=== PATIENT | male | born 1930 | race African-American/Black ===

== ENCOUNTER 2016-09-11 12:12 | Observation (INO) ==
[2016-09-11] MEDS ORDERED: 0.9 % Sodium Chloride 1,000 ML IV ONE (12:56)
[2016-09-11 13:03] LABS: Basophils % 0.7 %; Eosinophils # 0.4 K/mcL (0.0-0.6); Eosinophils % 7.3 %; Hematocrit 38.1 % (37.5-50.1); Hemoglobin 12.9 g/dL (12.9-16.9); Immature Granulocytes % 0.2 % (0-4); Immature Platelets 1.4 % (1.1-6.1); Lymphocytes # 1.5 K/mcL (0.6-4.6); Lymphocytes % 24.9 %; Mean Corpuscular HGB Conc 33.9 g/dL (31.6-35.5); Mean Corpuscular Hemoglobin 31.9 pg (28.0-33.3); Mean Corpuscular Volume 94.3 fL (83.0-100.0); Mean Platelet Volume 9.1 fL (9.4-12.4); Monocytes # 0.5 K/mcL (0.0-1.3); Monocytes % 7.8 %; Neutrophils # 3.6 K/mcL (1.6-8.9); Platelet Count 194 K/mcL (140-400); Red Blood Count 4.04 M/mcL (4.19-5.50); Red Cell Distribution Width 13.1 % (11.5-14.5); Segmented Neutrophils % 59.1 %
--- NOTE | 2016-09-11 13:12 | Emergency Department Note ---
Disposition Clinical Impression: Syncope and collapse, Prostate cancer, Dehydration Disposition: Admitted As Inpatient Condition: Fair Time of Disposition: 15:32 Syncope HPI - General Chief Complaint: ED Syncope Stated Complaint: passed out Time Seen by Provider: 09/11/16 12:14 Source: patient, family, EMS Limitations: no limitations Nursing Notes Reviewed: Yes Vital Signs Reviewed: Yes - History of Present Illness HPI Narrative: 86-year-old male with history of hypertension, hyperlipidemia, peripheral edema , he stated he has had multiple episodes of syncope in the last several years, episode 1 month ago, he presents today with an episode of syncope that lasted about a minute. 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 He was then driven to the emergency department. Patient denies any chest pain headache abdominal pain at this time. 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 Sousa in consultation with Dr. Beba Montenegro, with treatment for Prost CA with Denosumab. Patient denies any weight loss chills, headache, urinary complaints, recent fevers, any chest pain abdominal pain nausea vomiting Pt Subjective Complaint: loss of consciousness Onset (ago): hour(s) Number of episodes: 1 Duration: minutes(s) Prodromal Symptoms: none Witnessed: yes - by bystander Injuries Sustained Associated with Event: none Current Symptoms: none History: other (Prostate CA with mets to bone) - Related Data Home Medications Medication Instructions Recorded Confirmed Amlodipine Besylate 10 mg PO DAILY 09/01/16 09/11/16 Aspirin [Lo-Dose Aspirin EC] 162 mg PO DAILY 09/01/16 09/11/16 Finasteride [Proscar] 5 mg PO DAILY 09/01/16 09/11/16 Furosemide [Lasix] 20 mg PO Q48H 09/01/16 09/11/16 Losartan Potassium [Cozaar] 100 mg PO DAILY 09/01/16 09/11/16 Multivit-Min/FA/Lycopen/Lutein 1 tab PO DAILY 09/01/16 09/11/16 [Centrum Silver Men Tablet] [place]-3/Dha/Epa/Fish Oil [Fish Oil 1,000 mg PO BID 09/01/16 09/11/16 1,000 mg Softgel] Potassium Chloride [Klor-Con 10] 1 meq PO BID 09/01/16 09/11/16 Pravastatin Sodium [Pravachol] 20 mg PO DAILY 09/01/16 09/11/16 Terazosin [Hytrin] 5 mg PO HS 09/01/16 09/11/16 Previous Rx's Medication Instructions Recorded Vitamin E Acid Succinate [Vitamin 400 units PO BID #60 tab 09/01/16 E] Allergies Allergy/AdvReac Type Severity Reaction Status Date / Time No Known Allergies Allergy Verified 07/07/16 09:47 Review of Systems: A 12 point ROS was obtained from the historian. All other systems were reviewed and negative, except as per below, or as documented in the HPI. Constitutional: Denies: fever, chills, weight changes Eyes: Denies: vision changes, eye pain ENT: Denies: nasal congestion, sore throat CV: Denies: chest pain, palpitations, leg swelling Resp: Denies: cough, dyspnea, wheezes, hemoptysis GI: Denies: abdominal pain, N/V/D/C, hematochezia, melena Denies: dysuria, hematuria MSK: Denies: back pain, neck pain, extremity pain Skin: Denies: new rashes, new lesions Neuro: Positive for syncope Denies: V[place], weakness, sensory changes, gait difficulty Psych: Denies: anxiety, depression All systems ED: reviewed and negative except as stated. Past Medical History - Past Medical History Attestation: Yes The following information was validated with the patient. Source: patient Medical history: Reports: cancer, osteoporosis Psychiatric history: Reports: no psych history - Social History Smoking Status: Current every day smoker Smokeless Tobacco Status: No Alcohol use: Reports: occasionally Drug use: Reports: none Physical Exam Constitutional: alert and oriented, in NAD, vital signs reviewed and were normal limits HEENT: NCAT, sclera anicteric, PERRLA bilaterally, normal external ears bilaterally, nasal septum nondeviated, average dentition, MMM Neck: normal inspection, neck is supple, trachea midline, no JVD Resp: normal chest inspection, CTA bilaterally, no resp distress, symmetric chest rise CV: RRR, no m/g/r, Pulses +2 Rad, +2 DP/PT bilaterally, no pedal edema GI: normal inspection, Soft, NTND, BS present and normoactive Back: normal inspection, no tenderness to palpation Neuro: A&O3, CN II-XII grossly intact bilaterally, no gross motor or sensory deficits bilaterally MSK: normal inspection, bilateral UE and LE with normal ROM and no deformities Psych: normal mood, normal affect Skin: No rashes, skin warm, dry, intact - General Limitations: no limitations General appearance: alert, in no apparent distress Course Course Narrative: 86-year-old male with a normal physical exam, normal vital signs, who presents with syncope in the setting of a history of hypertension on amlodipine, losartan , and furosemide 20 mg daily for blood pressure medications although he states he did not take his blood pressure medicine today. Patient also has known stage IV prostate cancer, I suspect orthostatic versus vasovagal syncope given his history he was standing waiting to make sure he does not have any metastatic lesion to the brain, we will initially start with a CT of the head troponin EKG reviewed, shows PVCs but no other arrhythmias, at this time we will monitor given a liter of fluid, reassess - Reevaluation(s) Reevaluation #1: Given patient's multiple episodes of syncope, 4 episodes today per his possibly lost pulses during the arrest, however no compressions were performed and he resolved spontaneously, his CTA was unremarkable for any new changes, and his CT head showed only micro-vessel disease, an MRI is likely indicated and observation for syncope given his multiple comorbidities. We will call the hospitalist. Time: 15:28 Reevaluation #2: Stacey QUINTANA accepted patient for further syncope workup. Vital Signs Temperature 98.1 F 09/11/16 12:14 Pulse Rate 94 09/11/16 12:14 Respiratory Rate 18 09/11/16 12:14 Blood Pressure 127/87 09/11/16 12:14 O2 Sat by Pulse Oximetry 96 09/11/16 12:14 Temperature 98.1 F 09/11/16 12:14 Pulse Rate 92 09/11/16 14:54 Respiratory Rate 16 09/11/16 15:53 Blood Pressure 136/93 09/11/16 15:53 O2 Sat by Pulse Oximetry 97 09/11/16 14:40 Oxygen Delivery Oxygen Delivery Nasal Cannula Syncope - MDM Narrative Medical decision making narrative: 86-year-old male with syncope, concern given multiple previous episodes syncope without workup, stage IV metastatic prostate cancer, possible cardiac arrest however he was revived at the scene and came in by private vehicle, given his comorbidities including acute on chronic renal insufficiency, admitted to hospitalist for further workup of syncope, likely needs MRI brain, was stable at the time of ED disposition - Differential Diagnosis Likely: syncope due to orthostatic hypotension, vasovagal syncope, complete atrioventricular block, dehydration/metabolic disorder - Medical Records Medical records reviewed: Yes I reviewed the patient's medical records. - Lab Data Lab results reviewed: Yes I reviewed the patient's lab results. Result diagrams: 09/11/16 12:53 09/11/16 12:53 Lab Results 09/11/16 09/11/16 09/11/16 Range/Units 12:21 12:53 12:53 WBC 6.0 (4.3-11.1) K/mcL RBC 4.04 L (4.19-5.50) M/mcL Hgb 12.9 (12.9-16.9) g/dL Hct 38.1 (37.5-50.1) % MCV 94.3 (83.0-100.0) fL MCH 31.9 (28.0-33.3) pg MCHC 33.9 (31.6-35.5) g/dL RDW 13.1 (11.5-14.5) % Plt Count 194 (140-400) K/mcL MPV 9.1 L (9.4-12.4) fL Immature Gran % 0.2 (0-4) % Seg Neutrophils % 59.1 % Lymphocytes % 24.9 % Monocytes % 7.8 % Eosinophils % 7.3 % Basophils % 0.7 % Neutrophils # 3.6 (1.6-8.9) K/mcL Lymphocytes # 1.5 (0.6-4.6) K/mcL Monocytes # 0.5 (0.0-1.3) K/mcL Eosinophils # 0.4 (0.0-0.6) K/mcL Basophils # 0.0 (0.0-0.2) K/mcL Immature Plt Fraction 1.4 (1.1-6.1) % PT 12.0 (9.4-12.1) Seconds INR 1.1 APTT 24.9 L (26.0-36.0) Seconds Sodium (136-145) mEq/L Potassium (3.5-4.5) mEq/L Chloride (98-109) mEq/L Carbon Dioxide (19-29) mEq/L BUN (8-26) mg/dL Creatinine (0.72-1.25) mg/dL Est GFR ( Amer) (> 60) Est GFR (Non-Af Amer) (> 60) BUN/Creatinine Ratio (6-26) Glucose (70-99) mg/dL POC Glucose 126 H (58-89) Calculated Osmolality (280-300) Calcium (8.6-10.8) mg/dL Troponin I (0-0.03) ng/mL Urine Color (Yellow) Urine Clarity (Clear) Urine pH (5.0-8.0) pH Units Ur Specific [place] (1.010-1.025) Urine Protein (Neg-Trace) mg/dL Urine Glucose (UA) (Normal) mg/dL Urine Ketones (Negative) mg/dL Urine Blood (Negative) Urine Nitrite (Negative) Urine Bilirubin (Negative) Urine Urobilinogen (Normal) mg/dL Ur Leukocyte Esterase (Negative) Ur Culture Indicated? (NO) 09/11/16 09/11/16 09/11/16 Range/Units 12:53 12:53 14:41 WBC (4.3-11.1) K/mcL RBC (4.19-5.50) M/mcL Hgb (12.9-16.9) g/dL Hct (37.5-50.1) % MCV (83.0-100.0) fL MCH (28.0-33.3) pg MCHC (31.6-35.5) g/dL RDW (11.5-14.5) % Plt Count (140-400) K/mcL MPV (9.4-12.4) fL Immature Gran % (0-4) % Seg Neutrophils % % Lymphocytes % % Monocytes % % Eosinophils % % Basophils % % Neutrophils # (1.6-8.9) K/mcL Lymphocytes # (0.6-4.6) K/mcL Monocytes # (0.0-1.3) K/mcL Eosinophils # (0.0-0.6) K/mcL Basophils # (0.0-0.2) K/mcL Immature Plt Fraction (1.1-6.1) % PT (9.4-12.1) Seconds INR APTT (26.0-36.0) Seconds Sodium 142 (136-145) mEq/L Potassium 3.4 L (3.5-4.5) mEq/L Chloride 107 (98-109) mEq/L Carbon Dioxide 24 (19-29) mEq/L BUN 24 (8-26) mg/dL Creatinine 1.59 H (0.72-1.25) mg/dL Est GFR ( Amer) 51 L (> 60) Est GFR (Non-Af Amer) 42 L (> 60) BUN/Creatinine Ratio 15 (6-26) Glucose 133 H (70-99) mg/dL POC Glucose (58-89) Calculated Osmolality 300 (280-300) Calcium 9.3 (8.6-10.8) mg/dL Troponin I 0.00 (0-0.03) ng/mL Urine Color Yellow (Yellow) Urine Clarity Clear (Clear) Urine pH 6.5 (5.0-8.0) pH Units Ur Specific [place] 1.014 (1.010-1.025) Urine Protein Negative (Neg-Trace) mg/dL Urine Glucose (UA) Normal (Normal) mg/dL Urine Ketones Negative (Negative) mg/dL Urine Blood Negative (Negative) Urine Nitrite Negative (Negative) Urine Bilirubin Negative (Negative) Urine Urobilinogen Normal (Normal) mg/dL Ur Leukocyte Esterase Negative (Negative) Ur Culture Indicated? NO (NO) - Radiology Data Radiology results reviewed: Yes I reviewed the patient's radiology results. - EKG Data EKG attestation: Yes I reviewed and interpreted this EKG. EKG results narrative: Sinus rhythm with frequency supraventricular premature complexes, ventricular rate 95 MT 185 QRS 84 QTc 431 EKG shows normal: sinus rhythm Rate: normal Rhythm: PVC's [place]/QRS: normal Interpretation: no acute changes (Compared with EKG in 2009) - Core Measures AMI Core Measures Followed: No Measure Exclusions: not indicated Attestation Statement - Attestation Attestation: For this encounter, I have reviewed the resident, CARBIDE OPERATOR, or PA documentation, treatment plan, and medical decision making; and I have had face to face time with this patient. 86-year-old male brought in by EMS after a syncopal episode at [employer]. Patient states that he was singing at the [address] [place] [address] when he suddenly became lightheaded and lost consciousness. 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 reports the patient was unconscious for greater than 1 minute less than 5 minutes. Patient did not lose control of his bowel or bladder while this happened. He did not have any history of seizures in the past. No recent trauma other than the fall today. Patient denies fever, chills, nausea, vomiting, diarrhea. Patient had one episode similar to this in the past but he was not evaluated at that time. CT of the head and CTA of the chest are negative for acute intracranial hemorrhage or evidence of PE. Patient does have a history of metastatic cancer. It is likely that the patient suffered a vasovagal syncope while standing for an extended period of time however because the EMS provider was not able to determine a pulse and the patient has not been worked up for this in the past he will be admitted for further care and evaluation.
[2016-09-11 13:15] LABS: Calcium 9.3 mg/dL (8.6-10.8); Potassium 3.4 mEq/L (3.5-4.5)
[2016-09-11 13:19] LABS: INR 1.1
[2016-09-11 13:21] LABS: Activated Partial Thrombo Time 24.9 Seconds (26.0-36.0)
[2016-09-11 14:51] LABS: Bilirubin,Urine Negative (Negative); Blood,Urine Negative (Negative); Clarity,Urine Clear (Clear); Color,Urine Yellow (Yellow); Glucose,Urine (UA) Normal (Normal); Ketones,Urine Negative (Negative); Leukocyte Esterase,Urine Negative (Negative); Nitrite,Urine Negative (Negative); PH,Urine 6.5 pH Units (5.0-8.0); Protein,Urine Negative (Neg-Trace); Specific Gravity,Urine 1.014 (1.010-1.025); Urobilinogen,Urine Normal (Normal)
--- NOTE | 2016-09-11 20:04 | Internal Med History&Physical ---
Date of Encounter: 09/11/16 Time of Encounter: 20:01 Assessment and Plan (1) Syncope Current visit: Yes Status: Acute Likely vasovagal etiology given presentation of symptoms, but cannot rule out cardiac vs. vascular Will obtain stress echo as patient has frequent PVCs on EKG, will place on telemetry Obtain carotid dopplers, TSH and lipid panel for AM Cannot rule out seizure at this time, may consider neurology consult Continue home ASA, statin Negative orthostatic vital signs Qualifiers: Qualified Code(s): R55 - Syncope and collapse (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 Current visit: Yes Status: Chronic Patient follows with Dr. Hurst as outpatient and gets injections every 1st of the month May decide to consult if suspect chemotherapy may be causing side effects of syncope (3) CKD (chronic kidney disease) stage 3, GFR 30-59 ml/min Current visit: Yes Status: Chronic Apparently he is unsure of his kidney disease, but his Cr was at baseline upon presentation He did receive contrast during CTA, will monitor Cr closely and avoid nephrotoxic agents (4) Hypertension Current visit: Yes Status: Chronic Blood pressure stable WNL upon presentation Will hold home Norvasc and Cozaar in setting of syncope Qualifiers: Qualified Code(s): I10 - Essential (primary) hypertension (5) DVT prophylaxis Current visit: Yes Status: Acute Heparin 5000 units BID Internal Medicine - H&P: HPI Chief complaint: syncope Admitted From: Home Plans for Post Hospital Care: Home History of present illness: Mr. Monroe is a 86 year old male who presents to the emergency department after an episode of syncope earlier this morning. He states that he was at [employer] singing in the choir when he became lightheaded and lost consciousness. He states this was witnessed and he was out for at least a minute. When he regained consciousness he denied any confusion, visual changes, nausea, headache , and did not have any incontinence or tongue biting. He does have a history of hypertension but says he forgot to take them this morning and did not eat breakfast as well. He states that he had an 2 other episodes similar to this, last one 6 weeks prior and his first episode 4 or 5 years ago. He does have a history of stage IV prostate cancer with metastases to the ribs and vertebral body, and has been undergoing chemotherapy which is managed by Dr. Hurst. He admits to having difficulties hearing and is worried about the side effects of his chemotherapy worsening his hearing. He currently denies any chest pain, reports of breath, fever, diarrhea, vomiting. Past Med Surg Social Fam HX - Past Medical History Medical history: cancer, hypertension Psychiatric history: no psych history - Social History Smoking Status: Former smoker Smokeless Tobacco Status: No Alcohol use: occasionally Drug use: none Internal Medicine - H&P: Meds Amlodipine Besylate 10 mg PO DAILY 09/01/16 [History] Aspirin [Lo-Dose Aspirin EC] 162 mg PO DAILY 09/01/16 [History] Finasteride [Proscar] 5 mg PO DAILY 09/01/16 [History] Furosemide [Lasix] 20 mg PO Q48H 09/01/16 [History] Losartan Potassium [Cozaar] 100 mg PO DAILY 09/01/16 [History] Multivit-Min/FA/Lycopen/Lutein [Centrum Silver Men Tablet] 1 tab PO DAILY [History] [place]-3/Dha/Epa/Fish Oil [Fish Oil 1,000 mg Softgel] 1,000 mg PO BID 09/01/16 [ History] Potassium Chloride [Klor-Con 10] 1 meq PO BID 09/01/16 [History] Pravastatin Sodium [Pravachol] 20 mg PO DAILY 09/01/16 [History] Terazosin [Hytrin] 5 mg PO HS 09/01/16 [History] Vitamin E Acid Succinate [Vitamin E] 400 units PO BID #60 tab 09/01/16 [Rx] Allergies No Known Allergies Allergy (Verified 07/07/16 09:47) All Systems PM: A 10-system review of systems was performed and is negative for pertinent findings except as documented above in the HPI. - Constitutional Constitutional: falls, no chills, no fever(s), no night sweats - EENT Eyes: no change in vision, no discharge, no pain, no photophobia Ears: decreased hearing, no ear discharge, no ear pain, no tinnitus Nose, mouth and throat: no dysphagia, no nasal discharge, no neck pain, no sore throat - Cardiovascular Cardiovascular ROS IM: irregular heart rhythm (PVCs), lightheadedness, no chest pain, no diaphoresis, no dyspnea, no palpitations, no syncope - Respiratory Respiratory: no cough, no dyspnea, no wheezing, no excessive phlegm production - Gastrointestinal Gastrointestinal: no abdominal pain, no diarrhea, no hematemesis, no hematochezia, no melena, no nausea, no vomiting - Musculoskeletal Musculoskeletal ROS IM: no numbness, no tingling - Integumentary Integumentary IM: no rash, no unusual bruising - Neurological Neurological ROS: no confusion, no convulsions, no focal weakness, no numbness, no tingling, no tremor(s) - Hematologic/Lymphatic Hematologic/Lymphatic: no easy bruising - Constitutional Vitals: Temp Pulse Resp BP Pulse Ox 98.6 F 85 12 122/92 96 09/11/16 16:46 09/11/16 16:46 09/11/16 16:46 09/11/16 16:46 09/11/16 16:53 General appearance: Present: cooperative, pleasant, no acute distress, answers questions appropriately - Head Head exam: Present: atraumatic, normocephalic - Eye Eye exam: Present: PERRL, conjuntiva pink, sclera anicteric - Neck Neck exam general surgery: Present: supple, trachea midline. Absent: lymphadenopathy - Respiratory Respiratory exam: Present: CTAB. Absent: accessory muscle use, rales, rhonchi, wheezes - Cardiovascular Cardiovascular exam: Present: RRR, +S1, +S2. Absent: diastolic murmur, gallop, rubs, systolic murmur - GI/Abdominal GI/Abdominal exam: Present: normal bowel sounds, soft, no peritoneal signs. Absent: distended, tenderness - Extremities Exam Extremities exam: Present: pedal edema (trace pitting edema), warm, radial pulses palpable and symetrical. Absent: calf tenderness, cyanotic - Neurological Exam Neurological exam: Present: alert, no focal deficits. Absent: facial droop, speech deficit - Skin Skin exam: Present: dry, intact Internal Med - H&P Results - Labs CBC & Chem 7: 09/11/16 12:53 09/11/16 12:53
[2016-09-11] MEDS ORDERED: Ondansetron ODT 4 MG TAB.RAPDIS SL PRN (20:08)
[2016-09-11] MEDS ORDERED: Acetaminophen 325 MG TABLET PO PRN (20:08)
[2016-09-11] MEDS ORDERED: Naloxone 0.4 MG/ML INJ IVP PRN (20:08)
[2016-09-11] MEDS ORDERED: 0.9 % Sodium Chloride 1,000 ML IVC SCH (23:45)
[2016-09-12 04:48] LABS: Basophils % 0.7 %; Eosinophils # 0.5 K/mcL (0.0-0.6); Eosinophils % 7.4 %; Hematocrit 34.8 % (37.5-50.1); Hemoglobin 11.7 g/dL (12.9-16.9); Immature Granulocytes % 0.2 % (0-4); Lymphocytes # 2.4 K/mcL (0.6-4.6); Lymphocytes % 39.3 %; Mean Corpuscular HGB Conc 33.6 g/dL (31.6-35.5); Mean Corpuscular Hemoglobin 32.1 pg (28.0-33.3); Mean Corpuscular Volume 95.6 fL (83.0-100.0); Mean Platelet Volume 9.3 fL (9.4-12.4); Monocytes # 0.5 K/mcL (0.0-1.3); Monocytes % 8.4 %; Neutrophils # 2.7 K/mcL (1.6-8.9); Platelet Count 165 K/mcL (140-400); Red Blood Count 3.64 M/mcL (4.19-5.50); Red Cell Distribution Width 13.2 % (11.5-14.5)
[2016-09-12 05:05] LABS: Alanine Aminotransferase 15 Units/L (0-55); Albumin 3.4 g/dL (3.5-5.0); Albumin/Globulin Ratio 1.1 (1.1-2.2); Alkaline Phosphatase 52 Units/L (38-126); Aspartate Amino Transferase 22 Units/L (5-34); BUN/Creatinine Ratio 16 (6-26); Bilirubin,Total 0.5 mg/dL (0.2-1.2); Blood Urea Nitrogen 19 mg/dL (8-26); Calcium 8.8 mg/dL (8.6-10.8); Carbon Dioxide 24 mEq/L (19-29); Chloride 109 mEq/L (98-109); Globulin 3.1 g/dL (2.4-3.5); Glucose 99 mg/dL (70-99); Magnesium 1.7 mg/dL (1.6-2.6); Osmolality,Calculated 296 (280-300); Phosphorous 3.1 mg/dL (2.3-4.7); Potassium 3.6 mEq/L (3.5-4.5); Sodium 142 mEq/L (136-145); Total Protein 6.5 g/dL (6.0-8.3); Triglycerides 103 mg/dL (< 150); eGFR For African Americans > 60 (> 60); eGFR For Non-African Americans 57 (> 60)
[2016-09-12 05:06] LABS: Chol/HDL Ratio 3.3 (0-4.9); Cholesterol 135 mg/dL (< 200); HDL Cholesterol 41 mg/dL (40-59); LDL Cholesterol,Calculated 73 mg/dL (0-99)
[2016-09-12] MEDS ORDERED: *HR* Heparin 5,000 UNIT/ML VIAL SQ SCH (06:00)
[2016-09-12] MEDS ORDERED: Finasteride 5 MG TABLET PO SCH (09:00)
[2016-09-12] MEDS ORDERED: Aspirin Enteric Coated 81 MG Tablet PO SCH (09:00)
[2016-09-12 11:06] VITALS: BP 111/70
--- NOTE | 2016-09-12 12:24 | Exercise Stress Test ---
Stress Echocardiogram No Doppler Name: Bola Monroe Date of Study: 09/12/2016 Date: 1930 Ht: 71.0in Medical Record#: [id number] Age: 86 Wt: 182.0lb Gender: Male BSA: 2.03 Order #: [id number] Location: [facility] OP Room #: [id number] Reading Physician: Milton Ibrahim DO, FACC, FASE, FASNC Animal Trainer: Stacey Arboleda RDCS, RVT Supervising Provider: Florencio Logan CNP Primary Physician: Jimmy Crawford MD Ordering Physician: Harshad Tanner DO Indications: Syncope, PVCs Impressions: Stress ECG/echocardiogram negative for ischemia. Findings: Study Quality * Technically adequate exam. Rest Echocardiogram * LVEF 60-65%. * Normal left ventricular structure and function. Stress Echocardiogram * Normal sinus rhythm at rest. * Occasional PACs noted prior to exam beginning. * Stress ECG is negative for ischemia. * The patient demonstrated a normal blood pressure response. * Occasional PACs noted during and post exercise. Two PVCs seen during recovery. * The exercise capacity was fair. * No chest pain during stress procedure. * Appropriate increase EF with stress. No segmental wall motion abnormalities that would suggest ischemia. Left Ventricular Wall Motion: Rest Echo Findings All wall segments showed normal motion. Stress Echo Findings The apex, apical inferior, mid inferior, basal inferior, apical anterior, mid anterior, basal anterior, apical septal, mid inferior septal, basal inferior septal, apical lateral, mid anterior lateral, basal anterior lateral, mid anterior septal, mid inferior lateral, basal anterior septal and basal inferior lateral goncalves were hyperkinetic. Stress Test Summary: Treadmill Protocol: Chip Baseline Information: Resting Heart Rate: 100 Predicted Max HR: 136 Resting BP: 104/70 Stress Information: Stress Time: 3 Test Terminated Due to: Fatigue Maximum Blood Pressure: 150/80 Maximum Heart Rate: 146 Percent Maximum Heart Rate Achieved: 108 Double Product: 21,900 METS Reached: 4.6 History: Hypertension Hypercholesteremia Medication Given: Time Medication Dose Units Route Updated by Milton Ibrahim DO, FACC, FASE, FASNC on 09/12/2016 12:19:15 PM electronically signed on 09/12/2016 12:20:33 PM with status of Final Wall Motion [place]: 1=Normal, 2=Hypokinesis, 3=Akinesis, 4=Dyskinesis, 5=Aneurysmal, 6=Hyperkinetic, X=Not Visualized (Blank)=Missing Rest Stress
--- NOTE | 2016-09-12 13:55 | Discharge Summary ---
Date of Encounter: 09/12/16 Time of Encounter: 12:45 - Discharge Diagnosis (1) Syncope and collapse Priority: Primary Status: Acute Comments: Family dehydrated upon presentation. Also, patient remained normotensive despite not receiving his amlodipine 10 mg and his losartan 100 mg while admitted. Recommend daily blood pressure checks at home, keeping a log, and following up outpatient for possible decreasing of these dosages. (2) Dehydration Priority: Primary Status: Resolved Comments: Tolerated regular diet prior to discharge, acute kidney injury resolved. (3) DVT prophylaxis Priority: Primary Status: Acute Comments: Subcutaneous heparin while admitted (4) Prostate cancer Priority: Secondary Status: Chronic (5) CKD (chronic kidney disease) stage 3, GFR 30-59 ml/min Priority: Secondary Status: Chronic Comments: Mild acute kidney injury upon presentation, resolved. Creatinine normal on day of discharge. Follow-up outpatient. (6) Hypertension Priority: Secondary Status: Chronic Comments: Controlled, follow-up outpatient. 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 - Discharge Medications Home Medications: Amlodipine Besylate 10 mg PO DAILY 09/01/16 [History] Aspirin [Lo-Dose Aspirin EC] 162 mg PO DAILY 09/01/16 [History] Finasteride [Proscar] 5 mg PO DAILY 09/01/16 [History] Furosemide [Lasix] 20 mg PO Q48H 09/01/16 [History] Losartan Potassium [Cozaar] 100 mg PO DAILY 09/01/16 [History] Multivit-Min/FA/Lycopen/Lutein [Centrum Silver Men Tablet] 1 tab PO DAILY [History] Mcgee-3/Dha/Epa/Fish Oil [Fish Oil 1,000 mg Softgel] 1,000 mg PO BID 09/01/16 [ History] Potassium Chloride [Klor-Con 10] 1 meq PO BID 09/01/16 [History] Pravastatin Sodium [Pravachol] 20 mg PO HS 09/01/16 [History] Terazosin [Hytrin] 5 mg PO HS 09/01/16 [History] Vitamin E Acid Succinate [Vitamin E] 400 units PO BID #60 tab 09/01/16 [Rx] Allergies/Adverse Reactions: Allergies No Known Allergies Allergy (Verified 07/07/16 09:47) Procedures/tests Complete & Pending: Procedures Performed prior 72 hours Category Date Time Status EV carotid duplex imaging BI Routine Y 09/12/16 08:30 Completed EV stress echo Routine Y 09/12/16 08:00 Completed Date of admission: 09/11/16 15:37 Primary care physician: Jimmy Crawford MD Discharging clinician: Dori Vela Anticipated date of discharge: 09/12/16 - Patient Status Disposition: Home, Self-Care Condition: Fair Functional capacity at discharge: independent ambulation Overall status at discharge: patient is back to baseline - Discharge Instructions Instructions: Syncope (DC) Follow Up With: Jimmy Crawford MD [Primary Care Provider] - 09/19/16 9:45 am Additional Instructions: Follow-up with primary care provider as scheduled, check blood pressure daily at home and keep a log. - Diet and Activity Activity: increase activity as tolerated Diet: low salt diet Hospital course: Mr. 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 Patient presented to the emergency department with chief complaint syncopal episode. Patient stating he was at [employer] singing in choir when he became lightheaded and lost consciousness. He states this was a witnessed episode and he was out for at least 1 minute. He regained consciousness and denied confusion, visual changes, nausea, headache, or incontinence. Patient stating he did not eat breakfast prior to this episode. Patient stating he has had 2 other episodes similar to this in the past one 6 weeks ago and one for 5 years ago. Workup in the emergency department notable for mild acute kidney injury superimposed on chronic kidney disease. Chest x-ray negative. Head CT negative. Elevated d-dimer noted and a chest CTA ruled out a PE. Patient was admitted to the hospitalist service for further evaluation and management. He was hydrated and observed overnight. He was asymptomatic throughout this admission and denied pain, lightheadedness , dizziness. Orthostatic vital signs unremarkable. Acute kidney injury resolved. Carotid ultrasound unremarkable. Urinalysis negative. He remained alert and oriented 3 throughout this admission. Of note, his home antihypertensive medications of amlodipine 10 mg and losartan 100 mg were not continued during this admission however he remained normotensive on day of discharge. Recommend daily blood pressure checks at home, and following up with his primary care provider for possible titration of these medications. He was discharged home in stable condition with close outpatient follow-up recommended. ITS Impressions Chest X-Ray 09/11/16 12:14 IMPRESSION: 1. No acute radiographic finding in the chest. D/ / Diego Hernandez MD / Diego Hernandez MD Interpreting Provider: Diego Hernandez MD Head CT 09/11/16 12:48 IMPRESSION: 1. No acute intracranial abnormality. 2. Mild chronic microvascular white matter ischemic disease D/ / 09/11/2016 14:55:22 Waylon Joe MD / anna Interpreting Provider: Waylon Joe MD Chest CTA 09/11/16 13:20 IMPRESSION: No evidence of pulmonary embolism or acute pulmonary abnormality. Osseous metastatic disease throughout the thorax compatible with findings as identified on prior nuclear medicine bone scan dated May 20, 2016. D/ / Tip Mcelroy MD / Tip Mcelroy MD Interpreting Provider: Tip Mcelroy MD Stress echocardiogram impressions: Stress ECG/echocardiogram negative for ischemia. - Time Spent with Patient Total time spent providing and/or coordinating discharge services: - Constitutional Vitals: Temp Pulse Resp BP Pulse Ox 98.4 F 89 16 111/70 95 09/12/16 11:05 09/12/16 11:05 09/12/16 11:05 09/12/16 11:05 09/12/16 11:05 General appearance: Present: cooperative, A&O X 3, pleasant, no acute distress, answers questions appropriately - Head Head exam: Present: atraumatic, normocephalic - Eye Eye exam: Present: PERRL, conjuntiva pink, sclera anicteric Pupils: Present: PERRL - Neck Neck exam general surgery: Present: supple, trachea midline. Absent: lymphadenopathy - Respiratory Respiratory exam: Present: CTAB. Absent: accessory muscle use, rales, respiratory distress, rhonchi, wheezes - Cardiovascular Cardiovascular exam: Present: RRR, +S1, +S2. Absent: diastolic murmur, gallop, rubs, systolic murmur - GI/Abdominal GI/Abdominal exam: Present: normal bowel sounds, soft, no peritoneal signs. Absent: distended, tenderness - Extremities Exam Extremities exam: Present: warm, radial pulses palpable and symetrical. Absent : calf tenderness, cyanotic, pedal edema - Neurological Exam Neurological exam: Present: alert, CN II-XII intact, normal gait, oriented X3, no focal deficits, strengths equal and symetr throughout. Absent: pronater drift, facial droop, speech deficit - Skin Skin exam: Present: dry, intact, normal color, warm - VTE Reasons for not Prescribing Prophylaxis: Treatment not Indicated - Low risk for VTE
--- NOTE | 2016-09-13 14:11 | Carotid Imaging Report ---
Carotid Duplex Patient Name:Bola Monroe Order Number:[id number] Procedure Date:09/12/2016 Date:1930ge:86 yrs Gender:Male Lt BP:124 / 70 mmHg Rt.BP:126 / 78 mmHgHeart Rate: Location:[facility] Room #: 3B34 Radiology Services Manager:Stacey Arboleda, RDCS, RVT Referring MD:Harshad Tanner DO printed circuit layout taper:Jimmy Crawford MD Reading MD:Zach Elias MD , FACS Primary Indications:Syncope Risk Factors Yes/No Hypertension Yes Hypercholesterolemia Yes Diabetes No Hx of TIA No Hx of CVA No Smoker Previous Yes Impressions: Findings: Bilateral carotid systems are essentially normal. Recommendations: After imaging the patient returned to their room. Findings Carotid Duplex: Gallardo scale imaging combined with Doppler flow analysis suggests normal findings bilaterally. Right: There is an antegrade spectral Doppler flow pattern in the right vertebral artery. Left: There is an antegrade spectral Doppler flow pattern in the left vertebral artery. Prior Study: No prior study available for comparison. Carotid Results Right PSV EDV Assessment Proximal CCA 94 20 Normal Mid CCA 62 15 Normal Distal CCA 58 14 Normal Bifurcation 41 14 Normal Proximal ICA 30 11 Normal Mid ICA 34 16 Normal Distal ICA 33 13 Normal ECA 78 16 Normal Vertebral Artery 41 13 Antegrade Flow Left PSV EDV Assessment Proximal ICA 45 22 Normal Mid ICA 26 8 Normal Distal ICA 24 12 Non Stenotic Plaque ECA 36 9 Normal Vertebral Artery 33 11 Antegrade Flow Proximal CCA 65 19 Normal Mid CCA 56 17 Normal Distal CCA 51 13 Normal Bifurcation 24 6 Normal Ratio's Right ICA/CCA Ratio: 0.55 ICA/CCA Values: 34/62 Left ICA/CCA Ratio: 0.80 ICA/CCA Values: 45/56 Updated by Zach Elias MD, FACS on 09/13/2016 2:04:17 PM Zach Elias MD electronically signed on 09/13/2016 2:05:17 PM with status of Final
--- NOTE | 2016-09-13 17:41 | Electrocardiograph Report ---
[address] [address] Test Date: 2016-09-11 Pat Name: Bola Monroe Department: 104 Room: 3B Gender: M Director Of Income Tax: : 1930 Requested By: Nickolas Zamora Order Number: [id number] Reading MD: Josefina Phillips Measurements Intervals [place] Rate: 95 P: 75 ME: 185 QRS: 10 QRSD: 84 T: 44 QT: 378 QTc: 431 Interpretive Statements SINUS RHYTHM WITH SUPRAVENTRICULAR PREMATURE COMPLEXES NONSPECIFIC T-WAVE ABNORMALITY ABNORMAL RHYTHM ECG Electronically Signed On 09-13-2016 17:39:57 EST by Josefina Phillips
== END 2016-09-12 14:30 | disposition home or self-care (01) ==
LOC: EMEROO 12:12 → 3BNU 12:12 → SUATTDRO 15:37 → 3BNU 15:59
PROVIDERS: ADMIT Registered Nurse; ATTEND Internal Medicine

== ENCOUNTER 2017-08-07 18:37 | Inpatient (IN) ==
[2017-08-07] MEDS ORDERED: 0.9 % Sodium Chloride 1,000 ML IVC ONE ×2 (18:40→19:54)
--- NOTE | 2017-08-07 18:44 | Emergency Department Note ---
Disposition Clinical Impression: Episode of syncope, Anemia, Elevated troponin Disposition: Admitted As Inpatient Condition: Good Referrals: Jimmy Crawford MD [Primary Care Provider] - Forms: ED Satisfaction Letter, Work/School Release General Adult HPI - General Chief complaint: ED General Medical Stated complaint: near syncope Time Seen by Provider: 08/07/17 18:39 Nursing Notes Reviewed: Yes Vital Signs Reviewed: Yes - Related Data Home Medications Medication Instructions Recorded Confirmed Amlodipine Besylate 10 mg PO DAILY 09/01/16 08/07/17 Aspirin [Lo-Dose Aspirin EC] 162 mg PO DAILY 09/01/16 08/07/17 Finasteride [Proscar] 5 mg PO DAILY 09/01/16 08/07/17 Furosemide [Lasix] 20 mg PO Q48H PRN 09/01/16 08/07/17 Losartan Potassium [Cozaar] 100 mg PO DAILY 09/01/16 08/07/17 Multivit-Min/FA/Lycopen/Lutein 1 tab PO DAILY 09/01/16 08/07/17 [Centrum Silver Men Tablet] Potassium Chloride [Klor-Con 10] 40 meq PO DAILY 09/01/16 08/07/17 Pravastatin Sodium [Pravachol] 20 mg PO HS 09/01/16 08/07/17 Terazosin [Hytrin] 5 mg PO HS 09/01/16 08/07/17 Timolol Maleate 0.5% 1 drop RIGHT EYE BID 07/27/17 08/07/17 Dexamethasone [Decadron] 8 mg PO BID 08/07/17 Polyethylene Glycol 3350 17 gm PO DAILY PRN 08/07/17 08/07/17 [Polyethylene Glycol 3350] Previous Rx's Medication Instructions Recorded Gabapentin [Neurontin] 300 mg PO TID #90 capsule 04/18/17 Vitamin E Acid Succinate [Vitamin 400 units PO BID #60 tab 04/18/17 E] predniSONE [PredniSONE] 5 mg PO BIDWM #60 tablet 06/26/17 Omeprazole [PriLOSEC] 20 mg PO BIDAC #30 cap 07/10/17 Ondansetron HCl [Zofran] 4 mg PO Q4H PRN #30 tablet 07/10/17 Prochlorperazine Maleate 10 mg PO Q6H PRN #30 tablet 07/10/17 [Compazine] Dronabinol [Marinol] 5 mg PO BIDLS #60 capsule 07/29/17 Allergies Allergy/AdvReac Type Severity Reaction Status Date / Time terbinafine [From Lamisil] Allergy Rash Verified 08/01/17 10:02 Past Medical History - Past Medical History Medical history: Reports: hypertension, cancer Psychiatric history: Reports: no psych history - Social History Smoking Status: Former smoker Smokeless Tobacco Status: No Alcohol use: Reports: occasionally Drug use: Reports: none Course Vital Signs Temperature 98.4 F 08/07/17 18:40 Pulse Rate 130 08/07/17 18:40 Respiratory Rate 18 08/07/17 18:40 Blood Pressure 75/56 08/07/17 18:40 O2 Sat by Pulse Oximetry 98 08/07/17 18:40 Temperature 98.4 F 08/07/17 18:40 Pulse Rate 130 08/07/17 18:40 Respiratory Rate 18 08/07/17 18:40 Blood Pressure 75/56 08/07/17 18:40 O2 Sat by Pulse Oximetry 100 08/07/17 19:10 Oxygen Delivery Oxygen Delivery Nasal Cannula Medical Decision Making - MDM Narrative Medical decision making narrative: This documentation is done with the assistance of Dragon dictation. There may be inaccuracies in record center specialist or spelling and typographical errors. I examined this patient and my medical decision-making was reviewed with the Resident Physician. I agree with the documented findings, disposition and treatment plan as described except to the extent set forth below. Patient was seen on arrival with EMS Dr. Britton, agree with his evaluation treatment plan, I supervised the care of the patient's stay. Patient presents from home with weakness. He had a recent admission due to symptomatically anemia and had a blood transfusion. He said he did not pass out today he said he sat down in his chair felt like using a pass out but did not denies any chest pain or shortness of breath. He has a history of deconditioning prostate cancer kidney disease and anemia. We will check lab work on him EKG and reassess. Waiting on his family to come in for more history. - Lab Data Result diagrams: 08/07/17 19:00 08/07/17 19:00 Lab Results 08/07/17 08/07/17 08/07/17 Range/Units 19:00 19:00 19:00 WBC 2.5 L (4.3-11.1) K/mcL RBC 3.23 L (4.19-5.50) M/mcL Hgb 9.2 L (12.9-16.9) g/dL Hct 29.5 L (37.5-50.1) % MCV 91.3 (83.0-100.0) fL MCH 28.5 (28.0-33.3) pg MCHC 31.2 L (31.6-35.5) g/dL RDW 17.7 H (11.5-14.5) % Plt Count 255 (140-400) K/mcL MPV 9.2 L (9.4-12.4) fL Immature Gran % 0.8 (0-4) % Seg Neutrophils % 60.4 % Lymphocytes % 31.6 % Monocytes % 6.8 % Eosinophils % 0.0 % Basophils % 0.4 % Neutrophils # 1.5 L (1.6-8.9) K/mcL Lymphocytes # 0.8 (0.6-4.6) K/mcL Monocytes # 0.2 (0.0-1.3) K/mcL Eosinophils # 0.0 (0.0-0.6) K/mcL Basophils # 0.0 (0.0-0.2) K/mcL Nucleated RBCs/100 WBC 1.6 H (0) /100 WBC PT 16.1 H (9.4-12.1) Seconds INR 1.5 APTT 25.1 L (26.0-36.0) Seconds Sodium 141 (136-145) mEq/L Potassium 3.9 (3.5-5.1) mEq/L Chloride 110 H (98-107) mEq/L Carbon Dioxide 20 L (23-29) mEq/L BUN 45 H (8-23) mg/dL Creatinine 1.43 H (0.70-1.30) mg/dL Est GFR ( Amer) 57 L (> 60) Est GFR (Non-Af Amer) 47 L (> 60) BUN/Creatinine Ratio 31 H (6-26) Glucose 192 H (70-105) mg/dL Calculated Osmolality 309 H (280-300) Calcium 6.6 L (8.6-10.3) mg/dL Troponin I (< 0.04) ng/mL Blood Type Antibody Screen 08/07/17 08/07/17 Range/Units 19:00 19:00 WBC (4.3-11.1) K/mcL RBC (4.19-5.50) M/mcL Hgb (12.9-16.9) g/dL Hct (37.5-50.1) % MCV (83.0-100.0) fL MCH (28.0-33.3) pg MCHC (31.6-35.5) g/dL RDW (11.5-14.5) % Plt Count (140-400) K/mcL MPV (9.4-12.4) fL Immature Gran % (0-4) % Seg Neutrophils % % Lymphocytes % % Monocytes % % Eosinophils % % Basophils % % Neutrophils # (1.6-8.9) K/mcL Lymphocytes # (0.6-4.6) K/mcL Monocytes # (0.0-1.3) K/mcL Eosinophils # (0.0-0.6) K/mcL Basophils # (0.0-0.2) K/mcL Nucleated RBCs/100 WBC (0) /100 WBC PT (9.4-12.1) Seconds INR APTT (26.0-36.0) Seconds Sodium (136-145) mEq/L Potassium (3.5-5.1) mEq/L Chloride (98-107) mEq/L Carbon Dioxide (23-29) mEq/L BUN (8-23) mg/dL Creatinine (0.70-1.30) mg/dL Est GFR ( Amer) (> 60) Est GFR (Non-Af Amer) (> 60) BUN/Creatinine Ratio (6-26) Glucose (70-105) mg/dL Calculated Osmolality (280-300) Calcium (8.6-10.3) mg/dL Troponin I 0.04 H* (< 0.04) ng/mL Blood Type O POSITIVE Antibody Screen NEGATIVE
--- NOTE | 2017-08-07 18:53 | Emergency Department Note ---
Disposition Clinical Impression: Elevated troponin Episode of syncope Qualifiers: Syncope type: unspecified Qualified Code(s): R55 - Syncope and collapse Anemia Qualifiers: Anemia type: unspecified type Qualified Code(s): D64.9 - Anemia, unspecified Disposition: Admitted As Inpatient Condition: Good Referrals: Jimmy Crawford MD [Primary Care Provider] - Forms: ED Satisfaction Letter, Work/School Release General Adult HPI - General Chief complaint: ED General Medical Stated complaint: near syncope Time Seen by Provider: 08/07/17 18:39 Source: patient, EMS Mode of arrival: EMS Limitations: no limitations Nursing Notes Reviewed: Yes Vital Signs Reviewed: Yes - History of Present Illness HPI Narrative: 87-year-old male history of prostatic cancer with metastasis currently on chemotherapy with last treatment last week who presents to the ER via EMS due to syncopal episode. Patient states he has felt generalized weakness today. States he is also been more short of breath. Reports he was sitting in his recliner with his feet up whenever he just lost consciousness. Thinks she was out for a few minutes. His was there. He did not fall out of the chair hit his head. Reports he has had a syncopal episode before and was admitted here. States last week he was admitted and required several units of blood. Denies any bleeding from any source today. Starting to feel better while sitting in the room. No chest pain. No other complaints. 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 Denies: chest pain, nausea/ vomiting Treatments Prior to Arrival: none - Related Data Home Medications Medication Instructions Recorded Confirmed Amlodipine Besylate 10 mg PO DAILY 09/01/16 08/07/17 Aspirin [Lo-Dose Aspirin EC] 162 mg PO DAILY 09/01/16 08/07/17 Finasteride [Proscar] 5 mg PO DAILY 09/01/16 08/07/17 Furosemide [Lasix] 20 mg PO Q48H PRN 09/01/16 08/07/17 Losartan Potassium [Cozaar] 100 mg PO DAILY 09/01/16 08/07/17 Multivit-Min/FA/Lycopen/Lutein 1 tab PO DAILY 09/01/16 08/07/17 [Centrum Silver Men Tablet] Potassium Chloride [Klor-Con 10] 40 meq PO DAILY 09/01/16 08/07/17 Pravastatin Sodium [Pravachol] 20 mg PO HS 09/01/16 08/07/17 Terazosin [Hytrin] 5 mg PO HS 09/01/16 08/07/17 Timolol Maleate 0.5% 1 drop RIGHT EYE BID 07/27/17 08/07/17 Dexamethasone [Decadron] 8 mg PO BID 08/07/17 Polyethylene Glycol 3350 17 gm PO DAILY PRN 08/07/17 08/07/17 [Polyethylene Glycol 3350] Previous Rx's Medication Instructions Recorded Gabapentin [Neurontin] 300 mg PO TID #90 capsule 04/18/17 Vitamin E Acid Succinate [Vitamin 400 units PO BID #60 tab 04/18/17 E] predniSONE [PredniSONE] 5 mg PO BIDWM #60 tablet 06/26/17 Omeprazole [PriLOSEC] 20 mg PO BIDAC #30 cap 07/10/17 Ondansetron HCl [Zofran] 4 mg PO Q4H PRN #30 tablet 07/10/17 Prochlorperazine Maleate 10 mg PO Q6H PRN #30 tablet 07/10/17 [Compazine] Dronabinol [Marinol] 5 mg PO BIDLS #60 capsule 07/29/17 Allergies Allergy/AdvReac Type Severity Reaction Status Date / Time terbinafine [From Lamisil] Allergy Rash Verified 08/01/17 10:02 All systems ED: reviewed and negative except as stated. Constitutional: Denies: fever Cardiovascular: Denies: chest pain Respiratory: Reports: dyspnea. Denies: cough Gastrointestinal: Denies: abdominal pain, nausea, vomiting, diarrhea Neurological: Denies: numbness, paresthesias Past Medical History - Past Medical History Attestation: Yes The following information was validated with the patient. Source: patient Medical history: Reports: hypertension, cancer Psychiatric history: Reports: no psych history - Social History Smoking Status: Former smoker Smokeless Tobacco Status: No Alcohol use: Reports: occasionally Drug use: Reports: none Physical Exam - General Limitations: no limitations General appearance: alert, in no apparent distress - Head Head exam: atraumatic, normocephalic - Eye Eye exam: Present: normal appearance - ENT ENT exam: normal exam - Neck Neck exam: Present: normal inspection, full ROM - Chest Chest inspection: Present: normal inspection - Respiratory Respiratory exam: Present: normal lung sounds bilaterally - Cardiovascular Cardiovascular exam: Present: tachycardia, irregular rhythm, normal heart sounds - Abdominal Exam Abdominal exam: Present: soft, Non-Tender. Absent: tenderness - Extremities Exam Extremities exam: Present: normal inspection, full ROM - Expanded Upper Extremity Exam Shoulder exam: Present: normal inspection, full ROM Arm exam: Present: normal inspection, full ROM Elbow exam: Present: normal inspection, full ROM Forearm/Wrist exam: Present: normal inspection, full ROM Hand exam: Present: normal inspection, full ROM - Expanded Lower Extremity Exam Hip/Pelvis exam: Present: normal inspection, full ROM Upper leg exam: Present: normal inspection, full ROM Knee exam: Present: normal inspection, full ROM Lower leg exam: Present: normal inspection, full ROM Ankle exam: Present: normal inspection, full ROM Foot/toe exam: Present: normal inspection, full ROM - Neurological Exam Neurological exam: Present: alert, other (GCS 15. Nonfocal neurologic exam. Moves all extremities equally.) - Skin Skin exam: Present: warm, dry, intact Course Course Narrative: Patient seen and examined. Vital signs reviewed. Noted be tachycardic here with stable blood pressure. We will obtain EKG, chest x-ray as well as labs including troponin. Patient given a liter of IV fluids. - Reevaluation(s) Reevaluation #1: Patient remains tachycardic. We will give an additional liter of fluids. Reevaluation #2: Discussed results of imaging and labs with the patient. - Consultations Consultation #1: I spoke with the on-call surgeon for endoscopy Dr. Donohue. Discussed the patient' s history labs and interventions to date. He is in agreement to see the patient in consultation. Patient will be admitted to the hospitalist service. Vital Signs Temperature 98.4 F 08/07/17 18:40 Pulse Rate 130 08/07/17 18:40 Respiratory Rate 18 08/07/17 18:40 Blood Pressure 75/56 08/07/17 18:40 O2 Sat by Pulse Oximetry 98 08/07/17 18:40 Temperature 98.4 F 08/07/17 18:40 Pulse Rate 130 08/07/17 18:40 Respiratory Rate 18 08/07/17 18:40 Blood Pressure 75/56 08/07/17 18:40 O2 Sat by Pulse Oximetry 100 08/07/17 19:10 Oxygen Delivery Oxygen Delivery Nasal Cannula Medical Decision Making - MDM Narrative Medical decision making narrative: 87-year-old male history of prostate cancer presents to the ER due to a syncopal episode. Family reports that he has just finished using the bathroom. States that he did have a dark bowel movement. He reports this is been going on for a few weeks. He was here last week and received a transfusion. He is noted to be hypotensive and tachycardic upon arrival. Patient given IV fluids with improvement of his tachycardia and hypotension. Hemoglobin today is better than previously. Troponin is elevated at 0.04 in the setting of renal disease. He is chest pain-free. Patient given a liter of fluids. Admitted to the hospitalist service for syncopal episode, GI bleed, anemia. - Lab Data Lab results reviewed: Yes I reviewed the patient's lab results. Result diagrams: 08/07/17 19:00 08/07/17 19:00 Lab Results 08/07/17 08/07/17 08/07/17 Range/Units 19:00 19:00 19:00 WBC 2.5 L (4.3-11.1) K/mcL RBC 3.23 L (4.19-5.50) M/mcL Hgb 9.2 L (12.9-16.9) g/dL Hct 29.5 L (37.5-50.1) % MCV 91.3 (83.0-100.0) fL MCH 28.5 (28.0-33.3) pg MCHC 31.2 L (31.6-35.5) g/dL RDW 17.7 H (11.5-14.5) % Plt Count 255 (140-400) K/mcL MPV 9.2 L (9.4-12.4) fL Immature Gran % 0.8 (0-4) % Seg Neutrophils % 60.4 % Lymphocytes % 31.6 % Monocytes % 6.8 % Eosinophils % 0.0 % Basophils % 0.4 % Neutrophils # 1.5 L (1.6-8.9) K/mcL Lymphocytes # 0.8 (0.6-4.6) K/mcL Monocytes # 0.2 (0.0-1.3) K/mcL Eosinophils # 0.0 (0.0-0.6) K/mcL Basophils # 0.0 (0.0-0.2) K/mcL Nucleated RBCs/100 WBC 1.6 H (0) /100 WBC PT 16.1 H (9.4-12.1) Seconds INR 1.5 APTT 25.1 L (26.0-36.0) Seconds Sodium 141 (136-145) mEq/L Potassium 3.9 (3.5-5.1) mEq/L Chloride 110 H (98-107) mEq/L Carbon Dioxide 20 L (23-29) mEq/L BUN 45 H (8-23) mg/dL Creatinine 1.43 H (0.70-1.30) mg/dL Est GFR ( Amer) 57 L (> 60) Est GFR (Non-Af Amer) 47 L (> 60) BUN/Creatinine Ratio 31 H (6-26) Glucose 192 H (70-105) mg/dL Calculated Osmolality 309 H (280-300) Calcium 6.6 L (8.6-10.3) mg/dL Troponin I (< 0.04) ng/mL Blood Type Antibody Screen 08/07/17 08/07/17 Range/Units 19:00 19:00 WBC (4.3-11.1) K/mcL RBC (4.19-5.50) M/mcL Hgb (12.9-16.9) g/dL Hct (37.5-50.1) % MCV (83.0-100.0) fL MCH (28.0-33.3) pg MCHC (31.6-35.5) g/dL RDW (11.5-14.5) % Plt Count (140-400) K/mcL MPV (9.4-12.4) fL Immature Gran % (0-4) % Seg Neutrophils % % Lymphocytes % % Monocytes % % Eosinophils % % Basophils % % Neutrophils # (1.6-8.9) K/mcL Lymphocytes # (0.6-4.6) K/mcL Monocytes # (0.0-1.3) K/mcL Eosinophils # (0.0-0.6) K/mcL Basophils # (0.0-0.2) K/mcL Nucleated RBCs/100 WBC (0) /100 WBC PT (9.4-12.1) Seconds INR APTT (26.0-36.0) Seconds Sodium (136-145) mEq/L Potassium (3.5-5.1) mEq/L Chloride (98-107) mEq/L Carbon Dioxide (23-29) mEq/L BUN (8-23) mg/dL Creatinine (0.70-1.30) mg/dL Est GFR ( Amer) (> 60) Est GFR (Non-Af Amer) (> 60) BUN/Creatinine Ratio (6-26) Glucose (70-105) mg/dL Calculated Osmolality (280-300) Calcium (8.6-10.3) mg/dL Troponin I 0.04 H* (< 0.04) ng/mL Blood Type O POSITIVE Antibody Screen NEGATIVE - Radiology Data Radiology results reviewed: Yes I reviewed the patient's radiology results. Chest X-Ray 08/07/17 18:40 IMPRESSION: No acute cardiopulmonary findings. D/ / Sharee Navarro MD / Sharee Navarro MD Interpreting Provider: Sharee Navarro MD - EKG Data EKG #1 EKG attestation: Yes I reviewed and interpreted this EKG. EKG results narrative: EKG demonstrates an ectopic atrial rhythm with PVC with a rate of 127. Normal axis. Normal intervals. Normal R-wave progression. No ST elevations or depressions. No acute ischemic findings. No significant changes from previous EKG dated 07/27/17. S.B.AGino - Rolando.Ky.AGino Situation: Demographics, MOA Background: Presenting Complaint, Relevant PMH, Meds, & Allergies Assessment: Vital Signs, Course and respsone to treatment, Patient/Family Expectation, Pertinant Lab Results Recommendation: Barrier(s) to disposition, Recommendation based on pending studies, treatments, or consults S.B.A.Krys Report Given to: Dr. Jayde Blair Repor Time: 21:02
[2017-08-07 19:11] LABS: Basophils % 0.4 %; Hematocrit 29.5 % (37.5-50.1); Hemoglobin 9.2 g/dL (12.9-16.9); Immature Granulocytes % 0.8 % (0-4); Lymphocytes # 0.8 K/mcL (0.6-4.6); Lymphocytes % 31.6 %; Mean Corpuscular HGB Conc 31.2 g/dL (31.6-35.5); Mean Corpuscular Hemoglobin 28.5 pg (28.0-33.3); Mean Corpuscular Volume 91.3 fL (83.0-100.0); Mean Platelet Volume 9.2 fL (9.4-12.4); Monocytes # 0.2 K/mcL (0.0-1.3); Monocytes % 6.8 %; Neutrophils # 1.5 K/mcL (1.6-8.9); Nucleated Red Blood Cells 1.6 /100 WBC (0); Platelet Count 255 K/mcL (140-400); Red Blood Count 3.23 M/mcL (4.19-5.50); Red Cell Distribution Width 17.7 % (11.5-14.5); Segmented Neutrophils % 60.4 %
[2017-08-07 19:22] LABS: INR 1.5; Prothrombin Time 16.1 Seconds (9.4-12.1)
[2017-08-07 19:23] LABS: Calcium 6.6 mg/dL (8.6-10.3); Potassium 3.9 mEq/L (3.5-5.1)
[2017-08-07 19:24] LABS: Activated Partial Thrombo Time 25.1 Seconds (26.0-36.0)
[2017-08-07] MEDS ORDERED: Pantoprazole 80 MG in Water for inj. (sterile) 10 ML IVP ONE (20:48)
[2017-08-08] MEDS ORDERED: Naloxone 0.4 MG/ML INJ IVP PRN (00:12)
[2017-08-08] MEDS ORDERED: Ondansetron 4 MG/2 ML VIAL IVP PRN (00:12)
[2017-08-08] MEDS ORDERED: Acetaminophen 325 MG TABLET PO PRN (00:12)
[2017-08-08] MEDS ORDERED: Furosemide 20 MG TABLET PO PRN (00:17)
[2017-08-08] MEDS: 0.9 % Sodium Chloride 1,000 ML IVC SCH ×2 (01:27→18:14)
[2017-08-08 01:56] LABS: Basophils % 0.7 %; Hematocrit 24.3 % (37.5-50.1); Immature Granulocytes % 6.3 % (0-4); Immature Platelets 1.4 % (1.1-6.1); Lymphocytes # 0.8 K/mcL (0.6-4.6); Lymphocytes % 30.6 %; Mean Corpuscular HGB Conc 31.3 g/dL (31.6-35.5); Mean Corpuscular Hemoglobin 28.4 pg (28.0-33.3); Mean Corpuscular Volume 90.7 fL (83.0-100.0); Mean Platelet Volume 9.2 fL (9.4-12.4); Monocytes # 0.2 K/mcL (0.0-1.3); Neutrophils # 1.5 K/mcL (1.6-8.9); Nucleated Red Blood Cells 0.7 /100 WBC (0); Platelet Count 225 K/mcL (140-400); Red Blood Count 2.68 M/mcL (4.19-5.50); Red Cell Distribution Width 17.7 % (11.5-14.5); Segmented Neutrophils % 55.4 %
[2017-08-08 02:01] LABS: Hemoglobin 7.6 g/dL (12.9-16.9)
[2017-08-08 02:30] LABS: Anisocytosis 2+ (Not Present); Platelet Estimate Normal (Normal)
[2017-08-08 02:43] LABS: BUN/Creatinine Ratio 38 (6-26); Blood Urea Nitrogen 48 mg/dL (8-23); Calcium 6.3 mg/dL (8.6-10.3); Carbon Dioxide 20 mEq/L (23-29); Chloride 113 mEq/L (98-107); Glucose 140 mg/dL (70-105); Magnesium 1.8 mg/dL (1.6-2.6); Osmolality,Calculated 307 (280-300); Potassium 3.7 mEq/L (3.5-5.1); Sodium 141 mEq/L (136-145); eGFR For African Americans > 60 (> 60); eGFR For Non-African Americans 55 (> 60)
--- NOTE | 2017-08-08 03:45 | Internal Med History&Physical ---
Date of Encounter: 08/07/17 Time of Encounter: 23:30 Assessment and Plan (1) Tachycardia Current visit: Yes Status: Acute EKG reviewed. Not sure A Fib or Sinus with multiple PACs and PVCs. Pt said he has "irregular heart beats" but not sure if it is A Fib. He is not on any anticoagulation except ASA at home. - Contnuous cardiac monitoring. - Metoprolol 25 mg po bid started - Consult cardio for further evaluation. (2) GI bleed Current visit: Yes Status: Acute Pt reported blood in stool. He has anemia but probably due to chemo therapy as well. - Closely monitor Vitals and H/H - Place pt on clear liquid diet. - IV PPI q12hrs - Surgical consult called by ER. - Track FOBT Qualifiers: GI bleed type/associated pathology: unspecified gastrointestinal hemorrhage type Qualified Code(s): K92.2 - Gastrointestinal hemorrhage, unspecified (3) Syncope Current visit: Yes Status: Acute Etiology is undetermined. Pt has recent diarrhea, possibly has hypovolemia. However, need to r/o cardio-neuro etiology. - Place pt on continuous cardiac monitoring. - Echo and duplex carotid. - Orthstatic vitals. Qualifiers: Syncope type: unspecified Qualified Code(s): R55 - Syncope and collapse (4) DVT prophylaxis Current visit: No Status: Acute EPCD, no AC b/o suspected GI bleed (5) CKD (chronic kidney disease) stage 3, GFR 30-59 ml/min Current visit: No Status: Chronic Cr level is at baseline. (6) Prostate cancer Current visit: No Status: Chronic On chemo therapy, f/u with oncology as outpatient. Internal Medicine - H&P: HPI Chief complaint: Syncope Admitted From: Home Plans for Post Hospital Care: Home History of present illness: Mr. Monroe is a 87 year old male with hx of prostate cancer on chemo therapy, and "irregular heart beating" present to ER for syncope. Pt said syncope occurred this evening, witnessed by his . Lasted about 1-2 minutes, no shaking. Pt denies fall or injury. He denies tongue bite or urinary/fecal incontinence. Pt denies feeling of hungery or palpitation prior to syncope. Pt had diarrhea in last 3 days, watery, about 2-3 BMs a day. Pt has no BM today. However, his family (not at bedside) told him they saw dark blood in his stool yesterday. Pt said he didn't directly see the blood. Pt had recent blood transfusion in cancer center. Past Med Surg Social Fam HX - Past Medical History Medical history: hypertension, cancer Psychiatric history: no psych history - Social History Smoking Status: Former smoker Smokeless Tobacco Status: No Alcohol use: none Drug use: none - Family History Mother Living Status: Still Living Hx Family Endocrine Disorder: Yes (DM) Internal Medicine - H&P: Meds Amlodipine Besylate 10 mg PO DAILY 09/01/16 [History] Aspirin [Lo-Dose Aspirin EC] 162 mg PO DAILY 09/01/16 [History] Finasteride [Proscar] 5 mg PO DAILY 09/01/16 [History] Furosemide [Lasix] 20 mg PO Q48H PRN 09/01/16 [History] Losartan Potassium [Cozaar] 100 mg PO DAILY 09/01/16 [History] Multivit-Min/FA/Lycopen/Lutein [Centrum Silver Men Tablet] 1 tab PO DAILY [History] Potassium Chloride [Klor-Con 10] 40 meq PO DAILY 09/01/16 [History] Pravastatin Sodium [Pravachol] 20 mg PO HS 09/01/16 [History] Terazosin [Hytrin] 5 mg PO HS 09/01/16 [History] Gabapentin [Neurontin] 300 mg PO TID #90 capsule 04/18/17 [Rx] Vitamin E Acid Succinate [Vitamin E] 400 units PO BID #60 tab 04/18/17 [Rx] predniSONE [PredniSONE] 5 mg PO BIDWM #60 tablet 06/26/17 [Rx] Omeprazole [PriLOSEC] 20 mg PO BIDAC #30 cap 07/10/17 [Rx] Ondansetron HCl [Zofran] 4 mg PO Q4H PRN #30 tablet 07/10/17 [Rx] Prochlorperazine Maleate [Compazine] 10 mg PO Q6H PRN #30 tablet 07/10/17 [Rx] Timolol Maleate 0.5% 1 drop RIGHT EYE BID 07/27/17 [History] Dronabinol [Marinol] 5 mg PO BIDLS #60 capsule 07/29/17 [Rx] Dexamethasone [Decadron] 8 mg PO BID 08/07/17 [History] Polyethylene Glycol 3350 [Polyethylene Glycol 3350] 17 gm PO DAILY PRN 08/07/17 [History] 3 Allergy/AdvReac Type Severity Reaction Status Date / Time terbinafine [From Lamisil] Allergy Rash Verified 08/01/17 10:02 All Systems PM: A 10-system review of systems was performed and is negative for pertinent findings except as documented above in the HPI. - Constitutional Vitals: Temp Pulse Resp BP Pulse Ox 98.4 F 89 16 109/60 99 08/08/17 00:35 08/08/17 00:35 08/08/17 00:35 08/08/17 00:35 08/08/17 00:35 General appearance: Present: A&O X 3, no acute distress, answers questions appropriately - Head Head exam: Present: atraumatic, normocephalic - Eye Eye exam: Present: PERRL, conjuntiva pink, sclera anicteric Pupils: Present: PERRL - Neck Neck exam general surgery: Present: supple, trachea midline. Absent: lymphadenopathy - Respiratory Respiratory exam: Present: CTAB. Absent: accessory muscle use, rales, rhonchi, wheezes - Cardiovascular Cardiovascular exam: Present: RRR, +S1, +S2. Absent: diastolic murmur, gallop, rubs, systolic murmur - GI/Abdominal GI/Abdominal exam: Present: normal bowel sounds, soft, no peritoneal signs. Absent: distended, tenderness - Extremities Exam Extremities exam: Present: warm, radial pulses palpable and symmetrical. Absent : calf tenderness, cyanotic, pedal edema - Neurological Exam Neurological exam: Present: CN II-XII intact, oriented X3, no focal deficits. Absent: pronater drift, facial droop, speech deficit - Skin Skin exam: Present: dry, intact Internal Med - H&P Results - Labs CBC & Chem 7: 08/08/17 01:38 08/08/17 01:38 Labs: Short CBC 08/08/17 Range/Units 01:38 WBC 2.7 L (4.3-11.1) K/mcL Hgb 7.6 L D (12.9-16.9) g/dL Hct 24.3 L (37.5-50.1) % Plt Count 225 (140-400) K/mcL Neutrophils # 1.5 L (1.6-8.9) K/mcL BMP 08/08/17 01:38 Sodium 141 Potassium 3.7 Chloride 113 H Carbon Dioxide 20 L BUN 48 H Creatinine 1.25 Glucose 140 H Calcium 6.3 L Cardiac Enzymes 08/08/17 Range/Units 01:38 Troponin I 0.03 (< 0.04) ng/mL - EKG Data -: EKG Interpreted by Myself (Undetermined rhythm (A Fib vs Sinus with multiple PACs and PVCs)) Rate: tachycardia
[2017-08-08] MEDS: Pantoprazole 40 MG VIAL IVP SCH ×2 (05:44→16:59)
--- NOTE | 2017-08-08 08:29 | Cardiology Consult Note ---
Date of Encounter: 08/08/17 Time of Encounter: 08:29 Assessment and Plan (1) Syncope Current Visit: Yes Status: Acute Patient stress echocardiogram on 09/11/2016 demonstrated LVEF 60-65%. LVEF 60-65%. Normal left ventricular structure and function. Stress Echocardiogram Normal sinus rhythm at rest. Occasional PACs noted prior to exam beginning. Stress ECG is negative for ischemia. The patient demonstrated a normal blood pressure response. Occasional PACs noted during and post exercise. Two PVCs seen during recovery. The exercise capacity was fair. No chest pain during stress procedure. Appropriate increase EF with stress. No segmental wall motion abnormalities that would suggest ischemia. Carotid duplex on 09/12/2016 bilateral carotid systems essential normal. 08/08/2017- Patient with previous work up for syncope essentially negative. -Patient with 3 day history of diarrhea and multi-drug therapy for hypertension. Fluid status could be contributing factor. -No history of CAD. Will consider holding losartan and amlodipine, while titrating metoprolol to appropriate levels to see how blood pressure tolerates. -Will discuss with Dr. Ibrahim if repeat echo is warranted. Qualifiers: Syncope type: unspecified Qualified Code(s): R55 - Syncope and collapse (2) Premature atrial complex Current Visit: Yes Status: Acute EKG from 07-24-[address] Ibrahim. Less likely atrial fibrillation with RVR, more likely ectopic beats with PACs and PVCs noted. -Patient states his ectopy and tachycardia are asymptomatic. -Continue metoprolol 25mg BID -Tachycardia resolved -FU as an outpatient (3) PVC's (premature ventricular contractions) Current Visit: Yes Status: Acute Continue management as outlined above per ectopy. Discussion w patient/family: The assessment and plan as outlined above was discussed with the patient and/or family members who expressed understanding and agreement. All questions were answered. Thank you for involving us in the care of your patient. Please call with any questions. History of Present Illness Consult date: 08/08/17 Requesting physician: Matthew Tanner Consult reason: Tachycardia, PACs and PVCs on EKG Chief complaint: Synopal episode History of present illness: Mr. Monroe is a 87 year old male with PMHx of prostate cancer on chemo therapy , HTN and CKD stage 3 who presented to [facility] ED on 08/07/2017 with chief complaint of syncope. This was witnessed with duration of 1 to 2 minutes according to medical record. Patient was not seen exhibiting any overt signs of epileptic acitivity including shaking, loss of bladder or bowel continence, or post-ictal state. Patient did not sustain any injury during fall. Patient denies chest pain or pressure, nausea or diaphoresis prior to the event. He does report baseline shortness of breath. He also reports diarrhea for the previous 3 days which is dark in color.Patient does report having a history of "syncope" and "extra heart beats," but these extra heart beats are imperceptible to him. He states he has had these since he was a teenager. He describes them as stable and not troublesome to him. In regards to syncopal episodes, he reports feeling dizzy prior to episodes of syncope in the past. Patient is currently undergoing chemotherapy with recent blood transfusion secondary to symptomatic anemia. This morning, he is resting comfortably, but states he is very tired. Also of note, he quit smoking 8 months ago. Past Med Surg Social Fam HX - Past Medical History Medical history: hypertension, cancer Psychiatric history: no psych history - Social History Smoking Status: Former smoker Smokeless Tobacco Status: No Alcohol use: none Drug use: none - Family History Mother Living Status: Still Living Hx Family Endocrine Disorder: Yes (DM) Medications and Allergies Amlodipine Besylate 10 mg PO DAILY 09/01/16 [History] Aspirin [Lo-Dose Aspirin EC] 162 mg PO DAILY 09/01/16 [History] Finasteride [Proscar] 5 mg PO DAILY 09/01/16 [History] Furosemide [Lasix] 20 mg PO Q48H PRN 09/01/16 [History] Losartan Potassium [Cozaar] 100 mg PO DAILY 09/01/16 [History] Multivit-Min/FA/Lycopen/Lutein [Centrum Silver Men Tablet] 1 tab PO DAILY [History] Potassium Chloride [Klor-Con 10] 40 meq PO DAILY 09/01/16 [History] Pravastatin Sodium [Pravachol] 20 mg PO HS 09/01/16 [History] Terazosin [Hytrin] 5 mg PO HS 09/01/16 [History] Gabapentin [Neurontin] 300 mg PO TID #90 capsule 04/18/17 [Rx] Vitamin E Acid Succinate [Vitamin E] 400 units PO BID #60 tab 04/18/17 [Rx] predniSONE [PredniSONE] 5 mg PO BIDWM #60 tablet 06/26/17 [Rx] Omeprazole [PriLOSEC] 20 mg PO BIDAC #30 cap 07/10/17 [Rx] Ondansetron HCl [Zofran] 4 mg PO Q4H PRN #30 tablet 07/10/17 [Rx] Prochlorperazine Maleate [Compazine] 10 mg PO Q6H PRN #30 tablet 07/10/17 [Rx] Timolol Maleate 0.5% 1 drop RIGHT EYE BID 07/27/17 [History] Dronabinol [Marinol] 5 mg PO BIDLS #60 capsule 07/29/17 [Rx] Dexamethasone [Decadron] 8 mg PO BID 08/07/17 [History] Polyethylene Glycol 3350 [Polyethylene Glycol 3350] 17 gm PO DAILY PRN 08/07/17 [History] 3 Allergy/AdvReac Type Severity Reaction Status Date / Time terbinafine [From Lamisil] Allergy Rash Verified 08/01/17 10:02 All Systems Review: A 10-system review of systems was performed and is negative for pertinent findings except as documented above in the HPI. - Constitutional Constitutional: fatigue, weakness, no fever(s), no frequent falls, no headache(s ), no night sweats - EENT Eyes: no loss of vision - Cardiovascular Cardiovascular: irregular heart rhythm, palpitations, syncope, no chest pain at rest, no chest pain with exertion, no diaphoresis, no dyspnea on exertion, no leg edema - Respiratory Respiratory: dyspnea, no cough - Gastrointestinal Gastrointestinal: diarrhea, no abdominal pain, no constipation, no hematemesis, no nausea - Neurological Neurological: no abnormal speech Physical Examination Vital Signs, Last 4 Hours Temp Pulse Resp BP Pulse Ox 08/08/17 07:30 99.2 F 76 17 93/63 99 08/08/17 05:30 98.2 F 83 16 97/65 100 General: Conversant, No Apparent Distress HEENT: Atraumatic, Mucus Membranes Moist Neck: No JVD, Normal carotid pulses Cardiac: Reg Rate and Rhythm, Normal S1 and S2, No Murmur Lungs: Other (mild crackles noted bilaterally) Neuro: Alert and responsive, No focal deficits noted Abdomen: Soft, Non-Tender Skin: No rashes noted on visualized skin Musculoskeletal: No Chest Wall Tenderness Extremities: No Clubbing, No Cyanosis, No Edema, Normal Pulses Results 08/08/17 01:38 08/08/17 01:38 Lab Results 08/08/17 08/08/17 08/08/17 01:38 01:38 01:38 WBC 2.7 L Hgb 7.6 L D Hct 24.3 L Plt Count 225 Sodium 141 Potassium 3.7 Chloride 113 H Carbon Dioxide 20 L BUN 48 H Creatinine 1.25 Glucose 140 H Calcium 6.3 L Magnesium 1.8 Troponin I 0.03 TSH 08/08/17 08/08/17 01:38 07:15 WBC Hgb Hct Plt Count Sodium Potassium Chloride Carbon Dioxide BUN Creatinine Glucose Calcium Magnesium Troponin I 0.03 TSH 1.627 Consult Discharge Plan - Plan Referrals: Jimmy Crawford MD [Primary Care Provider] -
[2017-08-08] MEDS ORDERED: amLODIPine 5 MG TABLET PO SCH (09:00)
[2017-08-08] MEDS ORDERED: Aspirin Enteric Coated 81 MG Tablet PO SCH (09:00)
[2017-08-08] MEDS: Multivit/Ca/Min/Fe/FA 1 TAB TABLET PO SCH (09:17)
[2017-08-08] MEDS: predniSONE 5 MG TABLET PO SCH ×2 (09:18→16:59)
[2017-08-08] MEDS: Finasteride 5 MG TABLET PO SCH (09:18)
[2017-08-08] MEDS: Gabapentin 300 MG CAPSULE PO SCH ×3 (09:18→21:25)
--- NOTE | 2017-08-08 11:13 | Electrocardiograph Report ---
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
[2017-08-08] MEDS ORDERED: 0.9 % Sodium Chloride 500 ML ONE (12:17)
--- NOTE | 2017-08-08 13:15 | Internal Med Progress Note ---
<Marcelo Arredondo - Last Filed: 08/08/17 14:18> Date of Encounter: 08/08/17 Time of Encounter: 09:30 - Assessment and plan (1) Syncope Current Visit: Yes Status: Acute Assessment and plan: 87M with PMHx prostatic cancer with metastasis on chemo and recent transfusion at [facility] presented with syncopal episode. Patient has had multiple episodes of syncope in the past. Multiple episodes of dark tarry stools. FOBT + . Last colonoscopy 2006. Hemoglobin today is 7.6 and downtrending. Syncope is likely due to anemia secondary to acute GI bleed. Endoscopy scheduled with Dr. Donohue tomorrow. NPO after midnight. Transfuse 1 unit of blood product and recheck H/H at 1600. Qualifiers: Syncope type: unspecified Qualified Code(s): R55 - Syncope and collapse (2) GI bleed Current Visit: Yes Status: Acute Assessment and plan: Patient's presenting symptoms and lab work suggest acute bleed, likely of GI source. Endoscopy with Dr. Donohue tomorrow. NPO after midnight. Continue IVF. 1 unit of blood product transfusion and recheck H/H at 1600. Qualifiers: GI bleed type/associated pathology: unspecified gastrointestinal hemorrhage type Qualified Code(s): K92.2 - Gastrointestinal hemorrhage, unspecified (3) Tachycardia Current Visit: Yes Status: Acute Assessment and plan: Resolved. EKG reviewed. Patient's heart rate currently stable and well controlled. He denies palpitations or episodes of dizziness since admission. Cardiology impression: No evidence of AF. Recommend continue with IVF, low dose BB, start aspirin 81mg when Hb improves. Echocardiogram demonstrates EF 65% with normal wall motion and mild left ventricular diastolic dysfunction. Tachycardia and syncope likely secondary to GI bleed. Continue with Metoprolol 25mg PO BID. No further cardiac intervention needed at this time. (4) CKD (chronic kidney disease) stage 3, GFR 30-59 ml/min Current Visit: No Status: Chronic Assessment and plan: Cr stable and at baseline (5) Prostate cancer Current Visit: No Status: Chronic Assessment and plan: Continue chemotherapy. Follow-up with oncology outpatient. - Time Spent With Patient 25 - 35 minutes - Subjective Interval history: 87M with PMHx prostatic cancer with metastasis on chemo and recent transfusion at cancer center presented with syncopal episode. Patient has had multiple episodes of syncope in the past with prodrome of dizziness. FOBT +. Last colonoscopy was in 2006 (negative). Received blood transfusion recently due to decreasing Hb. Patient also reports multiple episodes of dark tarry stool throughout last year. He admits to poor appetite for the last few days and diarrhea. Denies any other source of bleeding. Denies dizziness, shortness of breath, f/c/n/v, blurry vision, cough, weakness, dysuria, hematuria. No history of peptic ulcer disease. - Constitutional Vitals: Temp Pulse Resp BP Pulse Ox 98.1 F 83 20 100/67 96 08/08/17 13:06 08/08/17 13:06 08/08/17 13:06 08/08/17 13:06 08/08/17 13:06 General appearance: Present: A&O X 3, no acute distress, answers questions appropriately - Head Head exam: Present: atraumatic, normocephalic - Eye Eye exam: Present: normal appearance - Neck Neck exam general surgery: Present: full ROM, supple, trachea midline. Absent: lymphadenopathy, tenderness - Respiratory Respiratory exam: Present: CTAB. Absent: accessory muscle use, rales, respiratory distress, wheezes, tachypnea - Cardiovascular Cardiovascular exam: Present: RRR. Absent: gallop, rubs, systolic murmur Additional comments: palpable thrill noted. - GI/Abdominal GI/Abdominal exam: Present: normal bowel sounds, soft, no peritoneal signs. Absent: bruit, guarding - Extremities Exam Extremities exam: Present: full ROM, normal inspection, warm, radial pulses palpable and symmetrical. Absent: pedal edema - Neurological Exam Neurological exam: Present: alert, CN II-XII intact, oriented X3, no focal deficits. Absent: facial droop, speech deficit - Skin Skin exam: Absent: dry, intact, rash Internal Medicine: Result - Labs CBC & Chem 7: 08/08/17 01:38 08/08/17 01:38 - ABG Interpretation ABG results: PT/INR, D-dimer PT 16.1 Seconds (9.4-12.1) H 08/07/17 19:00 Consult Discharge Plan - Plan Referrals: Jimmy Crawford MD [Primary Care Provider] - <Jono Corley T - Last Filed: 08/08/17 14:26> Date of Encounter: 08/08/17 - Constitutional Vitals: Temp Pulse Resp BP Pulse Ox 98.8 F 85 20 100/63 98 08/08/17 13:20 08/08/17 13:20 08/08/17 13:20 08/08/17 13:20 08/08/17 13:20 Internal Medicine: Result - Labs CBC & Chem 7: 08/08/17 01:38 08/08/17 01:38 - ABG Interpretation ABG results: PT/INR, D-dimer PT 16.1 Seconds (9.4-12.1) H 08/07/17 19:00 - Attending Attestation Seen and evaluated at bedside Agree with plan as documented in the resident physician's document transfuse one unit of blood GI eval if surgery is not planning EGD NPO except meds Rest of care as in the resident physician's documentation
[2017-08-08] MEDS ORDERED: Polyethylene Glycol 3350 255 GM POWDER PO ONE (14:17)
--- NOTE | 2017-08-08 14:59 | General Surgery Consult Note ---
Date of Encounter: 08/08/17 Time of Encounter: 14:56 Assessment and Plan (1) GI bleed Current Visit: Yes Status: Acute 87M with LGIB and syncope; currently receiving a blood transfusion; - bowel prep - NPO at midnight - CLD today - consent for EGD/c-scopy - plan for procedures tomorrow morning Qualifiers: GI bleed type/associated pathology: unspecified gastrointestinal hemorrhage type Qualified Code(s): K92.2 - Gastrointestinal hemorrhage, unspecified History of Present Illness Consult date: 08/08/17 Reason for consult: other (melena) History of present illness: Mr. Monroe is a 87 year old male with hx of stage IV prostate cancer, currently on chemo (had 1/3 sessions) who has had a 4 week history of loose stools that were also described as dark, concerning for bloody bowel movements. The patient states that his last colonoscopy was about 5 years ago and was reportedly negative for any concerning findings. This episode of blood stools was especially concerning because he was also having syncopal episodes lasting 1 -2 minutes. he is currently receiving a blood transfusion; Past Med Surg Social Fam HX - Past Medical History Medical history: hypertension, cancer Psychiatric history: no psych history - Past Surgical History Surgical History: no surgical history - Social History Smoking Status: Former smoker Smokeless Tobacco Status: No Alcohol use: none Drug use: none - Family History Mother Living Status: Still Living Hx Family Endocrine Disorder: Yes (DM) Medications and Allergies Amlodipine Besylate 10 mg PO DAILY 09/01/16 [History] Aspirin [Lo-Dose Aspirin EC] 162 mg PO DAILY 09/01/16 [History] Finasteride [Proscar] 5 mg PO DAILY 09/01/16 [History] Furosemide [Lasix] 20 mg PO Q48H PRN 09/01/16 [History] Losartan Potassium [Cozaar] 100 mg PO DAILY 09/01/16 [History] Multivit-Min/FA/Lycopen/Lutein [Centrum Silver Men Tablet] 1 tab PO DAILY [History] Potassium Chloride [Klor-Con 10] 40 meq PO DAILY 09/01/16 [History] Pravastatin Sodium [Pravachol] 20 mg PO HS 09/01/16 [History] Terazosin [Hytrin] 5 mg PO HS 09/01/16 [History] Gabapentin [Neurontin] 300 mg PO TID #90 capsule 04/18/17 [Rx] Vitamin E Acid Succinate [Vitamin E] 400 units PO BID #60 tab 04/18/17 [Rx] predniSONE [PredniSONE] 5 mg PO BIDWM #60 tablet 06/26/17 [Rx] Omeprazole [PriLOSEC] 20 mg PO BIDAC #30 cap 07/10/17 [Rx] Ondansetron HCl [Zofran] 4 mg PO Q4H PRN #30 tablet 07/10/17 [Rx] Prochlorperazine Maleate [Compazine] 10 mg PO Q6H PRN #30 tablet 07/10/17 [Rx] Timolol Maleate 0.5% 1 drop RIGHT EYE BID 07/27/17 [History] Dronabinol [Marinol] 5 mg PO BIDLS #60 capsule 07/29/17 [Rx] Dexamethasone [Decadron] 8 mg PO BID 08/07/17 [History] Polyethylene Glycol 3350 [Polyethylene Glycol 3350] 17 gm PO DAILY PRN 08/07/17 [History] 3 Allergy/AdvReac Type Severity Reaction Status Date / Time terbinafine [From Lamisil] Allergy Rash Verified 08/01/17 10:02 Review of Systems All systems PM: A 10-system review of systems was performed and is negative for pertinent findings except as documented above in the HPI. General Surgery Exam Initial Vital Signs Temp Pulse Resp BP Pulse Ox 98.4 F 130 18 75/56 98 08/07/17 18:40 08/07/17 18:40 08/07/17 18:40 08/07/17 18:40 08/07/17 18:40 - General physical appearance well developed - Eyes normal ocular movement - ENT normocephalic - Neck no masses - Respiratory normal expansion, normal respiratory effort - Cardiovascular Cardiovascular exam: Present: RRR - Abdomen Abdomen general surgery: Present: soft, non tender - Integumentary Integumentary general surgery: Present: warm and dry - Neurologic Present: CN 2-12 grossly intact - Psychiatric Psychiatric general surgery: Present: A&Ox3 Exam Initial Vital Signs Temp Pulse Resp BP Pulse Ox 98.4 F 130 18 75/56 98 08/07/17 18:40 08/07/17 18:40 08/07/17 18:40 08/07/17 18:40 08/07/17 18:40 Results - Labs 08/08/17 01:38 08/08/17 01:38 Abnormal lab results WBC 2.7 K/mcL (4.3-11.1) L 08/08/17 01:38 RBC 2.68 M/mcL (4.19-5.50) L 08/08/17 01:38 Hgb 7.6 g/dL (12.9-16.9) L D 08/08/17 01:38 Hct 24.3 % (37.5-50.1) L 08/08/17 01:38 MCHC 31.3 g/dL (31.6-35.5) L 08/08/17 01:38 RDW 17.7 % (11.5-14.5) H 08/08/17 01:38 MPV 9.2 fL (9.4-12.4) L 08/08/17 01:38 Immature Gran % 6.3 % (0-4) H 08/08/17 01:38 Neutrophils # 1.5 K/mcL (1.6-8.9) L 08/08/17 01:38 Nucleated RBCs/100 WBC 0.7 /100 WBC (0) H 08/08/17 01:38 Anisocytosis 2+ (Not Present) A 08/08/17 01:38 PT 16.1 Seconds (9.4-12.1) H 08/07/17 19:00 APTT 25.1 Seconds (26.0-36.0) L 08/07/17 19:00 Chloride 113 mEq/L (98-107) H 08/08/17 01:38 Carbon Dioxide 20 mEq/L (23-29) L 08/08/17 01:38 BUN 48 mg/dL (8-23) H 08/08/17 01:38 Est GFR (Non-Af Amer) 55 (> 60) L 08/08/17 01:38 BUN/Creatinine Ratio 38 (6-26) H 08/08/17 01:38 Glucose 140 mg/dL (70-105) H 08/08/17 01:38 Calculated Osmolality 307 (280-300) H 08/08/17 01:38 Calcium 6.3 mg/dL (8.6-10.3) L 08/08/17 01:38 Stool Occult Blood Positive (Negative) A 08/08/17 05:30 All other labs normal. Consult Discharge Plan - Plan Referrals: Jimmy Crawford MD [Primary Care Provider] -
[2017-08-08 17:37] LABS: Hematocrit 27.3 % (37.5-50.1); Hemoglobin 8.7 g/dL (12.9-16.9)
[2017-08-09] MEDS: Pantoprazole 40 MG VIAL IVP SCH ×2 (05:44→17:38)
[2017-08-09] MEDS ORDERED: *HR* Midazolam HCl 5 MG/5 ML VIAL IVP ONE ×2 (07:42→07:54)
[2017-08-09] MEDS ORDERED: *HR* FentaNYL (PF) 100 MCG/2 ML VIAL ONE (07:42)
[2017-08-09] MEDS ORDERED: *HR* FentaNYL (PF) 100 MCG/2 ML VIAL IVP ONE (07:54)
[2017-08-09] MEDS ORDERED: *HR* Promethazine 25 MG/ML VIAL IVP ONE (07:54)
--- NOTE | 2017-08-09 07:56 | Pre-Sedation Evaluation ---
Pre-sedation evaluation - Pre-sedation checklist Date of procedure: 08/09/17 Procedure: egd, c-scopy Recent Vitals: Last Vital Signs Temp 98.0 F 08/09/17 07:48 Pulse 98 08/09/17 07:48 Resp 16 08/09/17 07:48 BP 97/60 08/09/17 07:48 Pulse Ox 96 08/09/17 07:48 H&P (including ROS) documented in medical record: Yes Previous reaction to sedatives/anesthetics: No Dietary Status: NPO after Midnight ASA Classification *see protocol: CLASS III-Severe systemic disease Plan of Care: Pt appropriate candidate for procedure/moderate/conscious sedation , Risks/benefits of procedure/sedation discussed w/ patient/family, If not NPO; Risk of intake outweiged by necessity to perform procedure
[2017-08-09] MEDS ORDERED: 0.9 % Sodium Chloride 500 ML IVC ONE (08:34)
[2017-08-09 08:38] LABS: Hematocrit 24.1 % (37.5-50.1); Hemoglobin 7.7 g/dL (12.9-16.9); Mean Corpuscular Hemoglobin 29.1 pg (28.0-33.3); Mean Corpuscular Volume 90.9 fL (83.0-100.0); Mean Platelet Volume 10.9 fL (9.4-12.4); Platelet Count 172 K/mcL (140-400); Red Blood Count 2.65 M/mcL (4.19-5.50)
--- NOTE | 2017-08-09 08:38 | Internal Med Progress Note ---
<Harshad Tanner - Last Filed: 08/09/17 14:36> Date of Encounter: 08/09/17 Time of Encounter: 08:38 - Assessment and plan (1) GI bleed Current Visit: Yes Status: Acute Assessment and plan: Surgery performed both colonoscopy and upper endoscopy today Nonbleeding duodenal ulcer was noted in EGD and multiple polyps removed during colonoscopy Surgery recommended on keeping patient nothing by mouth until afternoon hemoglobin was stable We will continue on Prilosec 40 mg daily Hb did drop from 8.7 to 7.7 this morning but no signs of blood loss per RN Qualifiers: GI bleed type/associated pathology: unspecified gastrointestinal hemorrhage type Qualified Code(s): K92.2 - Gastrointestinal hemorrhage, unspecified (2) Syncope Current Visit: Yes Status: Acute Assessment and plan: Likely secondary to blood loss anemia Echocardiogram revealed EF of 65% with mild diastolic dysfunction Carotid Doppler preliminarily shows nonstenotic plaque bilaterally Qualifiers: Syncope type: unspecified Qualified Code(s): R55 - Syncope and collapse (3) Hypertension Current Visit: No Status: Chronic Assessment and plan: Blood pressures were borderline low this morning and his doses of antihypertensives were held He was given a fluid bolus and blood pressure did respond appropriately Qualifiers: Hypertension type: essential hypertension Qualified Code(s): I10 - Essential (primary) hypertension (4) CKD (chronic kidney disease) stage 3, GFR 30-59 ml/min Current Visit: No Status: Chronic Assessment and plan: Patient's creatinine is stable and at baseline Continue to monitor electrolytes, creatinine, and avoid nephrotoxic agents (5) Prostate cancer Current Visit: No Status: Chronic Assessment and plan: Patient does follow with [facility] Continue outpatient chemotherapy once stable for discharge (6) DVT prophylaxis Current Visit: No Status: Acute Assessment and plan: EPCDs in setting of GI bleed - Subjective Interval history: Pt seen and examined. He just returned from endoscopy and is somnolent but does respond to his name and answers questions appropriately. He denies being in any pain other than his butt. Denies issues with breathing, nausea, vomiting, abdominal pain. Per RN, no more bloody bowel movements. - Constitutional Vitals: Temp Pulse Resp BP Pulse Ox 98.0 F 113 16 80/48 98 08/09/17 07:48 08/09/17 08:32 08/09/17 08:32 08/09/17 08:32 08/09/17 08:32 General appearance: Present: cooperative, pleasant, no acute distress, answers questions appropriately - Head Head exam: Present: atraumatic, normocephalic - Eye Eye exam: Present: PERRL, conjuntiva pink, sclera anicteric - Neck Neck exam general surgery: Present: supple, trachea midline. Absent: lymphadenopathy - Respiratory Respiratory exam: Present: CTAB. Absent: accessory muscle use, rales, rhonchi, wheezes - Cardiovascular Cardiovascular exam: Present: RRR, +S1, +S2. Absent: diastolic murmur, gallop, rubs, systolic murmur - GI/Abdominal GI/Abdominal exam: Present: normal bowel sounds, soft, no peritoneal signs. Absent: distended, tenderness - Extremities Exam Extremities exam: Present: warm, radial pulses palpable and symmetrical. Absent : calf tenderness, cyanotic, pedal edema - Neurological Exam Neurological exam: Present: no focal deficits. Absent: facial droop, speech deficit Additional comments: somnolent - Skin Skin exam: Present: dry, intact Internal Medicine: Result - Labs CBC & Chem 7: 08/09/17 12:54 08/08/17 01:38 Labs: Short CBC 08/08/17 Range/Units 17:12 Hgb 8.7 L (12.9-16.9) g/dL Hct 27.3 L (37.5-50.1) % - ABG Interpretation ABG results: PT/INR, D-dimer PT 16.1 Seconds (9.4-12.1) H 08/07/17 19:00 Consult Discharge Plan - Plan Referrals: Jimmy Crawford MD [Primary Care Provider] - (web request 08/08/2016) <Eulogio Davidson - Last Filed: 08/09/17 17:51> Date of Encounter: 08/09/17 - Constitutional Vitals: Temp Pulse Resp BP Pulse Ox 98.5 F 90 17 99/68 91 08/09/17 16:06 08/09/17 16:06 08/09/17 16:06 08/09/17 16:06 08/09/17 16:06 Internal Medicine: Result - Labs CBC & Chem 7: 08/09/17 12:54 08/09/17 14:32 Labs: Short CBC 08/09/17 08/09/17 Range/Units 06:58 12:54 WBC 3.4 L (4.3-11.1) K/mcL Hgb 7.7 L 7.4 L (12.9-16.9) g/dL Hct 24.1 L 23.2 L (37.5-50.1) % Plt Count 172 (140-400) K/mcL BMP 08/09/17 14:32 Sodium 139 Potassium 3.8 Chloride 116 H Carbon Dioxide 18 L BUN 42 H Creatinine 1.15 Glucose 93 Calcium 5.8 L* - ABG Interpretation ABG results: PT/INR, D-dimer PT 16.1 Seconds (9.4-12.1) H 08/07/17 19:00 - Attending Attestation I conducted a face to face diagnostic evaluation of this patient and my medical decision-making was reviewed with the Resident Physician, Dr Harshad Tanner. I agree with the documented findings, disposition and treatment plan as described except to the extent set forth below: His abdomen is soft and nontender. Heart is regular. Plan continue with Protonix IV every 12 hours. Check hemoglobin and hematocrit every 12 hours. Transfuse if hemoglobin below 7, hemodynamic instability or active bleed. Eulogio Davidson MD
--- NOTE | 2017-08-09 10:57 | General Surgery Progress Note ---
Date of Encounter: 08/09/17 Time of Encounter: 10:51 - Assessment and Plan (1) GI bleed Current Visit: Yes Status: Acute 87M with LGIB s/p EGD and colonoscopy; (+)adherent clot at 2nd portion of duodenum, no active bleeding; 3 polyps appreciated on c-scopy without stigmata of bleeding; all were biopsied; NPO - resume diet after 2 consecutive h/h draws that are stable and patient remains HDS transfuse per primary team; may need repeat scope if there is no resolution; PPI gtt consider testing for h. pylori via serum; continue to monitor vitals; will cont to follow Qualifiers: GI bleed type/associated pathology: unspecified gastrointestinal hemorrhage type Qualified Code(s): K92.2 - Gastrointestinal hemorrhage, unspecified Subjective Patient reports: no new complaints, bowel movement, blood in stool, afebrile Objective Vital Signs - Last 8 Hours Temp Pulse Resp BP Pulse Ox 08/09/17 10:29 96 08/09/17 10:26 97.8 F 82 16 109/68 94 08/09/17 10:11 98.0 F 87 18 108/69 96 08/09/17 09:57 97.6 F 80 16 87/58 80 08/09/17 09:23 95 16 106/44 96 08/09/17 09:17 89 16 106/60 95 08/09/17 09:12 89 16 101/59 97 08/09/17 09:07 84 16 85/60 94 08/09/17 09:02 86 16 98/53 94 08/09/17 08:56 82 16 100/53 95 08/09/17 08:52 87 16 88/54 95 08/09/17 08:47 87 16 83/48 94 08/09/17 08:42 89 16 82/50 97 08/09/17 08:37 86 16 83/53 97 08/09/17 08:32 113 16 80/48 98 08/09/17 08:27 97 16 81/43 99 08/09/17 08:22 104 16 98/44 98 08/09/17 08:17 99 16 78/39 99 08/09/17 08:12 97 16 74/33 99 08/09/17 08:07 100 16 92/43 99 08/09/17 08:02 104 16 91/51 97 08/09/17 07:57 94 16 107/51 98 08/09/17 07:48 98.0 F 98 16 97/60 96 08/09/17 07:06 98.5 F 72 17 99/62 92 08/09/17 04:48 98.5 F 76 16 112/71 95 Intake and Output 08/08/17 08/09/17 08/09/17 23:59 07:59 15:59 Intake Total 240 / 240 1500 / 1500 Balance 240 / 240 1500 / 1500 Intake: IV Fluids 1500 / 1500 0.9 % Sodium Chloride 1,000 ML 1000 / 1000 @ 80 mls/hr IVC .[id number] CHARLIE Rx #:[id number] 0.9 % Sodium Chloride 500 ML @ 500 / 500 1875 mls/hr IVC .Q16M ONE Rx#: [id number] Oral 240 / 240 Other: Meal Full Liquids Stool Size Large Stool Consistency liquid liquid Stool Characteristics Tarry Stool Color Black Dark Red Blood Dark Red Blood Blood Tinged Blood Tinged # Voids 1 # Bowel Movements 1 1 Weight 68 kg Blood Glucose* 134 Patient Weight 08/09/17 23:59 Weight 68 kg - General physical appearance no distress - Respiratory normal expansion, normal respiratory effort - Cardiovascular Cardiovascular exam: Present: RRR - Abdomen Abdomen: Present: soft, non tender - Rectum normal sphincter tone, other (active bleeding) - Neurologic CN 2-12 grossly intact - Psychiatric oriented to time, oriented to person, oriented to place - Labs 08/09/17 06:58 08/08/17 01:38 Consult Discharge Plan - Plan Referrals: Jimmy Crawford MD [Primary Care Provider] - (web request 08/08/2016)
[2017-08-09 13:03] LABS: Hematocrit 23.2 % (37.5-50.1); Hemoglobin 7.4 g/dL (12.9-16.9)
[2017-08-09] MEDS: Gabapentin 300 MG CAPSULE PO SCH ×3 (13:29→23:54)
[2017-08-09] MEDS: Finasteride 5 MG TABLET PO SCH (13:30)
[2017-08-09] MEDS: predniSONE 5 MG TABLET PO SCH ×2 (13:30→17:38)
[2017-08-09] MEDS: Multivit/Ca/Min/Fe/FA 1 TAB TABLET PO SCH (13:31)
[2017-08-09 15:46] LABS: BUN/Creatinine Ratio 37 (6-26); Blood Urea Nitrogen 42 mg/dL (8-23); Calcium 5.8 mg/dL (8.6-10.3); Carbon Dioxide 18 mEq/L (23-29); Chloride 116 mEq/L (98-107); Glucose 93 mg/dL (70-105); Osmolality,Calculated 298 (280-300); Potassium 3.8 mEq/L (3.5-5.1); Sodium 139 mEq/L (136-145); eGFR For African Americans > 60 (> 60); eGFR For Non-African Americans > 60 (> 60)
[2017-08-09 18:17] LABS: Hematocrit 21.8 % (37.5-50.1); Hemoglobin 7.1 g/dL (12.9-16.9)
[2017-08-09] MEDS ORDERED: 0.9 % Sodium Chloride 250 ML ONE (20:41)
[2017-08-10] MEDS: Pantoprazole 40 MG VIAL IVP SCH ×2 (05:40→18:41)
[2017-08-10 06:21] LABS: VBG Ionized Calcium 0.86 mmol/L (1.15-1.35); VBG PH 7.28 pH Units (7.32-7.42)
[2017-08-10 06:33] LABS: Hematocrit 24.6 % (37.5-50.1); Hemoglobin 7.8 g/dL (12.9-16.9); Mean Corpuscular HGB Conc 31.7 g/dL (31.6-35.5); Mean Corpuscular Hemoglobin 29.2 pg (28.0-33.3); Mean Corpuscular Volume 92.1 fL (83.0-100.0); Mean Platelet Volume 9.2 fL (9.4-12.4); Platelet Count 184 K/mcL (140-400); Red Blood Count 2.67 M/mcL (4.19-5.50); Red Cell Distribution Width 17.2 % (11.5-14.5)
[2017-08-10 08:14] LABS: Albumin 2.4 g/dL (3.5-5.7); BUN/Creatinine Ratio 32 (6-26); Blood Urea Nitrogen 36 mg/dL (8-23); Calcium 5.8 mg/dL (8.6-10.3); Carbon Dioxide 18 mEq/L (23-29); Chloride 118 mEq/L (98-107); Glucose 80 mg/dL (70-105); Osmolality,Calculated 301 (280-300); Sodium 142 mEq/L (136-145); eGFR For African Americans > 60 (> 60); eGFR For Non-African Americans > 60 (> 60)
--- NOTE | 2017-08-10 08:52 | General Surgery Progress Note ---
Date of Encounter: 08/10/17 Time of Encounter: 08:48 - Assessment and Plan (1) GI bleed Current Visit: Yes Status: Acute 87M with LGIB s/p EGD and colonoscopy; (+)adherent clot at 2nd portion of duodenum, no active bleeding; check repeat h/h at 1200; if stable start diet start carafate place on PPI gtt check h. pylori serology will cont to follow Qualifiers: GI bleed type/associated pathology: unspecified gastrointestinal hemorrhage type Qualified Code(s): K92.2 - Gastrointestinal hemorrhage, unspecified Subjective Patient reports: no new complaints, bowel movement, blood in stool Objective Vital Signs - Last 8 Hours Temp Pulse Resp BP Pulse Ox 08/10/17 08:01 97.9 F 106 16 116/70 100 08/10/17 03:27 98.2 F 81 16 108/70 98 Intake and Output 08/09/17 08/10/17 08/10/17 23:59 07:59 15:59 Intake Total 0 / 0 300 / 300 Balance 0 / 0 300 / 300 Intake: Blood Product 0 / 0 300 / 300 Rbcs Leuko Poor As-1 Unit 0 / 0 300 / 300 [id number] Other: Weight 67.4 kg Blood Glucose* 106 Patient Weight 08/10/17 23:59 Weight 67.4 kg - General physical appearance no distress - Respiratory normal expansion, normal respiratory effort - Cardiovascular Cardiovascular exam: Present: RRR - Abdomen Abdomen: Present: soft, non tender - Neurologic CN 2-12 grossly intact - Psychiatric oriented to time, oriented to person, oriented to place - Labs 08/10/17 05:56 08/10/17 05:56 Diabetes panel 08/09/17 08/10/17 Range/Units 14:32 05:56 Sodium 139 142 (136-145) mEq/L Potassium 3.8 4.0 (3.5-5.1) mEq/L Chloride 116 H 118 H (98-107) mEq/L Carbon Dioxide 18 L 18 L (23-29) mEq/L BUN 42 H 36 H (8-23) mg/dL Creatinine 1.15 1.14 (0.70-1.30) mg/dL Glucose 93 80 (70-105) mg/dL Calcium 5.8 L* 5.8 L* (8.6-10.3) mg/dL Albumin 2.4 L (3.5-5.7) g/dL Calcium panel 08/09/17 08/10/17 Range/Units 14:32 05:56 Calcium 5.8 L* 5.8 L* (8.6-10.3) mg/dL Albumin 2.4 L (3.5-5.7) g/dL Pituitary panel 08/09/17 08/10/17 Range/Units 14:32 05:56 Sodium 139 142 (136-145) mEq/L Potassium 3.8 4.0 (3.5-5.1) mEq/L Chloride 116 H 118 H (98-107) mEq/L Carbon Dioxide 18 L 18 L (23-29) mEq/L BUN 42 H 36 H (8-23) mg/dL Creatinine 1.15 1.14 (0.70-1.30) mg/dL Glucose 93 80 (70-105) mg/dL Calcium 5.8 L* 5.8 L* (8.6-10.3) mg/dL Adrenal panel 08/09/17 08/10/17 Range/Units 14:32 05:56 Sodium 139 142 (136-145) mEq/L Potassium 3.8 4.0 (3.5-5.1) mEq/L Chloride 116 H 118 H (98-107) mEq/L Carbon Dioxide 18 L 18 L (23-29) mEq/L BUN 42 H 36 H (8-23) mg/dL Creatinine 1.15 1.14 (0.70-1.30) mg/dL Glucose 93 80 (70-105) mg/dL Calcium 5.8 L* 5.8 L* (8.6-10.3) mg/dL Albumin 2.4 L (3.5-5.7) g/dL Consult Discharge Plan - Plan Referrals: Jimmy Crawford MD [Primary Care Provider] - (web request 08/08/2016)
[2017-08-10] MEDS ORDERED: Calcium Gluconate 2,000 MG in D5% in Water 100 ML IVPB ONE (08:56)
[2017-08-10] MEDS: Multivit/Ca/Min/Fe/FA 1 TAB TABLET PO SCH (09:58)
[2017-08-10] MEDS: Finasteride 5 MG TABLET PO SCH (09:59)
[2017-08-10] MEDS: Gabapentin 300 MG CAPSULE PO SCH ×3 (09:59→20:33)
[2017-08-10] MEDS: predniSONE 5 MG TABLET PO SCH ×2 (09:59→18:36)
[2017-08-10 12:30] LABS: Hematocrit 23.6 % (37.5-50.1); Hemoglobin 7.4 g/dL (12.9-16.9)
--- NOTE | 2017-08-10 13:02 | Internal Med Progress Note ---
<Marcelo Arredondo - Last Filed: 08/10/17 13:35> Date of Encounter: 08/10/17 Time of Encounter: 08:45 - Assessment and plan (1) GI bleed Current Visit: Yes Status: Acute Assessment and plan: EGD demonstrates one non-obstructing non-bleeding duodenal ulcer with adherent clot at 2nd portion of duodenum without active bleed. Hemoglobin (7.4/7.8/7.1) stable, slight decrease likely from IVF. He has residual blood in stool from colonoscopy. Spoke with Dr. Donohue, and will repeat endoscopy if patient becomes hemodynamically stable. Continue IVF, protonix, sucralfate and monitor vital signs for now. Follow-up on biopsy and H Pylori testing. Start patient on clear liquid diet. Patient currently asymptomatic. Monitor with A.M. labs Qualifiers: GI bleed type/associated pathology: unspecified gastrointestinal hemorrhage type Qualified Code(s): K92.2 - Gastrointestinal hemorrhage, unspecified (2) Syncope Current Visit: Yes Status: Acute Assessment and plan: Resolved. Patient denies episodes of dizziness of lightheadedness. Qualifiers: Syncope type: unspecified Qualified Code(s): R55 - Syncope and collapse (3) Tachycardia Current Visit: Yes Status: Acute Assessment and plan: Resolved. Patient's vital signs are stable. (4) CKD (chronic kidney disease) stage 3, GFR 30-59 ml/min Current Visit: No Status: Chronic Assessment and plan: Patient's creatinine is stable and at baseline Continue to monitor electrolytes, creatinine, and avoid nephrotoxic agents (5) Prostate cancer Current Visit: No Status: Chronic Assessment and plan: Patient does follow with [facility] Continue outpatient chemotherapy once stable for discharge (6) Hypocalcemia Current Visit: Yes Status: Acute Assessment and plan: Serum Ca2+ = 5.8 this am. Patient received IV calcium. Recheck in AM labs. (7) DVT prophylaxis Current Visit: No Status: Acute Assessment and plan: EPCD, no AC b/o suspected GI bleed - Subjective Interval history: 87M with PMHx prostatic cancer with metastasis on chemo and recent transfusion at cancer center presented with syncopal episode. Patient has had multiple episodes of syncope in the past 4 months with prodrome of dizziness. FOBT +. Last colonoscopy was in 2006 (negative). Received blood transfusion recently due to decreasing Hb. Patient underwent EGD/colonoscopy yesterday with finding of adherent clot at 2nd portion of duodenum, but no active bleeding was found. He continues to have complaints of dark tarry stools, last BM yesterday night, and noted some red blood. Continues to have diffuse abdominal pain, poor appetite and loose stool. Denies any other source of bleeding. Denies dizziness , chest pain, shortness of breath, f/c/n/v, blurry vision, cough, weakness, dysuria, hematuria. - Constitutional Vitals: Temp Pulse Resp BP Pulse Ox 98.9 F 66 15 117/73 100 08/10/17 11:13 08/10/17 11:13 08/10/17 11:13 08/10/17 11:13 08/10/17 11:13 General appearance: Present: cooperative, pleasant, no acute distress, answers questions appropriately - Head Head exam: Present: atraumatic, normocephalic - Eye Eye exam: Present: normal appearance - ENT ENT exam: Present: mucous membranes dry - Neck Neck exam general surgery: Present: normal inspection, supple, trachea midline - Respiratory Respiratory exam: Present: CTAB. Absent: rales, rhonchi, wheezes, tachypnea - Cardiovascular Cardiovascular exam: Present: distant heart sounds, +S1, +S2. Absent: rubs, systolic murmur - GI/Abdominal GI/Abdominal exam: Present: normal bowel sounds, soft, tenderness (diffusely). Absent: distended, guarding, rebound, no peritoneal signs - Extremities Exam Extremities exam: Present: full ROM, normal capillary refill, warm, radial pulses palpable and symmetrical. Absent: tenderness - Neurological Exam Neurological exam: Present: alert, CN II-XII intact, oriented X3, reflexes normal, no focal deficits - Skin Skin exam: Present: dry Internal Medicine: Result - Labs CBC & Chem 7: 08/10/17 12:21 08/10/17 05:56 Labs: Short CBC 08/09/17 08/09/17 08/10/17 Range/Units 12:54 18:10 05:56 WBC 1.6 L D (4.3-11.1) K/mcL Hgb 7.4 L 7.1 L 7.8 L (12.9-16.9) g/dL Hct 23.2 L 21.8 L 24.6 L (37.5-50.1) % Plt Count 184 (140-400) K/mcL 08/10/17 Range/Units 12:21 WBC (4.3-11.1) K/mcL Hgb 7.4 L (12.9-16.9) g/dL Hct 23.6 L (37.5-50.1) % Plt Count (140-400) K/mcL BMP 08/09/17 08/10/17 14:32 05:56 Sodium 139 142 Potassium 3.8 4.0 Chloride 116 H 118 H Carbon Dioxide 18 L 18 L BUN 42 H 36 H Creatinine 1.15 1.14 Glucose 93 80 Calcium 5.8 L* 5.8 L* Liver Function 08/10/17 Range/Units 05:56 Albumin 2.4 L (3.5-5.7) g/dL - ABG Interpretation ABG results: PT/INR, D-dimer PT 16.1 Seconds (9.4-12.1) H 08/07/17 19:00 Consult Discharge Plan - Plan Referrals: Jimmy Crawford MD [Primary Care Provider] - (web request 08/08/2016) <Eulogio Davidson - Last Filed: 08/11/17 17:51> Date of Encounter: 08/10/17 - Constitutional Vitals: Temp Pulse Resp BP Pulse Ox 99.2 F 109 16 99/68 100 08/10/17 16:00 08/10/17 16:00 08/10/17 16:00 08/10/17 16:00 08/10/17 16:00 Internal Medicine: Result - Labs CBC & Chem 7: 08/11/17 08:33 08/11/17 06:34 Labs: Short CBC 08/10/17 08/10/17 Range/Units 05:56 12:21 WBC 1.6 L D (4.3-11.1) K/mcL Hgb 7.8 L 7.4 L (12.9-16.9) g/dL Hct 24.6 L 23.6 L (37.5-50.1) % Plt Count 184 (140-400) K/mcL BMP 08/10/17 05:56 Sodium 142 Potassium 4.0 Chloride 118 H Carbon Dioxide 18 L BUN 36 H Creatinine 1.14 Glucose 80 Calcium 5.8 L* Liver Function 08/10/17 Range/Units 05:56 Albumin 2.4 L (3.5-5.7) g/dL - ABG Interpretation ABG results: PT/INR, D-dimer PT 16.1 Seconds (9.4-12.1) H 08/07/17 19:00 - Attending Attestation I conducted a face to face diagnostic evaluation of this patient and my medical decision-making was reviewed with the Resident Physician. I agree with the documented findings, disposition and treatment plan as described except to the extent set forth below: Patient is in no acute distress. Heart is regular. Lungs are clear. Abdomen is soft. Plan continue with clear liquid diet. Continue with IV Protonix. H&H every 12 hours. Eulogio Davidson MD
[2017-08-11] MEDS: Pantoprazole 40 MG VIAL IVP SCH ×2 (05:52→20:40)
[2017-08-11 07:11] LABS: BUN/Creatinine Ratio 22 (6-26); Blood Urea Nitrogen 25 mg/dL (8-23); Calcium 6.2 mg/dL (8.6-10.3); Carbon Dioxide 18 mEq/L (23-29); Chloride 120 mEq/L (98-107); Glucose 83 mg/dL (70-105); Osmolality,Calculated 298 (280-300); Potassium 4.2 mEq/L (3.5-5.1); Sodium 142 mEq/L (136-145); eGFR For African Americans > 60 (> 60); eGFR For Non-African Americans 60 (> 60)
[2017-08-11 08:29] LABS: Hematocrit 22.5 % (37.5-50.1); Hemoglobin 6.9 g/dL (12.9-16.9); Mean Corpuscular HGB Conc 30.7 g/dL (31.6-35.5); Mean Corpuscular Hemoglobin 28.6 pg (28.0-33.3); Mean Corpuscular Volume 93.4 fL (83.0-100.0); Mean Platelet Volume 9.6 fL (9.4-12.4); Platelet Count 184 K/mcL (140-400); Red Blood Count 2.41 M/mcL (4.19-5.50); Red Cell Distribution Width 17.7 % (11.5-14.5)
--- NOTE | 2017-08-11 08:33 | General Surgery Progress Note ---
<Farida Whitney Kory - Last Filed: 08/11/17 10:06> Date of Encounter: 08/11/17 Time of Encounter: 08:00 - Assessment and Plan (1) GI bleed Current Visit: Yes Status: Acute s/p EGD/Colonoscopy with Dr. Donohue on 08/09/17- adherent clot at the second portion of the duodenum noted Pathology and H. Pylori pending Hgb- 7.1>7.8>7.4>6.9>7.2 Total of 2 units of PRBC transfused- last transfusion 08/09/17 at 2100 Continue PPI therapy BID Continue carafate QID Advance diet to soft diet as tolerated Medical management per hospitalist group Surgery will follow from a distance to monitor Hgb/Hct. Qualifiers: GI bleed type/associated pathology: unspecified gastrointestinal hemorrhage type Qualified Code(s): K92.2 - Gastrointestinal hemorrhage, unspecified Subjective Patient reports: no new complaints, feels better, tolerating liquids well, voiding w/o difficulty, flatus, bowel movement (last BM yesterday morning was documented as dark red), afebrile Objective Vital Signs - Last 8 Hours Temp Pulse Resp BP Pulse Ox 08/11/17 07:10 98.4 F 82 20 102/66 98 08/11/17 05:30 97.7 F 80 20 98/64 98 08/11/17 00:49 98 F 99 18 98/59 98 Intake and Output 08/10/17 08/11/17 08/11/17 23:59 07:59 15:59 Output Total 360 / 360 Balance -360 / -360 Output: Urine 360 / 360 Other: Weight 72.62 kg Patient Weight 08/11/17 23:59 Weight 72.62 kg - General physical appearance well developed, no distress, no pain, chronically ill - Eyes normal ocular movement - ENT normal mucosa, atraumatic, normocephalic - Neck Neck exam: trachea midline - Respiratory normal respiratory effort, other (diminished bibasilar bases) rales: bilateral - Cardiovascular Cardiovascular exam: Present: RRR - Abdomen Abdomen: Present: bowel sounds present, soft, non tender - Neurologic CN 2-12 grossly intact - Musculoskeletal other (generalized weakness noted) - Psychiatric oriented to time, oriented to person, oriented to place, speech is normal, memory intact - Labs 08/11/17 08:33 08/11/17 06:34 Diabetes panel 08/11/17 Range/Units 06:34 Sodium 142 (136-145) mEq/L Potassium 4.2 (3.5-5.1) mEq/L Chloride 120 H (98-107) mEq/L Carbon Dioxide 18 L (23-29) mEq/L BUN 25 H (8-23) mg/dL Creatinine 1.16 (0.70-1.30) mg/dL Glucose 83 (70-105) mg/dL Calcium 6.2 L (8.6-10.3) mg/dL Calcium panel 08/11/17 Range/Units 06:34 Calcium 6.2 L (8.6-10.3) mg/dL Pituitary panel 08/11/17 Range/Units 06:34 Sodium 142 (136-145) mEq/L Potassium 4.2 (3.5-5.1) mEq/L Chloride 120 H (98-107) mEq/L Carbon Dioxide 18 L (23-29) mEq/L BUN 25 H (8-23) mg/dL Creatinine 1.16 (0.70-1.30) mg/dL Glucose 83 (70-105) mg/dL Calcium 6.2 L (8.6-10.3) mg/dL Adrenal panel 08/11/17 Range/Units 06:34 Sodium 142 (136-145) mEq/L Potassium 4.2 (3.5-5.1) mEq/L Chloride 120 H (98-107) mEq/L Carbon Dioxide 18 L (23-29) mEq/L BUN 25 H (8-23) mg/dL Creatinine 1.16 (0.70-1.30) mg/dL Glucose 83 (70-105) mg/dL Calcium 6.2 L (8.6-10.3) mg/dL Consult Discharge Plan - Plan Referrals: Jimmy Crawford MD [Primary Care Provider] - (web request 08/08/2016) <Julian Donohue - Last Filed: 08/11/17 20:39> Date of Encounter: 08/11/17 - Assessment and Plan (1) GI bleed Current Visit: Yes Status: Acute Qualifiers: GI bleed type/associated pathology: unspecified gastrointestinal hemorrhage type Qualified Code(s): K92.2 - Gastrointestinal hemorrhage, unspecified Objective Vital Signs - Last 8 Hours Temp Pulse Resp BP Pulse Ox 08/11/17 16:11 99.0 F 58 18 106/69 98 Intake and Output 08/11/17 08/11/17 08/11/17 07:59 15:59 23:59 Intake Total 120 / 120 Output Total 360 / 360 250 / 250 Balance -360 / -360 120 / 120 -250 / -250 Intake: Oral 120 / 120 Output: Urine 360 / 360 250 / 250 Other: Meal Lunch Percent of Meal Consumed 40% Weight 72.62 kg Patient Weight 08/11/17 23:59 Weight 72.62 kg - Labs 08/11/17 08:33 08/11/17 06:34 Diabetes panel 08/11/17 Range/Units 06:34 Sodium 142 (136-145) mEq/L Potassium 4.2 (3.5-5.1) mEq/L Chloride 120 H (98-107) mEq/L Carbon Dioxide 18 L (23-29) mEq/L BUN 25 H (8-23) mg/dL Creatinine 1.16 (0.70-1.30) mg/dL Glucose 83 (70-105) mg/dL Calcium 6.2 L (8.6-10.3) mg/dL Calcium panel 08/11/17 Range/Units 06:34 Calcium 6.2 L (8.6-10.3) mg/dL Pituitary panel 08/11/17 Range/Units 06:34 Sodium 142 (136-145) mEq/L Potassium 4.2 (3.5-5.1) mEq/L Chloride 120 H (98-107) mEq/L Carbon Dioxide 18 L (23-29) mEq/L BUN 25 H (8-23) mg/dL Creatinine 1.16 (0.70-1.30) mg/dL Glucose 83 (70-105) mg/dL Calcium 6.2 L (8.6-10.3) mg/dL Adrenal panel 08/11/17 Range/Units 06:34 Sodium 142 (136-145) mEq/L Potassium 4.2 (3.5-5.1) mEq/L Chloride 120 H (98-107) mEq/L Carbon Dioxide 18 L (23-29) mEq/L BUN 25 H (8-23) mg/dL Creatinine 1.16 (0.70-1.30) mg/dL Glucose 83 (70-105) mg/dL Calcium 6.2 L (8.6-10.3) mg/dL - Attending Attestation I have personally seen and examined the patient. I have reviewed pertinent labs , imaging, progress notes, including this one. I agree with the above assessment and plan and wish to include the following... 87M with UGI found to have duodenal ulcer; hgb relatively stable; no acute intervention needed. If concern about continued bleeding and patient stable, would recommend tagged RBC scan Please call with any new questions or concerns.
[2017-08-11 08:40] LABS: Hematocrit 22.8 % (37.5-50.1); Hemoglobin 7.2 g/dL (12.9-16.9)
[2017-08-11] MEDS: Finasteride 5 MG TABLET PO SCH (09:28)
[2017-08-11] MEDS: predniSONE 5 MG TABLET PO SCH ×2 (09:28→17:13)
[2017-08-11] MEDS: Multivit/Ca/Min/Fe/FA 1 TAB TABLET PO SCH (09:28)
[2017-08-11] MEDS: Gabapentin 300 MG CAPSULE PO SCH ×3 (09:28→20:40)
--- NOTE | 2017-08-11 13:34 | Internal Med Progress Note ---
<Marcelo Arredondo - Last Filed: 08/11/17 16:52> Date of Encounter: 08/11/17 Time of Encounter: 13:00 - Assessment and plan (1) GI bleed Current Visit: Yes Status: Acute Assessment and plan: The patient is overall stable. He is asymptomatic but his Hb is downtrending 6.9 < 7.4 < 7.8. 1 unit of RBC ordered. RBC scan if hemoglobin drops > 1.5 to determine source of bleeding. Continue to monitor H/H Q12 hours. Continue fluids. Soft diet started. Surgery following at a distance for possible repeat EGD if suspicion of acute bleed remains high. Qualifiers: GI bleed type/associated pathology: unspecified gastrointestinal hemorrhage type Qualified Code(s): K92.2 - Gastrointestinal hemorrhage, unspecified (2) CKD (chronic kidney disease) stage 3, GFR 30-59 ml/min Current Visit: No Status: Chronic Assessment and plan: Patient's creatinine is stable and at baseline Continue to monitor electrolytes, creatinine, and avoid nephrotoxic agents (3) Prostate cancer Current Visit: No Status: Chronic Assessment and plan: Patient does follow with [facility] Continue outpatient chemotherapy once stable for discharge (4) Hypocalcemia Current Visit: Yes Status: Acute Assessment and plan: improved. continue to monitor with AM labs. (5) DVT prophylaxis Current Visit: No Status: Acute Assessment and plan: EPCD, no AC b/o suspected GI bleed - Time Spent With Patient 25 - 35 minutes - Subjective Interval history: 87M with PMHx prostatic cancer with metastasis on chemo and recent transfusion at cancer center presented with syncopal episode. Patient has had multiple episodes of syncope in the past 4 months with prodrome of dizziness. FOBT +. Last colonoscopy was in 2006 (negative). Continues to have diffuse abdominal pain, poor appetite and loose stool. Would like to have soft diet. Denies any other source of bleeding. Denies dizziness, chest pain, shortness of breath, f/c /n/v, blurry vision, cough, weakness, dysuria, hematuria. No overnight events. - Constitutional Vitals: Temp Pulse Resp BP Pulse Ox 98.6 F 77 18 101/65 97 08/11/17 11:04 08/11/17 11:04 08/11/17 11:04 08/11/17 11:04 08/11/17 11:04 General appearance: Present: cooperative, pleasant, no acute distress, answers questions appropriately - Head Head exam: Present: atraumatic, normocephalic - Eye Eye exam: Present: normal appearance - Neck Neck exam general surgery: Present: full ROM, normal inspection, supple, trachea midline - Respiratory Respiratory exam: Present: CTAB. Absent: rhonchi, wheezes - Cardiovascular Cardiovascular exam: Present: RRR - GI/Abdominal GI/Abdominal exam: Present: hypoactive bowel sounds, soft, tenderness. Absent: rebound - Extremities Exam Extremities exam: Present: full ROM, warm, radial pulses palpable and symmetrical - Neurological Exam Neurological exam: Present: alert, CN II-XII intact, oriented X3, no focal deficits. Absent: facial droop, speech deficit - Skin Skin exam: Present: dry, warm Internal Medicine: Result - Labs CBC & Chem 7: 08/11/17 08:33 08/11/17 06:34 Labs: Short CBC 08/11/17 08/11/17 Range/Units 06:34 08:33 WBC 2.1 L (4.3-11.1) K/mcL Hgb 6.9 L 7.2 L (12.9-16.9) g/dL Hct 22.5 L 22.8 L (37.5-50.1) % Plt Count 184 (140-400) K/mcL BMP 08/11/17 06:34 Sodium 142 Potassium 4.2 Chloride 120 H Carbon Dioxide 18 L BUN 25 H Creatinine 1.16 Glucose 83 Calcium 6.2 L - ABG Interpretation ABG results: PT/INR, D-dimer PT 16.1 Seconds (9.4-12.1) H 08/07/17 19:00 Consult Discharge Plan - Plan Referrals: Jimmy Crawford MD [Primary Care Provider] - (web request 08/08/2016) <Eulogio Davidson - Last Filed: 08/11/17 18:19> Date of Encounter: 08/11/17 - Constitutional Vitals: Temp Pulse Resp BP Pulse Ox 99.0 F 58 18 106/69 98 08/11/17 16:11 08/11/17 16:11 08/11/17 16:11 08/11/17 16:11 08/11/17 16:11 Internal Medicine: Result - Labs CBC & Chem 7: 08/11/17 08:33 08/11/17 06:34 Labs: Short CBC 08/11/17 08/11/17 Range/Units 06:34 08:33 WBC 2.1 L (4.3-11.1) K/mcL Hgb 6.9 L 7.2 L (12.9-16.9) g/dL Hct 22.5 L 22.8 L (37.5-50.1) % Plt Count 184 (140-400) K/mcL BMP 08/11/17 06:34 Sodium 142 Potassium 4.2 Chloride 120 H Carbon Dioxide 18 L BUN 25 H Creatinine 1.16 Glucose 83 Calcium 6.2 L - ABG Interpretation ABG results: PT/INR, D-dimer PT 16.1 Seconds (9.4-12.1) H 08/07/17 19:00 - Attending Attestation I conducted a face to face diagnostic evaluation of this patient and my medical decision-making was reviewed with the Resident Physician. I agree with the documented findings, disposition and treatment plan as described except to the extent set forth below: Patient reports constipation, no abdominal pain and rectal bleeding and nausea vomiting or hematemesis. Patient is in no acute distress. Heart is regular, lungs are clear, abdomen soft. Hemoglobin is7.2 today. We will transfuse 1 unit of PRBC. Continue with Carafate and IV Protonix twice a day. Eulogio Davidson MD
[2017-08-11] MEDS ORDERED: Sennosides/Docusate Sodium TABLET PO SCH (16:22)
[2017-08-11] MEDS ORDERED: Sennosides/Docusate Sodium TABLET PO ONE (16:26)
[2017-08-11] MEDS ORDERED: 0.9 % Sodium Chloride 250 ML ONE (16:36)
[2017-08-12 05:46] LABS: Hematocrit 26.7 % (37.5-50.1); Hemoglobin 8.3 g/dL (12.9-16.9); Mean Corpuscular HGB Conc 31.1 g/dL (31.6-35.5); Mean Corpuscular Hemoglobin 28.2 pg (28.0-33.3); Mean Corpuscular Volume 90.8 fL (83.0-100.0); Mean Platelet Volume 9.1 fL (9.4-12.4); Platelet Count 173 K/mcL (140-400); Red Blood Count 2.94 M/mcL (4.19-5.50); Red Cell Distribution Width 19.1 % (11.5-14.5)
[2017-08-12 05:59] LABS: BUN/Creatinine Ratio 17 (6-26); Blood Urea Nitrogen 20 mg/dL (8-23); Calcium 6.5 mg/dL (8.6-10.3); Carbon Dioxide 17 mEq/L (23-29); Chloride 118 mEq/L (98-107); Glucose 85 mg/dL (70-105); Osmolality,Calculated 294 (280-300); Potassium 4.3 mEq/L (3.5-5.1); Sodium 141 mEq/L (136-145); eGFR For African Americans > 60 (> 60); eGFR For Non-African Americans 59 (> 60)
[2017-08-12] MEDS: Pantoprazole 40 MG VIAL IVP SCH ×2 (06:01→18:18)
[2017-08-12] MEDS: Finasteride 5 MG TABLET PO SCH (07:51)
[2017-08-12] MEDS: Multivit/Ca/Min/Fe/FA 1 TAB TABLET PO SCH (07:51)
[2017-08-12] MEDS: Gabapentin 300 MG CAPSULE PO SCH ×3 (07:51→20:55)
[2017-08-12] MEDS: predniSONE 5 MG TABLET PO SCH ×2 (07:52→16:03)
--- NOTE | 2017-08-12 17:21 | Internal Med Progress Note ---
Date of Encounter: 08/12/17 Time of Encounter: 10:00 - Assessment and plan (1) GI bleed Current Visit: Yes Status: Acute Assessment and plan: Hemoglobin responded appropriately to transfusion as 8.3 today. Monitor hemoglobin and hematocrit every 12 hours. Transfuse if below 7.5. 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 (3) Hypertension Current Visit: No Status: Chronic Assessment and plan: Blood pressures were borderline low over the last 24 hours. We will hold Cozaar. Qualifiers: Hypertension type: essential hypertension Qualified Code(s): I10 - Essential (primary) hypertension (4) DVT prophylaxis Current Visit: No Status: Acute Assessment and plan: EPCD, no AC b/o suspected GI bleed (5) CKD (chronic kidney disease) stage 3, GFR 30-59 ml/min Current Visit: No Status: Chronic Assessment and plan: Patient's creatinine is stable and at baseline Continue to monitor electrolytes, creatinine, and avoid nephrotoxic agents (6) Anemia due to blood loss Current Visit: Yes Status: Acute Assessment and plan: H&H every 12 hours. Transfuse to maintain hemoglobin above 8. (7) Duodenal ulcer Current Visit: Yes Status: Acute Assessment and plan: We will switch to oral Protonix and continue with Carafate. Follow-up H. pylori testing. - Subjective Interval history: Patient had a bowel movement today, denies any blood in the stool, denies melena nausea or vomiting. - Constitutional Vitals: Temp Pulse Resp BP Pulse Ox 98.7 F 70 16 104/72 95 08/12/17 15:26 08/12/17 15:26 08/12/17 15:26 08/12/17 15:26 08/12/17 15:26 General appearance: Present: cooperative, pleasant, no acute distress, answers questions appropriately - Respiratory Respiratory exam: Present: CTAB. Absent: accessory muscle use, rales, rhonchi, wheezes - Cardiovascular Cardiovascular exam: Present: RRR, +S1, +S2. Absent: diastolic murmur, gallop, rubs, systolic murmur - GI/Abdominal GI/Abdominal exam: Present: normal bowel sounds, soft, no peritoneal signs. Absent: distended, tenderness Internal Medicine: Result - Labs CBC & Chem 7: 08/12/17 05:08 08/12/17 05:08 Labs: Short CBC 08/12/17 Range/Units 05:08 WBC 3.0 L (4.3-11.1) K/mcL Hgb 8.3 L (12.9-16.9) g/dL Hct 26.7 L (37.5-50.1) % Plt Count 173 (140-400) K/mcL BMP 08/12/17 05:08 Sodium 141 Potassium 4.3 Chloride 118 H Carbon Dioxide 17 L BUN 20 Creatinine 1.18 Glucose 85 Calcium 6.5 L - ABG Interpretation ABG results: PT/INR, D-dimer PT 16.1 Seconds (9.4-12.1) H 08/07/17 19:00 - VTE Documentation of Mechanical Device: Intermittent pneumatic compression device Consult Discharge Plan - Plan Referrals: Jimmy Crawford MD [Primary Care Provider] - (web request 08/08/2016)
[2017-08-12] MEDS ORDERED: Sennosides/Docusate Sodium TABLET PO ONE (17:31)
[2017-08-13] MEDS: Pantoprazole 40 MG VIAL IVP SCH (06:08)
[2017-08-13 07:34] LABS: BUN/Creatinine Ratio 14 (6-26); Blood Urea Nitrogen 17 mg/dL (8-23); Calcium 6.6 mg/dL (8.6-10.3); Carbon Dioxide 18 mEq/L (23-29); Chloride 120 mEq/L (98-107); Glucose 93 mg/dL (70-105); Osmolality,Calculated 295 (280-300); Potassium 4.5 mEq/L (3.5-5.1); Sodium 142 mEq/L (136-145); eGFR For African Americans > 60 (> 60); eGFR For Non-African Americans 56 (> 60)
[2017-08-13 07:35] LABS: Hematocrit 26.1 % (37.5-50.1); Hemoglobin 8.3 g/dL (12.9-16.9); Mean Corpuscular HGB Conc 31.8 g/dL (31.6-35.5); Mean Corpuscular Hemoglobin 28.7 pg (28.0-33.3); Mean Corpuscular Volume 90.3 fL (83.0-100.0); Platelet Count 169 K/mcL (140-400); Red Blood Count 2.89 M/mcL (4.19-5.50); Red Cell Distribution Width 18.8 % (11.5-14.5)
[2017-08-13] MEDS: predniSONE 5 MG TABLET PO SCH ×2 (09:11→16:06)
[2017-08-13] MEDS: Gabapentin 300 MG CAPSULE PO SCH ×3 (09:11→21:43)
[2017-08-13] MEDS: Finasteride 5 MG TABLET PO SCH (09:12)
[2017-08-13] MEDS: Multivit/Ca/Min/Fe/FA 1 TAB TABLET PO SCH (09:12)
--- NOTE | 2017-08-13 11:02 | Internal Med Progress Note ---
Date of Encounter: 08/13/17 Time of Encounter: 11:00 - Assessment and plan (1) GI bleed Current Visit: Yes Status: Acute Assessment and plan: Switch to Protonix oral twice a day. Awaiting H. pylori test results. Per general surgery duodenal ulcer possibly related to H. pylori infection and therefore will start empiric triple therapy for H. pylori. 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 (3) Hypertension Current Visit: No Status: Chronic Assessment and plan: Blood pressures were borderline low over the last 24 hours. We will hold Cozaar. Qualifiers: Hypertension type: essential hypertension Qualified Code(s): I10 - Essential (primary) hypertension (4) DVT prophylaxis Current Visit: No Status: Acute Assessment and plan: EPCD, no AC b/o suspected GI bleed (5) CKD (chronic kidney disease) stage 3, GFR 30-59 ml/min Current Visit: No Status: Chronic Assessment and plan: Patient's creatinine is stable and at baseline Continue to monitor electrolytes, creatinine, and avoid nephrotoxic agents (6) Anemia due to blood loss Current Visit: Yes Status: Acute Assessment and plan: Hemoglobin is 8.3 today however the patient is still symptomatic with weakness, lightheadedness upon standing and mildly tachycardic. I will transfuse 1 more unit PRBC. Check hemoglobin and hematocrit in the morning. Check iron panel in the morning. (7) Duodenal ulcer Current Visit: Yes Status: Acute Assessment and plan: We will switch to oral Protonix and continue with Carafate. Follow-up H. pylori testing. Start empiric triple therapy. - Subjective Interval history: Patient reports generalized weakness, worse with ambulation, with mild shortness of breath, unchanged from yesterday. He denies hematemesis and melena. He tolerated a regular diet. Denies abdominal pain. - Constitutional Vitals: Temp Pulse Resp BP Pulse Ox 98.2 F 88 15 96/64 95 08/13/17 07:23 08/13/17 07:23 08/13/17 07:23 08/13/17 07:23 08/13/17 07:23 General appearance: Present: cooperative, A&O X 3, pleasant, no acute distress, answers questions appropriately - Respiratory Respiratory exam: Present: CTAB. Absent: accessory muscle use, rales, rhonchi, wheezes - Cardiovascular Cardiovascular exam: Present: RRR, +S1, +S2. Absent: diastolic murmur, gallop, rubs, systolic murmur - GI/Abdominal GI/Abdominal exam: Present: normal bowel sounds, soft, no peritoneal signs. Absent: distended, tenderness Internal Medicine: Result - Labs CBC & Chem 7: 08/13/17 07:03 08/13/17 07:03 Labs: Short CBC 08/13/17 Range/Units 07:03 WBC 3.9 L (4.3-11.1) K/mcL Hgb 8.3 L (12.9-16.9) g/dL Hct 26.1 L (37.5-50.1) % Plt Count 169 (140-400) K/mcL BMP 08/13/17 07:03 Sodium 142 Potassium 4.5 Chloride 120 H Carbon Dioxide 18 L BUN 17 Creatinine 1.23 Glucose 93 Calcium 6.6 L - ABG Interpretation ABG results: PT/INR, D-dimer PT 16.1 Seconds (9.4-12.1) H 08/07/17 19:00 - VTE Documentation of Mechanical Device: Intermittent pneumatic compression device Consult Discharge Plan - Plan Referrals: Jimmy Crawford MD [Primary Care Provider] - (web request 08/08/2016)
[2017-08-13] MEDS ORDERED: Furosemide 20 MG/2 ML VIAL IVP ONE (11:07)
[2017-08-13] MEDS ORDERED: 0.9 % Sodium Chloride 250 ML ONE (11:31)
[2017-08-13] MEDS: Amoxicillin 500 MG CAPSULE PO SCH ×2 (11:57→21:44)
[2017-08-14 06:24] LABS: Hematocrit 29.7 % (37.5-50.1); Hemoglobin 9.6 g/dL (12.9-16.9); Immature Granulocytes % 1.8 % (0-4); Lymphocytes # 1.5 K/mcL (0.6-4.6); Mean Corpuscular HGB Conc 32.3 g/dL (31.6-35.5); Mean Corpuscular Hemoglobin 29.3 pg (28.0-33.3); Mean Corpuscular Volume 90.5 fL (83.0-100.0); Mean Platelet Volume 9.1 fL (9.4-12.4); Monocytes # 0.6 K/mcL (0.0-1.3); Monocytes % 9.8 %; Neutrophils # 3.4 K/mcL (1.6-8.9); Nucleated Red Blood Cells 0.4 /100 WBC (0); Platelet Count 157 K/mcL (140-400); Red Blood Count 3.28 M/mcL (4.19-5.50); Red Cell Distribution Width 18.3 % (11.5-14.5); Segmented Neutrophils % 61.4 %
[2017-08-14 07:41] LABS: % Iron Saturation 28 % (20-55); BUN/Creatinine Ratio 12 (6-26); Blood Urea Nitrogen 16 mg/dL (8-23); Calcium 6.6 mg/dL (8.6-10.3); Carbon Dioxide 20 mEq/L (23-29); Chloride 117 mEq/L (98-107); Ferritin > 1350 ng/ml (20-250); Glucose 82 mg/dL (70-105); Iron 47 mcg/dL (65-175); Osmolality,Calculated 296 (280-300); Potassium 4.1 mEq/L (3.5-5.1); Sodium 143 mEq/L (136-145); Transferrin 120 mg/dL (203-362); eGFR For African Americans > 60 (> 60); eGFR For Non-African Americans 52 (> 60)
[2017-08-14] MEDS: Amoxicillin 500 MG CAPSULE PO SCH ×2 (10:01→21:20)
[2017-08-14] MEDS: Finasteride 5 MG TABLET PO SCH (10:01)
[2017-08-14] MEDS: Gabapentin 300 MG CAPSULE PO SCH ×3 (10:01→21:20)
[2017-08-14] MEDS: predniSONE 5 MG TABLET PO SCH ×2 (10:02→16:59)
[2017-08-14] MEDS: Multivit/Ca/Min/Fe/FA 1 TAB TABLET PO SCH (10:02)
--- NOTE | 2017-08-14 10:07 | Internal Med Progress Note ---
<Marcelo Arredondo - Last Filed: 08/14/17 13:32> Date of Encounter: 08/14/17 Time of Encounter: 09:00 - Assessment and plan (1) GI bleed Current Visit: Yes Status: Acute Assessment and plan: Improved. H/H stable 9.6<8.3<8.3. Last 1 unit blood product infusion yesterday afternoon. Continue empiric triple therapy for H. pylori and follow-up on H. pylori cultures. If H/H continues to be stable, plan for discharge tomorrow. PT/OT consulted to strengthen patient's walking capacity. services host consulted. Qualifiers: GI bleed type/associated pathology: unspecified gastrointestinal hemorrhage type Qualified Code(s): K92.2 - Gastrointestinal hemorrhage, unspecified (2) CKD (chronic kidney disease) stage 3, GFR 30-59 ml/min Current Visit: No Status: Chronic Assessment and plan: Patient's creatinine is stable and at baseline Continue to monitor electrolytes, creatinine, and avoid nephrotoxic agents (3) Prostate cancer Current Visit: No Status: Chronic Assessment and plan: Patient does follow with [facility] Continue outpatient chemotherapy once stable for discharge (4) Hypocalcemia Current Visit: Yes Status: Acute Assessment and plan: improved. continue to monitor with AM labs. (5) DVT prophylaxis Current Visit: No Status: Acute Assessment and plan: EPCD, no AC b/o suspected GI bleed - Time Spent With Patient 25 - 35 minutes - Subjective Interval history: 87M with PMHx prostatic cancer with metastasis on chemo and recent transfusion at cancer center presented with syncopal episode. Patient has had multiple episodes of syncope in the past 4 months with prodrome of dizziness. FOBT +. Last colonoscopy was in 2006 (negative). Patient reports improvement of bowel movement. Stool is still watery but now brown colored. Denies any other source of acute bleeding. Denies dizziness, chest pain, shortness of breath, f/c/n/v, blurry vision, cough, weakness, dysuria, hematuria. No overnight events. - Constitutional Vitals: Temp Pulse Resp BP Pulse Ox 97.7 F 67 17 105/62 94 08/14/17 08:28 08/14/17 08:28 08/14/17 08:28 08/14/17 08:28 08/14/17 08:28 General appearance: Present: cooperative, A&O X 3, pleasant, no acute distress, answers questions appropriately - Head Head exam: Present: atraumatic, normocephalic - Eye Eye exam: Present: normal appearance - ENT ENT exam: Present: mucous membranes moist - Neck Neck exam general surgery: Present: full ROM, supple, trachea midline. Absent: lymphadenopathy - Respiratory Respiratory exam: Present: decreased breath sounds, CTAB - Cardiovascular Cardiovascular exam: Present: distant heart sounds, +S1, +S2 - GI/Abdominal GI/Abdominal exam: Present: normal bowel sounds, soft, no peritoneal signs. Absent: guarding, hepatomegaly, splenomegaly - Extremities Exam Extremities exam: Present: full ROM, warm, radial pulses palpable and symmetrical. Absent: pedal edema, tenderness - Neurological Exam Neurological exam: Present: alert, CN II-XII intact, oriented X3, no focal deficits. Absent: facial droop, speech deficit - Psychiatric Psychiatric exam: Present: normal affect, normal mood - Skin Skin exam: Present: intact, warm. Absent: rash Internal Medicine: Result - Labs CBC & Chem 7: 08/14/17 06:05 08/14/17 06:05 Labs: Short CBC 08/14/17 Range/Units 06:05 WBC 5.6 (4.3-11.1) K/mcL Hgb 9.6 L (12.9-16.9) g/dL Hct 29.7 L (37.5-50.1) % Plt Count 157 (140-400) K/mcL Neutrophils # 3.4 (1.6-8.9) K/mcL BMP 08/14/17 06:05 Sodium 143 Potassium 4.1 Chloride 117 H Carbon Dioxide 20 L BUN 16 Creatinine 1.31 H Glucose 82 Calcium 6.6 L - ABG Interpretation ABG results: PT/INR, D-dimer PT 16.1 Seconds (9.4-12.1) H 08/07/17 19:00 - VTE Documentation of Mechanical Device: Intermittent pneumatic compression device Consult Discharge Plan - Plan Referrals: Jimmy Crawford MD [Primary Care Provider] - (web request 08/08/2016) <Eulogio Davidson - Last Filed: 08/14/17 22:44> Date of Encounter: 08/14/17 - Assessment and plan (1) GI bleed Current Visit: Yes Status: Acute Qualifiers: GI bleed type/associated pathology: unspecified gastrointestinal hemorrhage type Qualified Code(s): K92.2 - Gastrointestinal hemorrhage, unspecified (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 Current Visit: No Status: Chronic (3) Hypertension Current Visit: No Status: Chronic Qualifiers: Hypertension type: essential hypertension Qualified Code(s): I10 - Essential (primary) hypertension (4) DVT prophylaxis Current Visit: No Status: Acute (5) CKD (chronic kidney disease) stage 3, GFR 30-59 ml/min Current Visit: No Status: Chronic (6) Anemia due to blood loss Current Visit: Yes Status: Acute (7) Duodenal ulcer Current Visit: Yes Status: Acute - Constitutional Vitals: Temp Pulse Resp BP Pulse Ox 98 F 101 20 88/55 95 08/14/17 21:11 08/14/17 21:11 08/14/17 21:11 08/14/17 21:11 08/14/17 21:11 Internal Medicine: Result - Labs CBC & Chem 7: 08/14/17 06:05 08/14/17 06:05 Labs: Short CBC 08/14/17 Range/Units 06:05 WBC 5.6 (4.3-11.1) K/mcL Hgb 9.6 L (12.9-16.9) g/dL Hct 29.7 L (37.5-50.1) % Plt Count 157 (140-400) K/mcL Neutrophils # 3.4 (1.6-8.9) K/mcL BMP 08/14/17 06:05 Sodium 143 Potassium 4.1 Chloride 117 H Carbon Dioxide 20 L BUN 16 Creatinine 1.31 H Glucose 82 Calcium 6.6 L - ABG Interpretation ABG results: PT/INR, D-dimer PT 16.1 Seconds (9.4-12.1) H 08/07/17 19:00 - Attending Attestation I conducted a face to face diagnostic evaluation of this patient and my medical decision-making was reviewed with the Resident Physician. I agree with the documented findings, disposition and treatment plan as described except to the extent set forth below: Additional physical exam finding: Stage II sacral decubitus ulcer measuring 2 x 0.5 cm. Plan: Wound care with their cream and Allevin, daily dressing changes. PT OT. Social work for senior care facility placement. Eulogio Davidson MD
[2017-08-15 06:17] LABS: Basophils % 0.3 %; Hematocrit 30.2 % (37.5-50.1); Hemoglobin 9.6 g/dL (12.9-16.9); Immature Granulocytes % 1.5 % (0-4); Lymphocytes # 1.5 K/mcL (0.6-4.6); Lymphocytes % 21.2 %; Mean Corpuscular HGB Conc 31.8 g/dL (31.6-35.5); Mean Corpuscular Hemoglobin 29.1 pg (28.0-33.3); Mean Corpuscular Volume 91.5 fL (83.0-100.0); Monocytes # 0.5 K/mcL (0.0-1.3); Neutrophils # 4.8 K/mcL (1.6-8.9); Platelet Count 169 K/mcL (140-400); Red Cell Distribution Width 18.1 % (11.5-14.5)
[2017-08-15 06:27] LABS: BUN/Creatinine Ratio 15 (6-26); Blood Urea Nitrogen 17 mg/dL (8-23); Calcium 6.8 mg/dL (8.6-10.3); Carbon Dioxide 18 mEq/L (23-29); Chloride 117 mEq/L (98-107); Glucose 88 mg/dL (70-105); Osmolality,Calculated 293 (280-300); Potassium 4.2 mEq/L (3.5-5.1); Sodium 141 mEq/L (136-145); eGFR For African Americans > 60 (> 60); eGFR For Non-African Americans 59 (> 60)
--- NOTE | 2017-08-15 07:51 | Discharge Summary ---
Date of Encounter: 08/15/17 Time of Encounter: 07:40 - Discharge Diagnosis (1) GI bleed Priority: Primary Status: Acute Qualifiers: GI bleed type/associated pathology: unspecified gastrointestinal hemorrhage type Qualified Code(s): K92.2 - Gastrointestinal hemorrhage, unspecified (2) CKD (chronic kidney disease) stage 3, GFR 30-59 ml/min Priority: Secondary Status: Chronic (3) Prostate cancer Priority: Secondary Status: Chronic (4) Hypocalcemia Priority: Secondary Status: Acute (5) DVT prophylaxis Priority: Secondary Status: Acute - Discharge Medications Prescriptions: Amoxicillin [Amoxil] 1,000 mg PO BID #16 capsule Clarithromycin [Biaxin] 500 mg PO BID #16 tablet Omeprazole [PriLOSEC] 40 mg PO BID #16 cap Home Medications: Amlodipine Besylate 10 mg PO DAILY 09/01/16 [History] Aspirin [Lo-Dose Aspirin EC] 162 mg PO DAILY 09/01/16 [History] Finasteride [Proscar] 5 mg PO DAILY 09/01/16 [History] Furosemide [Lasix] 20 mg PO Q48H PRN 09/01/16 [History] Losartan Potassium [Cozaar] 100 mg PO DAILY 09/01/16 [History] Multivit-Min/FA/Lycopen/Lutein [Centrum Silver Men Tablet] 1 tab PO DAILY [History] Potassium Chloride [Klor-Con 10] 40 meq PO DAILY 09/01/16 [History] Pravastatin Sodium [Pravachol] 20 mg PO HS 09/01/16 [History] Terazosin [Hytrin] 5 mg PO HS 09/01/16 [History] Gabapentin [Neurontin] 300 mg PO TID #90 capsule 04/18/17 [Rx] Vitamin E Acid Succinate [Vitamin E] 400 units PO BID #60 tab 04/18/17 [Rx] predniSONE [PredniSONE] 5 mg PO BIDWM #60 tablet 06/26/17 [Rx] Omeprazole [PriLOSEC] 20 mg PO BIDAC #30 cap 07/10/17 [Rx] Ondansetron HCl [Zofran] 4 mg PO Q4H PRN #30 tablet 07/10/17 [Rx] Prochlorperazine Maleate [Compazine] 10 mg PO Q6H PRN #30 tablet 07/10/17 [Rx] Timolol Maleate 0.5% 1 drop RIGHT EYE BID 07/27/17 [History] Dronabinol [Marinol] 5 mg PO BIDLS #60 capsule 07/29/17 [Rx] Dexamethasone [Decadron] 8 mg PO BID 08/07/17 [History] Polyethylene Glycol 3350 17 gm PO DAILY PRN 08/07/17 [History] Amoxicillin [Amoxil] 1,000 mg PO BID #16 capsule 08/15/17 [Rx] Clarithromycin [Biaxin] 500 mg PO BID #16 tablet 08/15/17 [Rx] Omeprazole [PriLOSEC] 40 mg PO BID #16 cap 08/15/17 [Rx] Allergies/Adverse Reactions: 3 Allergy/AdvReac Type Severity Reaction Status Date / Time terbinafine [From Lamisil] Allergy Rash Verified 08/01/17 10:02 Date of admission: 08/08/17 10:42 Primary care physician: Jimmy Crawford MD Consults: 08/14/17 11:47 Consult to Occupational Therapy [CONS] Routine Comment: Evaluate, develop and implement POC Reason for Consult: Weak, debilitated Consult to Physical Therapy [CONS] Routine Comment: Evaluate, develop and implement POC Reason for Consult: Weak, debilitated Consult to Unishear Operator [CONS] Routine Reason for SW Consult: Needs subacute rehabilitation Discharging clinician: Marcelo Arredondo Anticipated date of discharge: 08/15/17 - Patient Status Disposition: Home, Self-Care Condition: Fair Functional capacity at discharge: independent ambulation Overall status at discharge: patient is progressing back to baseline - Discharge Instructions Follow Up With: Jimmy Crawofrd MD [Primary Care Provider] - (web request 08/08/2016) - Diet and Activity Diet: advance to your usual diet Hospital course: Mr. Monroe is a 87 year old male past medical history of prostate cancer on chemotherapy and recent transfusion at cancer center presented with syncopal episode on 08/08/2017. He reported that syncopal episode lasted 1-2 minutes and denied any fall or injury. Patient also reports that he had black tarry stool the day before admission. Cardiology was consultation due to SVT and irregularly irregular heartbeat; they advised to start patient on low-dose beta gray and start aspirin but no cardiology intervention needed for dizziness inpatient visit. Echocardiogram was negative for acute ischemia. Endoscopy and colonoscopy performed by Dr. Donohue to determine the etiology of bleeding. Endoscopy demonstrated clotted blood in the second portion of the duodenum. A 7 mm polyp was found on ascending colon and was removed for pathology. 8 semi- pedunculated polyps also found in the mid sigmoid colon and transverse colon. No acute bleeding was determined. Patient received a total of 4 units blood products throughout his inpatient visit due to dropping hemoglobin. His stool normalized after fourth unit of blood product and H&H has been stable for greater than 48 hours. Patient has returned to baseline. He shows no acute symptoms of blood loss. H pylori culture pending, but triple therapy with amoxicillin, clarithromycin, omeprazole (day #2) was started due to high likeliness of PUD from H. Pylori infection after chemotherapy. Patient is to follow-up with his oncologist and primary care physician in regard to blood loss and continuation of chemotherapy. Time spent discussing smoking cessation with patient: more than 10 minutes - Time Spent with Patient Total time spent providing and/or coordinating discharge services: Greater than 30 minutes - Constitutional Vitals: Temp Pulse Resp BP Pulse Ox 98.2 F 67 18 123/74 95 08/15/17 07:08 08/15/17 07:08 08/15/17 07:08 08/15/17 07:08 08/15/17 07:08 General appearance: Present: cooperative, A&O X 3, pleasant, no acute distress, answers questions appropriately - Head Head exam: Present: atraumatic, normocephalic - Eye Eye exam: Present: normal appearance, scleral icterus - ENT ENT exam: Present: mucous membranes moist - Neck Neck exam general surgery: Present: normal inspection, supple, trachea midline - Respiratory Respiratory exam: Present: CTAB. Absent: rales, rhonchi, wheezes - Cardiovascular Cardiovascular exam: Present: distant heart sounds, +S1, +S2 - GI/Abdominal GI/Abdominal exam: Present: normal bowel sounds, soft. Absent: hepatomegaly, splenomegaly - Extremities Exam Extremities exam: Present: full ROM, tenderness, warm, radial pulses palpable and symmetrical. Absent: pedal edema - Neurological Exam Neurological exam: Present: alert, CN II-XII intact, oriented X3. Absent: facial droop, speech deficit - Skin Skin exam: Present: dry, intact, warm. Absent: rash - VTE Documentation of Mechanical Device: Intermittent pneumatic compression device
[2017-08-15 10:59] VITALS: BP 126/70
[2017-08-15] MEDS: Gabapentin 300 MG CAPSULE PO SCH (13:20)
[2017-08-15] MEDS: Finasteride 5 MG TABLET PO SCH (13:20)
[2017-08-15] MEDS: Amoxicillin 500 MG CAPSULE PO SCH (13:21)
[2017-08-15] MEDS: Multivit/Ca/Min/Fe/FA 1 TAB TABLET PO SCH (13:22)
[2017-08-15] MEDS: predniSONE 5 MG TABLET PO SCH (13:22)
--- NOTE | 2017-08-15 18:11 | Physician Discharge Referral ---
Home Health/Hosp Referral Info Transfer to: Home Health Attending Provider: Jos Potter Provider in Charge Post Discharge: PCP - Diagnosis (1) GI bleed Priority: Primary Status: Acute (2) CKD (chronic kidney disease) stage 3, GFR 30-59 ml/min Priority: Secondary Status: Chronic (3) Prostate cancer Priority: Secondary Status: Chronic (4) Hypocalcemia Priority: Secondary Status: Acute - Respiratory Orders None Smoking Cessation: Smoking cessation has been advised. For more information, call the [place] Tobacco Quit Line at 6-947-UXAL-NOW. - Diet/Nutrition Diet/Nutrition Orders: Regular - Activity Activity Orders: Ambulate - Services Needed Following services are medically necessary services: Home Health Aide - Transfer Medications Prescriptions: Amoxicillin [Amoxil] 1,000 mg PO BID #16 capsule Clarithromycin [Biaxin] 500 mg PO BID #16 tablet Omeprazole [PriLOSEC] 40 mg PO BID #16 cap Home Medications: Amlodipine Besylate 10 mg PO DAILY 09/01/16 [History] Aspirin [Lo-Dose Aspirin EC] 162 mg PO DAILY 09/01/16 [History] Finasteride [Proscar] 5 mg PO DAILY 09/01/16 [History] Furosemide [Lasix] 20 mg PO Q48H PRN 09/01/16 [History] Losartan Potassium [Cozaar] 100 mg PO DAILY 09/01/16 [History] Multivit-Min/FA/Lycopen/Lutein [Centrum Silver Men Tablet] 1 tab PO DAILY [History] Potassium Chloride [Klor-Con 10] 40 meq PO DAILY 09/01/16 [History] Pravastatin Sodium [Pravachol] 20 mg PO HS 09/01/16 [History] Terazosin [Hytrin] 5 mg PO HS 09/01/16 [History] Gabapentin [Neurontin] 300 mg PO TID #90 capsule 04/18/17 [Rx] Vitamin E Acid Succinate [Vitamin E] 400 units PO BID #60 tab 04/18/17 [Rx] predniSONE [PredniSONE] 5 mg PO BIDWM #60 tablet 06/26/17 [Rx] Omeprazole [PriLOSEC] 20 mg PO BIDAC #30 cap 07/10/17 [Rx] Ondansetron HCl [Zofran] 4 mg PO Q4H PRN #30 tablet 07/10/17 [Rx] Prochlorperazine Maleate [Compazine] 10 mg PO Q6H PRN #30 tablet 07/10/17 [Rx] Timolol Maleate 0.5% 1 drop RIGHT EYE BID 07/27/17 [History] Dronabinol [Marinol] 5 mg PO BIDLS #60 capsule 07/29/17 [Rx] Dexamethasone [Decadron] 8 mg PO BID 08/07/17 [History] Polyethylene Glycol 3350 17 gm PO DAILY PRN 08/07/17 [History] Amoxicillin [Amoxil] 1,000 mg PO BID #16 capsule 08/15/17 [Rx] Clarithromycin [Biaxin] 500 mg PO BID #16 tablet 08/15/17 [Rx] Omeprazole [PriLOSEC] 40 mg PO BID #16 cap 08/15/17 [Rx] Allergies/Adverse Reactions: 3 Allergy/AdvReac Type Severity Reaction Status Date / Time terbinafine [From Lamisil] Allergy Rash Verified 08/01/17 10:02 Certification: Further, I certify that my clinical findings support that this patient is homebound (i.e. absences from home require considerable and taxing effort and are for medical reasons or rastafari services or infrequently or short duration when for other reasons) because: Homebound Reason: Leaving home requires considerable and taxing effort due to condition Attestation: My signature below is to certify that this patient is under my care and that I, or nurse practitioner, or a physician's automobile mechanic assistant working with me, has a face-to -face encounter with this patient.
== END 2017-08-15 17:20 | disposition home or self-care (01) | DRG 378 ==
LOC: EMEROO 18:37 → 2ANU 18:37 → SUATTDRO 08-08 10:42
PROVIDERS: ADMIT Internal Medicine; ATTEND Internal Medicine
PROC: ENDOCBX (2017-08-09 08:00)

== ENCOUNTER 2017-08-21 10:46 | Inpatient (IN) ==
--- NOTE | 2017-08-21 11:25 | Emergency Department Note ---
Disposition Clinical Impression: Generalized weakness Syncope Qualifiers: Syncope type: unspecified Qualified Code(s): R55 - Syncope and collapse Failure to thrive Qualifiers: Failure to thrive age range: in adult Qualified Code(s): R62.7 - Adult failure to thrive Decubitus ulcer of buttock, stage 1 Qualifiers: Laterality: unspecified laterality Qualified Code(s): L89.301 - Pressure ulcer of unspecified buttock, stage 1 Disposition: Admitted As Inpatient Condition: Fair Referrals: Jimmy Crawford MD [Primary Care Provider] - Forms: ED Satisfaction Letter Time of Disposition: 18:00 Syncope HPI - General Chief Complaint: ED Syncope Stated Complaint: syncope Time Seen by Provider: 08/21/17 10:51 Source: patient Nursing Notes Reviewed: Yes Vital Signs Reviewed: Yes - History of Present Illness HPI Narrative: 87-year-old male who complains of syncopal episode 1/2 hour ago. Patient states she does not remember anything past his home care nurse shown to give him a sponge bath. Patient states that he was standing the entire time and then lost consciousness. Patient's is at bedside and states that patient was sitting the entire time. He went unresponsive suddenly with his head dropping forward but his eyes were open. She states that patient does not eat. He has 28 ounce bottles of ensure daily but that is it, and won't eat anything else because pt states nothing tastes good. Patient has a history of prostate cancer and has been on chemotherapy for the past month. Patient was hospitalized for similar episode a few weeks ago. Patient is under care of Dr. 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 - Related Data Home Medications Medication Instructions Recorded Confirmed Amlodipine Besylate 10 mg PO DAILY 09/01/16 08/21/17 Aspirin [Lo-Dose Aspirin EC] 162 mg PO DAILY 09/01/16 08/21/17 Finasteride [Proscar] 5 mg PO DAILY 09/01/16 08/21/17 Furosemide [Lasix] 20 mg PO Q48H PRN 09/01/16 08/21/17 Losartan Potassium [Cozaar] 100 mg PO DAILY 09/01/16 08/21/17 Multivit-Min/FA/Lycopen/Lutein 1 tab PO DAILY 09/01/16 08/21/17 [Centrum Silver Men Tablet] Potassium Chloride [Klor-Con 10] 40 meq PO DAILY 09/01/16 08/21/17 Pravastatin Sodium [Pravachol] 20 mg PO HS 09/01/16 08/21/17 Terazosin [Hytrin] 5 mg PO HS 09/01/16 08/21/17 Timolol Maleate 0.5% 1 drop RIGHT EYE BID 07/27/17 08/21/17 Dexamethasone [Decadron] 8 mg PO BID 08/07/17 08/21/17 Previous Rx's Medication Instructions Recorded Vitamin E Acid Succinate [Vitamin 400 units PO BID #60 tab 04/18/17 E] predniSONE [PredniSONE] 5 mg PO BIDWM #60 tablet 06/26/17 Omeprazole [PriLOSEC] 20 mg PO BIDAC #30 cap 07/10/17 Dronabinol [Marinol] 5 mg PO BIDLS #60 capsule 07/29/17 Omeprazole [PriLOSEC] 40 mg PO BID #16 cap 08/15/17 Allergies Allergy/AdvReac Type Severity Reaction Status Date / Time terbinafine [From Lamisil] Allergy Rash Verified 08/01/17 10:02 All systems ED: reviewed and negative except as stated. Review of Systems: As Per HPI Constitutional: Denies: fever, weakness ENT ED: Denies: congestion Cardiovascular: Denies: chest pain Respiratory: Denies: cough, dyspnea Gastrointestinal: Denies: abdominal pain, nausea, vomiting, diarrhea Genitourinary: Denies: urgency Past Medical History - Past Medical History Attestation: Yes The following information was validated with the patient. Source: patient, nursing notes reviewed Medical history: Reports: atrial fibrillation, cancer, hypertension Surgical history: Reports: no surgical history Psychiatric history: Reports: no psych history - Social History Smoking Status: Former smoker Smokeless Tobacco Status: No Alcohol use: Reports: none Drug use: Reports: none Physical Exam Vital Signs Temperature 98.0 F 08/21/17 10:47 Pulse Rate 114 08/21/17 10:47 Respiratory Rate 18 08/21/17 10:47 Blood Pressure 113/97 08/21/17 10:47 O2 Sat by Pulse Oximetry 93 08/21/17 10:47 Temperature 98.0 F 08/21/17 10:47 Pulse Rate 114 08/21/17 10:47 Respiratory Rate 18 08/21/17 10:47 Blood Pressure 113/97 08/21/17 10:47 O2 Sat by Pulse Oximetry 93 08/21/17 10:47 CONSTITUTIONAL: Alert and oriented X3, well-nourished, well appearing, in no apparent distress HEAD: Normocephalic; atraumatic. EYES: PERRL, no scleral icterus. NOSE: The nose is normal in appearance without rhinorrhea RESP: Normal chest excursion with respiration; breath sounds clear and equal bilaterally; no wheezes, rhonchi, or rales CARD: Regular rhythm, without murmurs, rub or gallop ABD: Non-distended; non-tender, soft,without rigidity, rebound or guarding SKIN: Normal for age and race; warm and dry; no apparent lesions other than moles all over. NEUROLOGICAL: Patient is alert and oriented times three. Cranial nerves III- XII are intact. Sensory and motor functions are intact. Strength is 5/5 for flexion and extension in all 4 extremities. Patellar DTRS are equal and intact. Finger to nose testing is equal and normal bilaterally. No dysdiadochokinesis - General General appearance: alert, in no apparent distress Course - Reevaluation(s) Reevaluation #1: Patient still doing well. Updated patient and family on current progress of labs which is currently unremarkable. Current plan is for admission Time: 12:37 Vital Signs Temperature 98.0 F 08/21/17 10:47 Pulse Rate 114 08/21/17 10:47 Respiratory Rate 18 08/21/17 10:47 Blood Pressure 113/97 08/21/17 10:47 O2 Sat by Pulse Oximetry 93 08/21/17 10:47 Temperature 98.0 F 08/21/17 10:47 Pulse Rate 119 08/21/17 13:50 Respiratory Rate 17 08/21/17 13:50 Blood Pressure 106/79 08/21/17 13:50 O2 Sat by Pulse Oximetry 97 08/21/17 13:50 Oxygen Delivery Oxygen Delivery Room Air Syncope - MDM Narrative Medical decision making narrative: Syncope and weakness with a history of recent diagnosis of prostate cancer with metastasis to ribs and back concerning for possible infection, worsening anemia , vasovagal syncope, malnutrition leading to failure to thrive widthwise report that patient is not taking any other caloric intake other than 16 ounces of ensure per day. Patient does not complain of pain anywhere except for his tailbone which showed a small 5 mm pressure ulcer stage I. Ulcer was cleaned and Tegaderm and ABD pads placed on it. Patient's stool was nonbloody and light brown. Patient had a recent admission with a GI bleed but CBC shows increase in hemoglobin. I contacted Dr. Hurst's office of oncology to the patient noted he will be admitted. Consult has been placed. Patient's lab workup is fairly unremarkable with most of these values comparably equal to previous tested level values. Only exception is patient's creatinine level which is a new elevation of 1.51 versus previous at 1.13. Patient also has a drop in GFR. Urinalysis was clean. No acute findings on chest x-ray. Current plan is for admission for syncope with generalized weakness, and failure to thrive. Family understands and agrees decision for admission as well as patient. Patient is accepted for admission by Dr. Corley the hospitalist - Lab Data Lab results reviewed: Yes I reviewed the patient's lab results. Lab results narrative: Chest X-Ray 08/21/17 11:39 IMPRESSION: 1. Chronic tortuosity of the thoracic aorta. 2. No acute pulmonary abnormality. D/ / Diego Hernandez MD / Diego Hernandez MD Interpreting Provider: Diego Hernandez MD Head CT 08/21/17 14:50 IMPRESSION: No acute intracranial abnormality. Mild generalized atrophy appropriate for age. Large amount of chronic ischemic white matter changes also age-appropriate. No significant change from the prior study. D/ / Osmin Rubio MD / Osmin Rubio MD Interpreting Provider: Osmin Rubio MD Result diagrams: 08/21/17 11:08 08/21/17 11:08 Lab Results 08/21/17 08/21/17 08/21/17 Range/Units 11:08 11:08 11:08 WBC 9.4 (4.3-11.1) K/mcL RBC 3.49 L (4.19-5.50) M/mcL Hgb 10.0 L (12.9-16.9) g/dL Hct 32.1 L (37.5-50.1) % MCV 92.0 (83.0-100.0) fL MCH 28.7 (28.0-33.3) pg MCHC 31.2 L (31.6-35.5) g/dL RDW 17.9 H (11.5-14.5) % Plt Count 224 (140-400) K/mcL MPV 9.1 L (9.4-12.4) fL Immature Gran % 0.9 (0-4) % Seg Neutrophils % 78.7 % Lymphocytes % 13.8 % Monocytes % 6.5 % Eosinophils % 0.0 % Basophils % 0.1 % Neutrophils # 7.4 (1.6-8.9) K/mcL Lymphocytes # 1.3 (0.6-4.6) K/mcL Monocytes # 0.6 (0.0-1.3) K/mcL Eosinophils # 0.0 (0.0-0.6) K/mcL Basophils # 0.0 (0.0-0.2) K/mcL Sodium 136 (136-145) mEq/L Potassium 4.2 (3.5-5.1) mEq/L Chloride 108 H (98-107) mEq/L Carbon Dioxide 19 L (23-29) mEq/L BUN 19 (8-23) mg/dL Creatinine 1.51 H (0.70-1.30) mg/dL Est GFR ( Amer) 53 L (> 60) Est GFR (Non-Af Amer) 44 L (> 60) BUN/Creatinine Ratio 13 (6-26) Glucose 119 H (70-105) mg/dL Calculated Osmolality 285 (280-300) Calcium 7.0 L (8.6-10.3) mg/dL Troponin I < 0.03 (< 0.04) ng/mL Urine Color (Yellow) Urine Clarity (Clear) Urine pH (5.0-8.0) pH Units Ur Specific [place] (1.010-1.025) Urine Protein (Neg-Trace) mg/dL Urine Glucose (UA) (Normal) mg/dL Urine Ketones (Negative) mg/dL Urine Blood (Negative) Urine Nitrite (Negative) Urine Bilirubin (Negative) Urine Urobilinogen (Normal) mg/dL Ur Leukocyte Esterase (Negative) 08/21/17 Range/Units 13:55 WBC (4.3-11.1) K/mcL RBC (4.19-5.50) M/mcL Hgb (12.9-16.9) g/dL Hct (37.5-50.1) % MCV (83.0-100.0) fL MCH (28.0-33.3) pg MCHC (31.6-35.5) g/dL RDW (11.5-14.5) % Plt Count (140-400) K/mcL MPV (9.4-12.4) fL Immature Gran % (0-4) % Seg Neutrophils % % Lymphocytes % % Monocytes % % Eosinophils % % Basophils % % Neutrophils # (1.6-8.9) K/mcL Lymphocytes # (0.6-4.6) K/mcL Monocytes # (0.0-1.3) K/mcL Eosinophils # (0.0-0.6) K/mcL Basophils # (0.0-0.2) K/mcL Sodium (136-145) mEq/L Potassium (3.5-5.1) mEq/L Chloride (98-107) mEq/L Carbon Dioxide (23-29) mEq/L BUN (8-23) mg/dL Creatinine (0.70-1.30) mg/dL Est GFR ( Amer) (> 60) Est GFR (Non-Af Amer) (> 60) BUN/Creatinine Ratio (6-26) Glucose (70-105) mg/dL Calculated Osmolality (280-300) Calcium (8.6-10.3) mg/dL Troponin I (< 0.04) ng/mL Urine Color Yellow (Yellow) Urine Clarity Clear (Clear) Urine pH 7.0 (5.0-8.0) pH Units Ur Specific [place] 1.009 L (1.010-1.025) Urine Protein Negative (Neg-Trace) mg/dL Urine Glucose (UA) Normal (Normal) mg/dL Urine Ketones Negative (Negative) mg/dL Urine Blood Negative (Negative) Urine Nitrite Negative (Negative) Urine Bilirubin Negative (Negative) Urine Urobilinogen Normal (Normal) mg/dL Ur Leukocyte Esterase Negative (Negative) - Radiology Data Radiology results reviewed: Yes I reviewed the patient's radiology results. Chest X-Ray 08/21/17 11:39 IMPRESSION: 1. Chronic tortuosity of the thoracic aorta. 2. No acute pulmonary abnormality. D/ / Diego Hernandez MD / Diego Hernandez MD Interpreting Provider: Diego Hernandez MD Head CT 08/21/17 14:50 IMPRESSION: No acute intracranial abnormality. Mild generalized atrophy appropriate for age. Large amount of chronic ischemic white matter changes also age-appropriate. No significant change from the prior study. D/ / Osmin Rubio MD / Osmin Rubio MD Interpreting Provider: Osmin Rubio MD - EKG Data EKG attestation: Yes I reviewed and interpreted this EKG. EKG results narrative: EKG taken 08/21/2017 at 1044 hrs. shows A. fib at a rate of 104 bpm with no acute ST elevations or depressions any leads, QRS 1 QT prolongation. Appearance EKG for comparison taken 08/07/2017 also shows A. fib RVR at 127.
[2017-08-21 11:40] LABS: Basophils % 0.1 %; Hematocrit 32.1 % (37.5-50.1); Immature Granulocytes % 0.9 % (0-4); Lymphocytes # 1.3 K/mcL (0.6-4.6); Lymphocytes % 13.8 %; Mean Corpuscular HGB Conc 31.2 g/dL (31.6-35.5); Mean Corpuscular Hemoglobin 28.7 pg (28.0-33.3); Mean Platelet Volume 9.1 fL (9.4-12.4); Monocytes # 0.6 K/mcL (0.0-1.3); Monocytes % 6.5 %; Neutrophils # 7.4 K/mcL (1.6-8.9); Platelet Count 224 K/mcL (140-400); Red Blood Count 3.49 M/mcL (4.19-5.50); Red Cell Distribution Width 17.9 % (11.5-14.5); Segmented Neutrophils % 78.7 %
[2017-08-21 11:56] LABS: Potassium 4.2 mEq/L (3.5-5.1)
--- NOTE | 2017-08-21 12:24 | Emergency Department Note ---
START Narrative - START START: I examined this patient and my medical decision-making was reviewed with the CUT FILE CLERK/PA/Advanced Practice Nurse/Resident Physician. I agree with the documented findings, disposition and treatment plan as described except to the extent set forth below. ED attending: Patient's emergency medicine resident Dr. Brock Forman. Please see copy of this note for H&P evaluation and management and ED disposition. We both had independent [id number] time in contact with this patient. Briefly: A 87-year-old male being treated for prostate cancer has been eating well since he started it which is several months ago had a syncopal episode while sitting in the [facility] facility where getting a sponge bath. Per EMS he was "unresponsive for a few minutes". Patient arrives awake and alert baseline senile dementia. No trauma. Patient had an EKG that shows atrial fibrillation rate controlled. This is not a new finding. Patient will is have his labs and chest x-ray pending. Disposition pending.
[2017-08-21] MEDS ORDERED: 0.9 % Sodium Chloride 500 ML IVC ONE (13:20)
[2017-08-21 14:03] LABS: Bilirubin,Urine Negative (Negative); Blood,Urine Negative (Negative); Clarity,Urine Clear (Clear); Color,Urine Yellow (Yellow); Glucose,Urine (UA) Normal (Normal); Ketones,Urine Negative (Negative); Leukocyte Esterase,Urine Negative (Negative); Nitrite,Urine Negative (Negative); Protein,Urine Negative (Neg-Trace); Specific Gravity,Urine 1.009 (1.010-1.025); Urobilinogen,Urine Normal (Normal)
[2017-08-21] MEDS ORDERED: Naloxone 0.4 MG/ML INJ IVP PRN (14:50)
[2017-08-21] MEDS ORDERED: Dexamethasone 10 MG/ML VIAL PO ONE (14:54)
[2017-08-21] MEDS ORDERED: 0.9 % Sodium Chloride 1,000 ML IVC SCH (15:00)
--- NOTE | 2017-08-21 15:01 | Internal Med History&Physical ---
Date of Encounter: 08/21/17 Time of Encounter: 15:00 Assessment and Plan (1) [id number] kidney injury Current visit: Yes Status: Acute Due to poor oral intake with use of diuretics gentle hdyration Monitor I/Os Continue to monitor Chem Avoid nephrotoxins Qualifiers: Acute renal failure type: unspecified Chronic kidney disease stage: stage 3 (moderate) Qualified Code(s): N17.9 - Acute kidney failure, unspecified; N18.3 - Chronic kidney disease, stage 3 (moderate); N18.3 - Chronic kidney disease, stage 3 (moderate) (2) Syncope Current visit: Yes Status: Acute Possibly due to dehydration and poor oral intake, EKG shows Afib, cardiology eval from prior admission noted-SVTs and PACS noted, no Afib 08/08/17 work up including Echocardiogram revealed EF of 65% with mild diastolic dysfunction and Carotid Doppler preliminarily shows nonstenotic plaque bilaterally Obtain Head CT Fall precautions Keep on tele Qualifiers: Syncope type: unspecified Qualified Code(s): R55 - Syncope and collapse (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 This is recommended the patient continues 6 chemotherapy. He is meant to get Decadron today, and tomorrow after chemotherapy. Follow oncologist's recommendation. (6) Tachycardia Current visit: Yes Status: Acute Patient with known supraventricular tachycardias. Uncontrolled. Titrate since presentation has been between 110-120. EKG shows multiple PACS, as well as SVT, not Afib Continue BB, continue ASA Monitor on tele (7) DVT prophylaxis Current visit: Yes Status: Acute SQ heparin (8) Failure to thrive Current visit: Yes Status: Chronic Food Equipment Service Technician/Nuritionist eval Patient requests to change potassium to elixir, obliged continue ensure with meals Qualifiers: Failure to thrive age range: in adult Qualified Code(s): R62.7 - Adult failure to thrive Internal Medicine - H&P: HPI Chief complaint: I passed out Admitted From: Home Plans for Post Hospital Care: Home History of present illness: Mr. Monroe is 87 year old male with hx of prostate cancer with bone mets, on palliative chemo therapy. Patient was brought to the emergency room by his for an episode of syncope said to have lasted 1-2 minutes. The patient reports he was having a sponge bath while sitting upright, and as soon as he stood upright, he passed out. Pt denies fall or injury. He denies tongue bite or urinary/fecal incontinence. Pt denies feeling of hungry or palpitation prior to syncope. He woke up in the ambulance on the way here The patient denies chest pain, palpitations, shortness of breath, diarrhea, nausea or vomiting. He was just discharged about a week ago after being managed for a bleeding duodenal ulcer. He denies change in bowel or urinary habits. He reports his stools were formed and not bloody. He denies melena. He however reports very poor appetite with minimal oral intake. The rest of review of systems is noncontributory. He has no neurologic deficits. Work up in the ER shows HOLLIE on CKD. We will also repeat a head CT He is full code. Past Med Surg Social Fam HX - Past Medical History Medical history: atrial fibrillation, cancer, hypertension Psychiatric history: no psych history - Past Surgical History Surgical History: no surgical history - Social History Smoking Status: Former smoker Smokeless Tobacco Status: No Alcohol use: none Drug use: none - Family History Mother Living Status: Still Living Hx Family Endocrine Disorder: Yes (DM) Internal Medicine - H&P: Meds Amlodipine Besylate 10 mg PO DAILY 09/01/16 [History] Aspirin [Lo-Dose Aspirin EC] 162 mg PO DAILY 09/01/16 [History] Finasteride [Proscar] 5 mg PO DAILY 09/01/16 [History] Furosemide [Lasix] 20 mg PO Q48H PRN 09/01/16 [History] Losartan Potassium [Cozaar] 100 mg PO DAILY 09/01/16 [History] Multivit-Min/FA/Lycopen/Lutein [Centrum Silver Men Tablet] 1 tab PO DAILY [History] Potassium Chloride [Klor-Con 10] 40 meq PO DAILY 09/01/16 [History] Pravastatin Sodium [Pravachol] 20 mg PO HS 09/01/16 [History] Terazosin [Hytrin] 5 mg PO HS 09/01/16 [History] Vitamin E Acid Succinate [Vitamin E] 400 units PO BID #60 tab 04/18/17 [Rx] predniSONE [PredniSONE] 5 mg PO BIDWM #60 tablet 06/26/17 [Rx] Omeprazole [PriLOSEC] 20 mg PO BIDAC #30 cap 07/10/17 [Rx] Timolol Maleate 0.5% 1 drop RIGHT EYE BID 07/27/17 [History] Dronabinol [Marinol] 5 mg PO BIDLS #60 capsule 07/29/17 [Rx] Dexamethasone [Decadron] 8 mg PO BID 08/07/17 [History] Omeprazole [PriLOSEC] 40 mg PO BID #16 cap 08/15/17 [Rx] 3 Allergy/AdvReac Type Severity Reaction Status Date / Time terbinafine [From Lamisil] Allergy Rash Verified 08/01/17 10:02 All Systems PM: A 10-system review of systems was performed and is negative for pertinent findings except as documented above in the HPI. - Constitutional Constitutional: as per HPI - EENT Eyes: as per HPI Ears: as per HPI Nose, mouth and throat: as per HPI - Cardiovascular Cardiovascular ROS IM: as per HPI - Respiratory Respiratory: as per HPI - Gastrointestinal Gastrointestinal: as per HPI - Musculoskeletal Musculoskeletal ROS IM: as per HPI - Integumentary Integumentary IM: as per HPI - Neurological Neurological ROS: as per HPI - Hematologic/Lymphatic Hematologic/Lymphatic: as per HPI - Constitutional Vitals: Temp Pulse Resp BP Pulse Ox 98.0 F 119 17 106/79 97 08/21/17 10:47 08/21/17 13:50 08/21/17 13:50 08/21/17 13:50 08/21/17 13:50 General appearance: Present: A&O X 3, pleasant, no acute distress - Head Head exam: Present: atraumatic, normocephalic - Eye Eye exam: Present: PERRL, conjuntiva pink, sclera anicteric Pupils: Present: PERRL - Neck Neck exam general surgery: Present: supple, trachea midline. Absent: lymphadenopathy - Respiratory Respiratory exam: Present: CTAB. Absent: accessory muscle use, rales, rhonchi, wheezes - Cardiovascular Cardiovascular exam: Present: RRR, +S1, +S2. Absent: diastolic murmur, gallop, rubs, systolic murmur - GI/Abdominal GI/Abdominal exam: Present: normal bowel sounds, soft, no peritoneal signs. Absent: distended, tenderness - Extremities Exam Extremities exam: Present: warm, radial pulses palpable and symmetrical. Absent : calf tenderness, cyanotic, pedal edema - Neurological Exam Neurological exam: Present: alert, CN II-XII intact, oriented X3, no focal deficits. Absent: pronater drift, facial droop, speech deficit - Skin Skin exam: Present: dry, intact Internal Med - H&P Results - Labs CBC & Chem 7: 08/21/17 11:08 08/21/17 11:08 Labs: Short CBC 08/21/17 Range/Units 11:08 WBC 9.4 (4.3-11.1) K/mcL Hgb 10.0 L (12.9-16.9) g/dL Hct 32.1 L (37.5-50.1) % Plt Count 224 (140-400) K/mcL Neutrophils # 7.4 (1.6-8.9) K/mcL BMP 08/21/17 11:08 Sodium 136 Potassium 4.2 Chloride 108 H Carbon Dioxide 19 L BUN 19 Creatinine 1.51 H Glucose 119 H Calcium 7.0 L Cardiac Enzymes 08/21/17 Range/Units 11:08 Troponin I < 0.03 (< 0.04) ng/mL Urine 08/21/17 Range/Units 13:55 Urine Color Yellow (Yellow) Urine Clarity Clear (Clear) Urine pH 7.0 (5.0-8.0) pH Units Ur Specific [place] 1.009 L (1.010-1.025) Urine Protein Negative (Neg-Trace) mg/dL Urine Glucose (UA) Normal (Normal) mg/dL - Impressions ITS Impressions Chest X-Ray 08/21/17 11:39 IMPRESSION: 1. Chronic tortuosity of the thoracic aorta. 2. No acute pulmonary abnormality. D/ / Diego Hernandez MD / Diego Hernandez MD Interpreting Provider: Diego Hernandez MD
[2017-08-21] MEDS: predniSONE 5 MG TABLET PO SCH (17:50)
--- NOTE | 2017-08-21 17:59 | Electrocardiograph Report ---
[address] [address] Test Date: 2017-08-21 Pat Name: Bola Fer Department: 103 Room: 3A15 Gender: M Second Rigger: ARDEN : [id number] Requested By: Momo Angel Order Number: [id number] Reading MD: Josefina Phillips Measurements Intervals [place] Rate: 104 P: VA: 0 QRS: 42 QRSD: 82 T: 60 QT: 360 QTc: 421 Interpretive Statements BASELINE ARTIFACT LIMITS INTERPRETATION Electronically Signed On 08-21-2017 17:57:45 EST by Josefina Phillips
[2017-08-21] MEDS: *HR* Heparin 5,000 UNIT/ML VIAL SQ SCH (20:58)
[2017-08-22] MEDS ORDERED: traMADol 50 MG TABLET PO PRN (03:24)
[2017-08-22 04:24] LABS: Basophils % 0.1 %; Hematocrit 30.3 % (37.5-50.1); Hemoglobin 9.7 g/dL (12.9-16.9); Immature Granulocytes % 1.1 % (0-4); Lymphocytes % 14.5 %; Mean Corpuscular Volume 90.4 fL (83.0-100.0); Mean Platelet Volume 8.7 fL (9.4-12.4); Monocytes # 0.5 K/mcL (0.0-1.3); Monocytes % 6.6 %; Neutrophils # 5.4 K/mcL (1.6-8.9); Platelet Count 215 K/mcL (140-400); Red Blood Count 3.35 M/mcL (4.19-5.50); Red Cell Distribution Width 17.8 % (11.5-14.5); Segmented Neutrophils % 77.7 %
[2017-08-22 04:33] LABS: Calcium 6.9 mg/dL (8.6-10.3); Potassium 4.2 mEq/L (3.5-5.1)
[2017-08-22] MEDS: *HR* Heparin 5,000 UNIT/ML VIAL SQ SCH ×2 (05:07→14:03)
[2017-08-22] MEDS: predniSONE 5 MG TABLET PO SCH ×2 (08:50→16:55)
[2017-08-22] MEDS: Multivit/Ca/Min/Fe/FA 1 TAB TABLET PO SCH (08:50)
[2017-08-22] MEDS: Finasteride 5 MG TABLET PO SCH (08:50)
[2017-08-22] MEDS: Potassium Chloride Elixir 20 MEQ/15 ML UDC PO SCH (08:50)
[2017-08-22] MEDS ORDERED: amLODIPine 5 MG TABLET PO SCH (09:00)
--- NOTE | 2017-08-22 11:23 | Oncology Inp Consult Note ---
Date of Encounter: 08/22/17 Time of Encounter: 11:17 - Data of Consult Requesting Physician: Momo Angel Primary Care Provider: Jimmy Crawford MD - Consult Narrative History of present illness: Mr. Monroe is a 87 year old male Past Med Surg Social Fam HX - Past Medical History Medical history: atrial fibrillation, cancer, hypertension Psychiatric history: no psych history - Past Surgical History Surgical History: no surgical history - Social History Smoking Status: Former smoker Smokeless Tobacco Status: No Alcohol use: none Drug use: none - Family History Mother Living Status: Still Living Hx Family Endocrine Disorder: Yes (DM) Medications and Allergies Amlodipine Besylate 10 mg PO DAILY 09/01/16 [History] Aspirin [Lo-Dose Aspirin EC] 162 mg PO DAILY 09/01/16 [History] Finasteride [Proscar] 5 mg PO DAILY 09/01/16 [History] Furosemide [Lasix] 20 mg PO Q48H PRN 09/01/16 [History] Losartan Potassium [Cozaar] 100 mg PO DAILY 09/01/16 [History] Multivit-Min/FA/Lycopen/Lutein [Centrum Silver Men Tablet] 1 tab PO DAILY [History] Potassium Chloride [Klor-Con 10] 40 meq PO DAILY 09/01/16 [History] Pravastatin Sodium [Pravachol] 20 mg PO HS 09/01/16 [History] Terazosin [Hytrin] 5 mg PO HS 09/01/16 [History] Vitamin E Acid Succinate [Vitamin E] 400 units PO BID #60 tab 04/18/17 [Rx] predniSONE [PredniSONE] 5 mg PO BIDWM #60 tablet 06/26/17 [Rx] Omeprazole [PriLOSEC] 20 mg PO BIDAC #30 cap 07/10/17 [Rx] Timolol Maleate 0.5% 1 drop RIGHT EYE BID 07/27/17 [History] Dronabinol [Marinol] 5 mg PO BIDLS #60 capsule 07/29/17 [Rx] Dexamethasone [Decadron] 8 mg PO BID 08/07/17 [History] Omeprazole [PriLOSEC] 40 mg PO BID #16 cap 08/15/17 [Rx] 3 Allergy/AdvReac Type Severity Reaction Status Date / Time terbinafine [From Lamisil] Allergy Rash Verified 08/01/17 10:02 Oncology - Exam - Constitutional Vitals: Temp Pulse Resp BP Pulse Ox 98.2 F 86 18 98/53 96 08/22/17 11:08 08/22/17 11:08 08/22/17 11:08 08/22/17 11:08 08/22/17 11:08 Oncology - Results Labs: Short CBC 08/22/17 Range/Units 03:56 WBC 7.0 (4.3-11.1) K/mcL Hgb 9.7 L (12.9-16.9) g/dL Hct 30.3 L (37.5-50.1) % Plt Count 215 (140-400) K/mcL Neutrophils # 5.4 (1.6-8.9) K/mcL BMP 08/22/17 03:56 Sodium 139 Potassium 4.2 Chloride 109 H Carbon Dioxide 21 L BUN 17 Creatinine 1.48 H Glucose 119 H Calcium 6.9 L Consult Discharge Plan - Plan Referrals: Jimmy Crawford MD [Primary Care Provider] -
--- NOTE | 2017-08-22 14:37 | Internal Med Progress Note ---
Date of Encounter: 08/22/17 Time of Encounter: 14:34 - Assessment and plan (1) Ztwxb-qb-dimpbdv kidney injury Current Visit: Yes Status: Acute Assessment and plan: Acute chronic renal failure, with history of chronic kidney disease stage III Likely related to hypotension and dehydration from poor oral intake Hold losartan and amlodipine Start IV fluids Hold also terazosin Qualifiers: Acute renal failure type: unspecified Chronic kidney disease stage: stage 3 (moderate) Qualified Code(s): N17.9 - Acute kidney failure, unspecified; N18.3 - Chronic kidney disease, stage 3 (moderate); N18.3 - Chronic kidney disease, stage 3 (moderate) (2) Syncope Current Visit: Yes Status: Acute Assessment and plan: Syncopal episode likely secondary to orthostatic hypotension/hypovolemia due to poor oral intake Check orthostatics, fall precautions, start IV fluids Qualifiers: Syncope type: unspecified Qualified Code(s): R55 - Syncope and collapse (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 Assessment and plan: Endoscopy during the last admission showed a possible duodenal source of bleeding Continue omeprazole twice a day (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 No fevers or chills, had an episode of diarrhea earlier today but no abdominal discomfort - Constitutional Vitals: Temp Pulse Resp BP Pulse Ox 98.2 F 86 18 98/53 96 08/22/17 11:08 08/22/17 11:08 08/22/17 11:08 08/22/17 11:08 08/22/17 11:08 General appearance: Present: A&O X 3, pleasant, no acute distress, underweight - Head Head exam: Present: atraumatic, normocephalic - Eye Eye exam: Present: PERRL, conjuntiva pink, sclera anicteric Pupils: Present: PERRL - Neck Neck exam general surgery: Present: supple, trachea midline. Absent: lymphadenopathy - Respiratory Respiratory exam: Present: CTAB. Absent: accessory muscle use, rales, rhonchi, wheezes - Cardiovascular Cardiovascular exam: Present: RRR, +S1, +S2. Absent: diastolic murmur, gallop, rubs, systolic murmur - GI/Abdominal GI/Abdominal exam: Present: normal bowel sounds, soft, no peritoneal signs. Absent: distended, tenderness - Extremities Exam Extremities exam: Present: warm, radial pulses palpable and symmetrical. Absent : calf tenderness, cyanotic, pedal edema - Neurological Exam Neurological exam: Present: CN II-XII intact, oriented X3, no focal deficits. Absent: pronater drift, facial droop, speech deficit - Skin Skin exam: Present: dry, intact Internal Medicine: Result - Labs CBC & Chem 7: 08/22/17 03:56 08/22/17 03:56 Labs: Short CBC 08/22/17 Range/Units 03:56 WBC 7.0 (4.3-11.1) K/mcL Hgb 9.7 L (12.9-16.9) g/dL Hct 30.3 L (37.5-50.1) % Plt Count 215 (140-400) K/mcL Neutrophils # 5.4 (1.6-8.9) K/mcL BMP 08/22/17 03:56 Sodium 139 Potassium 4.2 Chloride 109 H Carbon Dioxide 21 L BUN 17 Creatinine 1.48 H Glucose 119 H Calcium 6.9 L Consult Discharge Plan - Plan Referrals: Jimmy Crawford MD [Primary Care Provider] -
--- NOTE | 2017-08-22 14:41 | Oncology Inp Consult Note ---
Date of Encounter: 08/23/17 Time of Encounter: 17:00 Assessment and Plan (1) Syncope Status: Acute Assessment and plan: He came in with hypotension improved with IV hydration. He was feeling better and more energetic than night saw him in the evening Qualifiers: Syncope type: unspecified Qualified Code(s): R55 - Syncope and collapse (2) Prostate cancer Status: Chronic Assessment and plan: 1. Castrate resistant metastatic prostate cancer. He is due to get cycle 2 Taxotere 60 mg/m 08/22/2017 It discussed with him in detail. He has dehydration and hypotension. We will wait one more day and will try to give cycle 2 as an inpatient on 08/23/2014 2. Anemia hemoglobin stable at 9.7 and levels B12 folate TSH normal. Will do serum protein electrophoresis light chain hemolysis workup line some of this could be secondary to prostate cancer involvement of bone marrow. So possible GI bleed Chronic kidney disease may be playing a role 3. Chronic kidney disease stage III. Current creatinine 1.5 - Data of Consult Requesting Physician: Momo Angel Primary Care Provider: Jimmy Crawford MD - Consult Narrative Reason for consult: Metastatic prostate cancer History of present illness: Mr. Monroe is a 87 year old male admitted with possible syncopal. Hypotension possible dehydration and atrial fibrillation. Neuro Heart rate is improved from 100-83. EGD 08/09/2017 showed clotted blood in the duodenum did not possible GI loss. Currently anemia stable hemoglobin 9.7 he had also chronic kidney disease stage III aggravated by dehydration Oncological history [place], N0, M1 stage IV metastatic prostate cancer diagnosis April 2016 Routine PSA was around 6 in 2013 when up to 22 in 2014 Bone scan on 05/20/16 shows skeletal metastases. Mostly ribs and some in the spine. He has no pain from the metastasis Pathology report on 05/10/16 of Prostate left apex shows prostate adenocarcinoma , group 1 of 5, gleson score 3+3=6 involving 5% of one of three cores. Rest of 5 cores were negative. MRI pelvis w/wo contrast on 04/26/16 shows indeterminate 1.5cm vague T2 hypointense lesion centered within the central gland. Some rectal thickening. No pelvic adenopathy Treatment Lupron 6 months dose cycle one on 05/24/2016. So started on bicalutamide 50 mg 1 tablet by mouth daily. Bicalutamide stopped sometime July 2016 because of hot flashes He was given Megace for short duration by Dr. Sousa was stopped subsequently . He continued to have hot flashes. Flaxseed all and vitamin D does not help much toward Neurontin 300 mg by mouth at bedtime for a week then increase to 3 times a day starting 12/30/2016 PSA on 08/25/16 was 3.20 as compared to 40.96 on 04/12/16 Ketoconazole 400 mg by mouth 3 times a day from 05/15/2017 to 07/10/2017. Stopped due to progression I could not get him Abiraterone or Enzalutamide due to high co-pay Next Treatment- Taxotere 60 mg/m IV every 3 weeks. Dose will be increased to 75 mg/m as tolerated. Cycle one 08/01/2017 Planned number of Doses #10 with prednisone 5 mg twice a day He has delay in starting treatment because he had profound anemia . This likely represent bone marrow involvement by prostate cancer. Some of the anemia could be secondary to GI bleed EGD 08/09/2017 showed clotted blood in the duodenum did not possible GI loss Further imaging CT abdomen and pelvis without contrast 07/04/2017 showed progression of bony lesions. No pathological fracture. 3.3 cm left kidney cyst. A bone scan on 07/04/2017 showed bilateral progressive bony metastasis This is more pronounced and pelvis and bilateral femur. Also progression in the spine and other areas. He has bilateral hip pain and currently on a wheelchair. Would consider radiation oncology consult in the future for bilateral hip pain and possible palliative radiation Progression of disease He has significant decline in clinical condition the last 4-6 weeks. Significant weight loss last from 80 kg on April 2017-68 kg today Deconditioned on a wheelchair. Progressive anemia. Hemoglobin dropped to around 7.5. This is probably secondary to bone marrow involvement by prostate cancer Hypotension improved after stopping blood pressure pills and IV hydration Supportive treatment [facility] had Denosumab 120 mg subcutaneous monthly for 4 more doses last one in 12/14/2016 Currently every 12 weeks Past Med Surg Social Fam HX - Past Medical History Medical history: atrial fibrillation, cancer, hypertension Psychiatric history: no psych history - Past Surgical History Surgical History: no surgical history - Social History Smoking Status: Former smoker Smokeless Tobacco Status: No Alcohol use: none Drug use: none - Family History Mother Living Status: Still Living Hx Family Endocrine Disorder: Yes (DM) Medications and Allergies Amlodipine Besylate 10 mg PO DAILY 09/01/16 [History] Aspirin [Lo-Dose Aspirin EC] 162 mg PO DAILY 09/01/16 [History] Finasteride [Proscar] 5 mg PO DAILY 09/01/16 [History] Furosemide [Lasix] 20 mg PO Q48H PRN 09/01/16 [History] Losartan Potassium [Cozaar] 100 mg PO DAILY 09/01/16 [History] Multivit-Min/FA/Lycopen/Lutein [Centrum Silver Men Tablet] 1 tab PO DAILY [History] Potassium Chloride [Klor-Con 10] 40 meq PO DAILY 09/01/16 [History] Pravastatin Sodium [Pravachol] 20 mg PO HS 09/01/16 [History] Terazosin [Hytrin] 5 mg PO HS 09/01/16 [History] Vitamin E Acid Succinate [Vitamin E] 400 units PO BID #60 tab 04/18/17 [Rx] predniSONE [PredniSONE] 5 mg PO BIDWM #60 tablet 06/26/17 [Rx] Omeprazole [PriLOSEC] 20 mg PO BIDAC #30 cap 07/10/17 [Rx] Timolol Maleate 0.5% 1 drop RIGHT EYE BID 07/27/17 [History] Dronabinol [Marinol] 5 mg PO BIDLS #60 capsule 07/29/17 [Rx] Dexamethasone [Decadron] 8 mg PO BID 08/07/17 [History] Omeprazole [PriLOSEC] 40 mg PO BID #16 cap 08/15/17 [Rx] 3 Allergy/AdvReac Type Severity Reaction Status Date / Time terbinafine [From Lamisil] Allergy Rash Verified 08/01/17 10:02 Review of systems: More alert and oriented. Energy level has improved since admission. Denied chest pain. No major nausea or vomiting. Denied diarrhea Oncology - Exam - Constitutional Vitals: Temp Pulse Resp BP Pulse Ox 98.2 F 86 18 98/53 96 08/22/17 11:08 08/22/17 11:08 08/22/17 11:08 08/22/17 11:08 08/22/17 11:08 Exam: GENERAL: Alert and oriented, well appearing. Mild fatigue Mental Status: Affect appropriate for circumstances HEENT: Sclerae anicteric. No mucositis or thrush. No other oral or pharyngeal lesions or erythema. Skin: No rashes or petechiae. No evidence of skin malignancy Lymph nodes: No cervical, supraclavicular, axillary, or inguinal adenopathy. Lungs: Air entry normal with normal breath sounds. No rhonchi or wheezing Cardiovascular: Regular rate and rhythm. No skipped beats Abdomen: Soft, nontender; no organomegaly or masses palpable. Extremities: No edema. No calf swelling or tenderness. No joint deformity. Neurologic: Alert, cranial nerves II-XII intact; normal gait; no focal weakness or sensory abnormalities Oncology - Results Labs: Short CBC 08/22/17 Range/Units 03:56 WBC 7.0 (4.3-11.1) K/mcL Hgb 9.7 L (12.9-16.9) g/dL Hct 30.3 L (37.5-50.1) % Plt Count 215 (140-400) K/mcL Neutrophils # 5.4 (1.6-8.9) K/mcL BMP 08/22/17 03:56 Sodium 139 Potassium 4.2 Chloride 109 H Carbon Dioxide 21 L BUN 17 Creatinine 1.48 H Glucose 119 H Calcium 6.9 L Consult Discharge Plan - Plan Referrals: Jimmy Crawford MD [Primary Care Provider] -
[2017-08-22] MEDS ORDERED: 0.9 % Sodium Chloride 1,000 ML IVC SCH (14:45)
[2017-08-22] MEDS: Cholecalciferol (D-3) 1,000 UNIT TABLET PO SCH (14:52)
--- NOTE | 2017-08-22 19:54 | Electrocardiograph Report ---
[address] [address] Test Date: 2017-08-21 Pat Name: Bola Monroe Department: 103 Room: 3A15 Gender: M Drafter Seismograph: ARDEN : 1930 Requested By: Momo Angel Order Number: [id number] Reading MD: Farida Mireles Measurements Intervals Chapman Rate: 112 P: TN: 0 QRS: -6 QRSD: 79 T: -29 QT: 347 QTc: 414 Interpretive Statements ATRIAL FIBRILLATION WITH RAPID VENTRICULAR RESPONSE WITH ABERRANT CONDUCTION OR VENTRICULAR PREMATURE COMPLEXES ABNORMAL RHYTHM ECG Electronically Signed On 08-22-2017 19:53:06 EST by Farida Mireles
[2017-08-23] MEDS ORDERED: SODIUM CHLORIDE EXCEL BG 0.9% IV SCH
[2017-08-23] MEDS ORDERED: *HR* Promethazine 25 MG/ML VIAL IV PRN
[2017-08-23] MEDS ORDERED: *HR* EPINEPHrine 1 MG/ML AMPUL SQ PRN
[2017-08-23] MEDS ORDERED: Famotidine 20 MG/2 ML VIAL IV PRN
[2017-08-23] MEDS ORDERED: Dexamethasone 10 MG/ML VIAL IV PRN
[2017-08-23] MEDS ORDERED: *HR* LORazepam 2 MG/ML VIAL IV PRN
[2017-08-23] MEDS ORDERED: DOCETAXEL IV SCH
[2017-08-23] MEDS ORDERED: 0.9 % Sodium Chloride 500 ML IVC SCH
[2017-08-23] MEDS ORDERED: Prochlorperazine 10 MG/2 ML VIAL IV PRN
[2017-08-23] MEDS ORDERED: Hydrocortisone Sodium Succ 100 MG/2 ML VIAL IV PRN
[2017-08-23 05:15] LABS: Hematocrit 30.6 % (37.5-50.1); Hemoglobin 9.5 g/dL (12.9-16.9); Mean Corpuscular Hemoglobin 28.4 pg (28.0-33.3); Mean Corpuscular Volume 91.3 fL (83.0-100.0); Platelet Count 207 K/mcL (140-400); Red Blood Count 3.35 M/mcL (4.19-5.50); Red Cell Distribution Width 17.9 % (11.5-14.5)
[2017-08-23 05:18] LABS: Albumin 2.8 g/dL (3.5-5.7); Calcium 6.5 mg/dL (8.6-10.3); Potassium 5.1 mEq/L (3.5-5.1)
[2017-08-23] MEDS: Multivit/Ca/Min/Fe/FA 1 TAB TABLET PO SCH (07:57)
[2017-08-23] MEDS: Finasteride 5 MG TABLET PO SCH (07:57)
[2017-08-23] MEDS: Cholecalciferol (D-3) 1,000 UNIT TABLET PO SCH (07:57)
[2017-08-23] MEDS: predniSONE 5 MG TABLET PO SCH (07:57)
[2017-08-23] MEDS: Potassium Chloride Elixir 20 MEQ/15 ML UDC PO SCH (07:58)
--- NOTE | 2017-08-23 08:39 | Discharge Summary ---
<Harshad Tanner - Last Filed: 08/23/17 08:59> Date of Encounter: 08/23/17 Time of Encounter: 08:36 - Discharge Diagnosis (1) Syncope Priority: Primary Status: Acute Qualifiers: Syncope type: unspecified Qualified Code(s): R55 - Syncope and collapse (2) Osvna-jw-gicfsej kidney injury Priority: Secondary Status: Acute Qualifiers: Acute renal failure type: unspecified Chronic kidney disease stage: stage 3 (moderate) Qualified Code(s): N17.9 - Acute kidney failure, unspecified; N18.3 - Chronic kidney disease, stage 3 (moderate); N18.3 - Chronic kidney disease, stage 3 (moderate) (3) Anemia due to blood loss Priority: Secondary Status: Acute (4) Duodenal ulcer Priority: Secondary Status: Chronic (5) Prostate cancer metastatic to bone Priority: Secondary Status: Chronic (6) Hypertension Priority: Secondary Status: Chronic Qualifiers: Hypertension type: essential hypertension Qualified Code(s): I10 - Essential (primary) hypertension - Discharge Medications Home Medications: Aspirin [Lo-Dose Aspirin EC] 162 mg PO DAILY 09/01/16 [History] Finasteride [Proscar] 5 mg PO DAILY 09/01/16 [History] Furosemide [Lasix] 20 mg PO Q48H PRN 09/01/16 [History] Multivit-Min/FA/Lycopen/Lutein [Centrum Silver Men Tablet] 1 tab PO DAILY [History] Potassium Chloride [Klor-Con 10] 40 meq PO DAILY 09/01/16 [History] Pravastatin Sodium [Pravachol] 20 mg PO HS 09/01/16 [History] Terazosin [Hytrin] 5 mg PO HS 09/01/16 [History] Vitamin E Acid Succinate [Vitamin E] 400 units PO BID #60 tab 04/18/17 [Rx] predniSONE [PredniSONE] 5 mg PO BIDWM #60 tablet 06/26/17 [Rx] Omeprazole [PriLOSEC] 20 mg PO BIDAC #30 cap 07/10/17 [Rx] Timolol Maleate 0.5% 1 drop RIGHT EYE BID 07/27/17 [History] Dronabinol [Marinol] 5 mg PO BIDLS #60 capsule 07/29/17 [Rx] Dexamethasone [Decadron] 8 mg PO BID 08/07/17 [History] Omeprazole [PriLOSEC] 40 mg PO BID #16 cap 08/15/17 [Rx] Allergies/Adverse Reactions: 3 Allergy/AdvReac Type Severity Reaction Status Date / Time terbinafine [From Lamisil] Allergy Rash Verified 08/01/17 10:02 Date of admission: 08/22/17 14:57 Primary care physician: Jimmy Crawford MD Discharging clinician: Harshad Tanner Anticipated date of discharge: 08/23/17 - Patient Status Disposition: Home Health Service Condition: Fair Overall status at discharge: patient is progressing back to baseline - Discharge Instructions Follow Up With: Jimmy Crawford MD [Primary Care Provider] - 08/29/17 1:15 pm Bartolome Hurst MD [Partnered Physician] - 09/12/17 9:00 am (09:30 Chemo.) Additional Instructions: Please follow up with your PCP and oncologist within 1-2 weeks of discharge Stop taking Norvasc - Diet and Activity Activity: increase activity as tolerated Diet: advance to your usual diet Hospital course: Mr. Monroe is a 87 year old male who presented with syncope, he was able to fall in the bed and did not hit his head. He states that he was at home and was standing for a few minutes when he passed out suddenly. He does have history of prostate cancer with metastases to the bone and is currently undergoing chemotherapy at [facility]. He was recently admitted to this facility just a week ago where he had syncope and also GI bleed due to duodenal ulcer Patient currently denies any bloody bowel movements and his hemoglobin has remained stable. He did have some HOLLIE on CKD and was borderline hypotensive , and his blood pressure medications were held and he was started on fluids. His blood pressure responded and his creatinine returned back to baseline. Patient will undergo another round of chemotherapy as an inpatient today and will be discharged back with home health. He is to stop his losartan and Norvasc upon discharge and will resume them once he is seen by his PCP if his blood pressures are stable. - Time Spent with Patient Total time spent providing and/or coordinating discharge services: - Constitutional Vitals: Temp Pulse Resp BP Pulse Ox 98.5 F 95 16 104/68 95 08/23/17 06:48 08/23/17 06:48 08/23/17 06:48 08/23/17 06:48 08/23/17 06:48 General appearance: Present: cooperative, pleasant, no acute distress, underweight - Head Head exam: Present: atraumatic, normocephalic - Eye Eye exam: Present: PERRL, conjuntiva pink, sclera anicteric - Neck Neck exam general surgery: Present: supple, trachea midline. Absent: lymphadenopathy - Respiratory Respiratory exam: Present: CTAB. Absent: accessory muscle use, rales, rhonchi, wheezes - Cardiovascular Cardiovascular exam: Present: RRR, +S1, +S2. Absent: diastolic murmur, gallop, rubs, systolic murmur - GI/Abdominal GI/Abdominal exam: Present: normal bowel sounds, soft, no peritoneal signs. Absent: distended, tenderness - Extremities Exam Extremities exam: Present: warm, radial pulses palpable and symmetrical. Absent : calf tenderness, cyanotic, pedal edema - Neurological Exam Neurological exam: Present: alert, no focal deficits. Absent: facial droop, speech deficit - Skin Skin exam: Present: dry, intact - VTE Documentation of Mechanical Device: Intermittent pneumatic compression device <Momo Angel - Last Filed: 08/23/17 14:05> Date of Encounter: 08/23/17 - Discharge Diagnosis (1) Pfnuo-ca-dmuuodt kidney injury Status: Acute Qualifiers: Acute renal failure type: unspecified Chronic kidney disease stage: stage 3 (moderate) Qualified Code(s): N17.9 - Acute kidney failure, unspecified; N18.3 - Chronic kidney disease, stage 3 (moderate); N18.3 - Chronic kidney disease, stage 3 (moderate) (2) Syncope Status: Acute Qualifiers: Syncope type: unspecified Qualified Code(s): R55 - Syncope and collapse (3) Duodenal ulcer Status: Chronic (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 Status: Chronic (5) Anemia due to blood loss Status: Acute (6) Hypocalcemia Status: Acute (7) Dehydration Status: Resolved Date of admission: 08/22/17 14:57 Primary care physician: Jimmy Crawford MD Hospital course: Mr. Monroe is a 87 year old male - Time Spent with Patient Total time spent providing and/or coordinating discharge services: - Constitutional Vitals: Temp Pulse Resp BP Pulse Ox 98.3 F 91 14 110/70 99 08/23/17 10:47 08/23/17 10:47 08/23/17 10:47 08/23/17 10:47 08/23/17 10:47 - Attending Attestation hold blood pressure medications until appointment with primary care physician. Castrate resistant metastatic prostate cancer. He is due to get cycle 2 Taxotere 60 mg/m 08/22/2017 chemotherapy as outpatient time spent : 40 min I examined this patient and my medical decision-making was reviewed with the Resident Physician. I agree with the documented findings, disposition and treatment plan as described except to the extent set forth below.
--- NOTE | 2017-08-23 08:41 | Physician Discharge Referral ---
<Harshad Tanner - Last Filed: 08/23/17 09:04> Home Health/Hosp Referral Info Transfer to: Home Health Attending Provider: Dr. Cardenas Provider in Charge Post Discharge: PCP - Diagnosis (1) Syncope Priority: Primary Status: Acute (2) Hgnur-al-uqfzvqw kidney injury Priority: Secondary Status: Acute (3) Anemia due to blood loss Priority: Secondary Status: Acute (4) Duodenal ulcer Priority: Secondary Status: Chronic (5) Prostate cancer metastatic to bone Priority: Secondary Status: Chronic (6) Hypertension Priority: Secondary Status: Chronic - Respiratory Orders Smoking Cessation: Smoking cessation has been advised. For more information, call the [place] Tobacco Quit Line at 4-336-AGVN-NOW. - Diet/Nutrition Diet/Nutrition Orders: Cardiac - Activity Activity Orders: Walker - Services Needed Following services are medically necessary services: Nursing, Home Health Aide, Physical Therapy, Occupational Therapy - Transfer Medications Home Medications: Aspirin [Lo-Dose Aspirin EC] 162 mg PO DAILY 09/01/16 [History] Finasteride [Proscar] 5 mg PO DAILY 09/01/16 [History] Furosemide [Lasix] 20 mg PO Q48H PRN 09/01/16 [History] Multivit-Min/FA/Lycopen/Lutein [Centrum Silver Men Tablet] 1 tab PO DAILY [History] Potassium Chloride [Klor-Con 10] 40 meq PO DAILY 09/01/16 [History] Pravastatin Sodium [Pravachol] 20 mg PO HS 09/01/16 [History] Terazosin [Hytrin] 5 mg PO HS 09/01/16 [History] Vitamin E Acid Succinate [Vitamin E] 400 units PO BID #60 tab 04/18/17 [Rx] predniSONE [PredniSONE] 5 mg PO BIDWM #60 tablet 06/26/17 [Rx] Omeprazole [PriLOSEC] 20 mg PO BIDAC #30 cap 07/10/17 [Rx] Timolol Maleate 0.5% 1 drop RIGHT EYE BID 07/27/17 [History] Dronabinol [Marinol] 5 mg PO BIDLS #60 capsule 07/29/17 [Rx] Dexamethasone [Decadron] 8 mg PO BID 08/07/17 [History] Omeprazole [PriLOSEC] 40 mg PO BID #16 cap 08/15/17 [Rx] Allergies/Adverse Reactions: 3 Allergy/AdvReac Type Severity Reaction Status Date / Time terbinafine [From Lamisil] Allergy Rash Verified 08/01/17 10:02 Certification: Further, I certify that my clinical findings support that this patient is homebound (i.e. absences from home require considerable and taxing effort and are for medical reasons or orthodox services or infrequently or short duration when for other reasons) because: Homebound Reason: Patient requires assistance of a person or device to safely leave home Attestation: My signature below is to certify that this patient is under my care and that I, or nurse practitioner, or a physician's assistant professor working with me, has a face-to -face encounter with this patient. <Momo Angel - Last Filed: 08/23/17 14:05> - Diagnosis (1) Hcmta-il-fctbluw kidney injury Status: Acute (2) Syncope Status: Acute (3) Duodenal ulcer Status: Chronic (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 Status: Chronic (5) Anemia due to blood loss Status: Acute (6) Hypocalcemia Status: Acute (7) Dehydration Status: Resolved - Respiratory Orders Smoking Cessation: Smoking cessation has been advised. For more information, call the [place] Tobacco Quit Line at 0-933-TTIG-NOW. Certification: Further, I certify that my clinical findings support that this patient is homebound (i.e. absences from home require considerable and taxing effort and are for medical reasons or orthodox services or infrequently or short duration when for other reasons) because: Attestation: My signature below is to certify that this patient is under my care and that I, or nurse practitioner, or a physician's assistant professor working with me, has a face-to -face encounter with this patient.
[2017-08-23] MEDS ORDERED: Dexamethasone 10 MG/ML VIAL IV ONE (10:00)
[2017-08-23] MEDS ORDERED: Famotidine 20 MG/2 ML VIAL IV ONE (10:00)
[2017-08-23 15:38] VITALS: BP 114/69
== END 2017-08-23 16:34 | disposition home health service (06) | DRG 682 ==
LOC: 3ANU 10:46 → EMEROO 10:46 → 3ANU 15:44
PROVIDERS: ADMIT Internal Medicine; ATTEND Internal Medicine

== ENCOUNTER 2017-10-02 11:53 | Inpatient (IN) ==
[2017-10-02] MEDS ORDERED: 0.9 % Sodium Chloride 1,000 ML IVC ONE (12:24)
--- NOTE | 2017-10-02 12:50 | Emergency Department Note ---
Disposition Clinical Impression: Generalized weakness, HOLLIE (acute kidney injury), Pleural effusion, Prostate cancer metastatic to bone Hypotension Qualifiers: Hypotension type: unspecified hypotension type Qualified Code(s): I95.9 - Hypotension, unspecified Disposition: Admitted As Inpatient Condition: Fair Time of Disposition: 16:53 General Adult HPI - General Chief complaint: ED General Medical Stated complaint: Hypotension Time Seen by Provider: 10/02/17 12:03 Source: patient Limitations: no limitations Nursing Notes Reviewed: Yes Vital Signs Reviewed: Yes - History of Present Illness HPI Narrative: 87 year old male with a history of Afib, prostate cancer, and duodenal ulcers presenting for hypotension after his home health aid found his blood pressure around 73/45 at home. Patient states he was admitted to the hospital for a syncopal event in July and was found to be anemic secondary to a duodenal ulcer bleed. He was in the [facility] following his discharge and returned home last Monday and has been receiving home health assistance since. Patient denies any dizziness, nausea, vomiting, change in appetite, change in BM/ urination, hematochezia, hematuria, chest pain, SOB, and pain anywhere. Patient is currently being seen and treated for metastatic prostate cancer by the [facility]. Onset (ago): [facility] [employer] Pain Scale: 0 Improves with: nothing Worsens with: nothing Associated symptoms: Reports: denies other symptoms. Denies: chest pain, cough , loss of appetite, nausea/vomiting Treatments Prior to Arrival: none - Related Data Home Medications Medication Instructions Recorded Confirmed Aspirin [Lo-Dose Aspirin EC] 162 mg PO DAILY 09/01/16 10/02/17 Finasteride [Proscar] 5 mg PO DAILY 09/01/16 10/02/17 Multivit-Min/FA/Lycopen/Lutein 1 tab PO DAILY 09/01/16 10/02/17 [Centrum Silver Men Tablet] Potassium Chloride [Klor-Con 10] 40 meq PO DAILY 09/01/16 10/02/17 Pravastatin Sodium [Pravachol] 20 mg PO HS 09/01/16 10/02/17 Timolol Maleate 0.5% 1 drop RIGHT EYE BID 07/27/17 10/02/17 Dexamethasone [Decadron] 8 mg PO BID 08/07/17 10/02/17 Magnesium Hydroxide [Milk of 30 ml PO DAILY PRN 09/12/17 10/02/17 Magnesia] Mirtazapine 7.5 mg PO HS 09/12/17 10/02/17 Loperamide HCl [Imodium A-D] 2 mg PO Q4H PRN 10/02/17 10/02/17 Previous Rx's Medication Instructions Recorded Vitamin E Acid Succinate [Vitamin 400 units PO BID #60 tab 04/18/17 E] predniSONE [PredniSONE] 5 mg PO BIDWM #60 tablet 06/26/17 Omeprazole [PriLOSEC] 40 mg PO BID #16 cap 08/15/17 Amiodarone [Cordarone] 200 mg PO BID tablet 08/30/17 Calcium Carbonate [Tums] 1,000 mg PO QID tab.chew 08/30/17 Dronabinol [Marinol] 5 mg PO BIDLS 30 Days #60 capsule 08/30/17 Furosemide [Lasix] 20 mg PO Q48H PRN #10 08/30/17 Saliva Stimulant [Biotene 1 spray PO Q2H PRN bottle 08/30/17 Moisturizing Rinse] Tamsulosin [Flomax] 0.4 mg PO HS capsule 08/30/17 Allergies Allergy/AdvReac Type Severity Reaction Status Date / Time terbinafine [From Lamisil] Allergy Rash Verified 10/02/17 12:00 All systems ED: reviewed and negative except as stated. Past Medical History - Past Medical History Attestation: Yes The following information was validated with the patient. Source: patient Medical history: Reports: atrial fibrillation, cancer, hypertension Surgical history: Reports: no surgical history Psychiatric history: Reports: no psych history - Social History Smoking Status: Never smoker Smokeless Tobacco Status: No Alcohol use: Reports: none Drug use: Reports: none Physical Exam - General Limitations: no limitations General appearance: alert, in no apparent distress, appears intoxicated - Head Head exam: atraumatic, normocephalic, normal inspection - Eye Eye exam: Present: normal appearance, PERRL, EOMI - ENT ENT exam: normal exam, normal oropharynx, mucous membranes moist - Neck Neck exam: Present: normal inspection, full ROM, trachea midline - Chest Chest inspection: Present: normal inspection, symmetric chest wall rise - Respiratory Respiratory exam: Present: normal lung sounds bilaterally - Cardiovascular Cardiovascular exam: Present: regular rate, normal rhythm, normal heart sounds - Abdominal Exam Abdominal exam: Present: soft, Non-Tender. Absent: tenderness, distention, guarding, rebound, rigidity - Rectal Exam Hand Stonecutter present during exam: Yes Rectal exam: Present: normal rectal tone, heme (-) stool - Extremities Exam Extremities exam: Present: normal inspection, full ROM. Absent: tenderness, pedal edema - Back Exam Back exam: Present: normal inspection, full ROM. Absent: tenderness - Neurological Exam Neurological exam: Present: alert, oriented X3. Absent: motor sensory deficit - Psychiatric Psychiatric exam: Present: normal affect, normal mood - Skin Skin exam: Present: warm, dry, intact, normal color Course Course Narrative: Patient seen and examined. Asymptomatic hypotension. Repeat manual blood pressure was also 80s over 50s. Basic lab work, chest x-ray, EKG, urine analysis ordered. We will rule out any source of infection. We will give a 1 L fluid bolus and reassessed. - Reevaluation(s) Reevaluation #1: Patient's chest x-ray initially showed a possible small pneumothorax. A repeat x-ray also showed this. A CT scan of the chest was ordered which shows some fluid overload and increased size of pleural effusions. Patient appears to have pulmonary vascular congestion but be intravascularly depleted. Will admit for generalized weakness, increased pulmonary congestion, history of present illness, dehydration. Discussed with hospitalist Dr. powell was accepted patient for admission. Time: 16:23 Vital Signs Temperature 98.5 F 10/02/17 11:55 Pulse Rate 81 10/02/17 11:55 Respiratory Rate 18 10/02/17 11:55 Blood Pressure 73/48 10/02/17 11:55 O2 Sat by Pulse Oximetry 96 10/02/17 11:55 Temperature 98.5 F 10/02/17 11:55 Pulse Rate 106 10/02/17 16:00 Respiratory Rate 18 10/02/17 16:00 Blood Pressure 102/66 10/02/17 16:00 O2 Sat by Pulse Oximetry 98 10/02/17 16:00 Oxygen Delivery Oxygen Delivery Room Air Medical Decision Making - Medical Records Medical records reviewed: Yes I reviewed the patient's medical records. - Lab Data Lab results reviewed: Yes I reviewed the patient's lab results. Result diagrams: 10/02/17 13:25 10/02/17 13:25 Lab Results 10/02/17 10/02/17 10/02/17 Range/Units 13:25 13:25 13:28 WBC 5.2 (4.3-11.1) K/mcL RBC 2.60 L (4.19-5.50) M/mcL Hgb 7.6 L (12.9-16.9) g/dL Hct 24.6 L (37.5-50.1) % MCV 94.6 (83.0-100.0) fL MCH 29.2 (28.0-33.3) pg MCHC 30.9 L (31.6-35.5) g/dL RDW 20.4 H (11.5-14.5) % Plt Count 193 (140-400) K/mcL MPV 8.7 L (9.4-12.4) fL Immature Gran % 1.6 (0-4) % Seg Neutrophils % 73.6 % Lymphocytes % 18.4 % Monocytes % 6.4 % Eosinophils % 0.0 % Basophils % 0.0 % Neutrophils # 3.8 (1.6-8.9) K/mcL Lymphocytes # 1.0 (0.6-4.6) K/mcL Monocytes # 0.3 (0.0-1.3) K/mcL Eosinophils # 0.0 (0.0-0.6) K/mcL Basophils # 0.0 (0.0-0.2) K/mcL Nucleated RBCs/100 WBC 0.8 H (0) /100 WBC Sodium 146 H (136-145) mEq/L Potassium 4.9 (3.5-5.1) mEq/L Chloride 113 H (98-107) mEq/L Carbon Dioxide 18 L (23-29) mEq/L BUN 47 H (8-23) mg/dL Creatinine 2.03 H (0.70-1.30) mg/dL Est GFR ( Amer) 38 L (> 60) Est GFR (Non-Af Amer) 31 L (> 60) BUN/Creatinine Ratio 23 (6-26) Glucose 91 (70-105) mg/dL Calculated Osmolality 314 H (280-300) Calcium 6.7 L (8.6-10.3) mg/dL Troponin I 0.03 (< 0.04) ng/mL Urine Color Yellow (Yellow) Urine Clarity Clear (Clear) Urine pH 6.5 (5.0-8.0) pH Units Ur Specific [place] 1.017 (1.010-1.025) Urine Protein Trace (Neg-Trace) mg/dL Urine Glucose (UA) Normal (Normal) mg/dL Urine Ketones Negative (Negative) mg/dL Urine Blood Negative (Negative) Urine Nitrite Negative (Negative) Urine Bilirubin Negative (Negative) Urine Urobilinogen Normal (Normal) mg/dL Ur Leukocyte Esterase Negative (Negative) Urine Microscopic RBC 0-3 (0-3) per hpf Urine Microscopic WBC 0-3 (0-3) per hpf Ur Squamous Epith Cells Moderate H (None-Few) per lpf Urine Bacteria None Seen (None-Few) per hpf Hyaline Casts None Seen (None-Few) per lpf Ur Culture Indicated? NO (NO) - Radiology Data Radiology results reviewed: Yes I reviewed the patient's radiology results. Chest X-Ray 10/02/17 12:47 IMPRESSION: Small right-sided pneumothorax. No evidence for tension D/ / Georges Tamez MD / Georges Tamez MD Interpreting Provider: Georges Tamez MD - EKG Data EKG #1 EKG attestation: Yes I reviewed and interpreted this EKG. EKG results narrative: EKG done at 1242 shows sinus tachycardia with a rate of [address] elevation or depression. Normal axis. Attestation Statement - Attestation Attestation: I, Shashank Bowles DO, examined this patient [id number] and my medical decision-making was reviewed with Sarah Nelson DO , Resident Physician. I agree with the documented findings, disposition and treatment plan as described except to the extent set forth below. Please see my progress notes for details. 87-year-old male presents emergency room at the request of his home health aide. Patient was found to have hypotension at home today. Patient denies any recent illnesses. Denies any trauma injury or symptoms. Currently is denying chest pain shortness of breath headache vision changes nausea vomiting or diarrhea. Denies any fevers or chills. Patient has had generalized malaise that is been getting worse over the last several days to weeks. On physical exam this is a thin frail appearing gentleman who is currently in chemotherapy treatment for cancer. His scheduled last dose of chemotherapy is for tomorrow. Patient is under the care of Dr. Hurst. Fluid resuscitation and evaluation for infectious etiology was discussed. Chest x-ray urinalysis CBC chemistry troponin and BNP will be resulted at this time. Patient feels like he is dehydrated. Patient has not been eating or drinking as much as he normally does. She will require further medical management symptomatic control. She was advised that he may require admission and discussed this at length. He wants to have the workup completed and discussed the findings before agreeing to admission at this point. Patient is very weak and does have what appears to be symptomatic hypotension at this time. Disposition pending a full workup and treatment course. See detailed documentation of physical exam, medical intervention, medical decision-making and disposition and the resident physician's note. No critical care provider this patient's treatment course at this time 1435 Patient has not appears to be an acute exacerbation of renal insufficiency. His hemoglobin is 7.6 but is fluctuated up and down between 7.3 chloride 8.5 over multiple evaluations during his chemotherapy treatment. Patient does have. hyperNatremia and hyperchloremia. These appear to be new issues at this time. Patient otherwise is still being evaluated for possible pneumothoraces that was noted on x-rays. CT imaging is pending. Disposition will most likely be admission for symptomatic hypotension. We will continue to monitor him until treatment course is completed. 1615 Patient is found to have what appears to be exertional dyspnea weakness secondary to anemia and acute renal insufficiency with dehydration. Patient will be admitted to hospitals for definitive management and treatment course STABILIZATION of those acute on chronic presentation.
[2017-10-02 13:51] LABS: Bilirubin,Urine Negative (Negative); Blood,Urine Negative (Negative); Clarity,Urine Clear (Clear); Color,Urine Yellow (Yellow); Glucose,Urine (UA) Normal (Normal); Ketones,Urine Negative (Negative); Leukocyte Esterase,Urine Negative (Negative); Nitrite,Urine Negative (Negative); PH,Urine 6.5 pH Units (5.0-8.0); Protein,Urine Trace mg/dL (Neg-Trace); Specific Gravity,Urine 1.017 (1.010-1.025); Urobilinogen,Urine Normal (Normal)
[2017-10-02 13:55] LABS: Bacteria,Urine None Seen per hpf (None-Few); Hyaline Casts,Urine None Seen per lpf (None-Few); RBC,Urine 0-3 per hpf (0-3); Squamous Epithelial Cell,Urine Moderate per lpf (None-Few); WBC,Urine 0-3 per hpf (0-3)
[2017-10-02 14:06] LABS: Hematocrit 24.6 % (37.5-50.1); Immature Granulocytes % 1.6 % (0-4); Lymphocytes % 18.4 %; Mean Corpuscular HGB Conc 30.9 g/dL (31.6-35.5); Mean Corpuscular Hemoglobin 29.2 pg (28.0-33.3); Mean Corpuscular Volume 94.6 fL (83.0-100.0); Mean Platelet Volume 8.7 fL (9.4-12.4); Monocytes # 0.3 K/mcL (0.0-1.3); Monocytes % 6.4 %; Neutrophils # 3.8 K/mcL (1.6-8.9); Nucleated Red Blood Cells 0.8 /100 WBC (0); Platelet Count 193 K/mcL (140-400); Red Cell Distribution Width 20.4 % (11.5-14.5); Segmented Neutrophils % 73.6 %
[2017-10-02 14:13] LABS: Troponin I 0.03 ng/mL (< 0.04)
[2017-10-02 14:18] LABS: Hemoglobin 7.6 g/dL (12.9-16.9)
[2017-10-02 14:32] LABS: Calcium 6.7 mg/dL (8.6-10.3); Potassium 4.9 mEq/L (3.5-5.1)
[2017-10-02] MEDS ORDERED: Naloxone 0.4 MG/ML INJ IVP PRN (17:32)
[2017-10-02] MEDS ORDERED: Saliva Stimulant 100ml BOTTLE PO PRN (17:35)
--- NOTE | 2017-10-02 17:40 | Internal Med History&Physical ---
<Mike Adams - Last Filed: 10/02/17 19:22> Date of Encounter: 10/02/17 Time of Encounter: 17:00 Assessment and Plan (1) Hypotension Current visit: Yes Status: Acute - Blood pressure as low 73/48 in ED. - Improves with 1L NS bolus received in ED with blood pressure 102/66. - Likely volume depletion secondary to poor oral intake. - Continue hydration with IV NS. - Also resume dexamethasone for the questionable adrenal insufficiency. - Admit for IV hydration and close monitoring. Qualifiers: Hypotension type: other hypotension type Qualified Code(s): I95.89 - Other hypotension (2) [id number] kidney injury Current visit: No Status: Acute - SCr 2.03 / eGFR 31, worse compared to SCr 1.14 / eGFR >60 on 09/14/17. - Likely pre-renal secondary to dehydration from poor oral intake. - Hydrate with IV NS. - Avoid nephrotoxin. - Continue to monitor renal function and electrolytes. Qualifiers: Acute renal failure type: unspecified Chronic kidney disease stage: stage 3 (moderate) Qualified Code(s): N17.9 - Acute kidney failure, unspecified; N18.3 - Chronic kidney disease, stage 3 (moderate); N18.3 - Chronic kidney disease, stage 3 (moderate) (3) Prostate cancer metastatic to bone Current visit: Yes Status: Chronic - Stage IV prostate cancer with metastases to bilateral pelvis and hips. - Patient has chemotherapy scheduled tomorrow at [facility]. - Will inform oncology regarding patient's hospital stay. (4) Anemia Current visit: Yes Status: Chronic - Hgb 7.6 on admission, which dropped from 8.2 on 09/14/17. - Likely related to chemotherapy. - Continue to monitor H&H closely. Consider pRBC transfusion if Hgb < 7. Qualifiers: Anemia type: other cause Other causes of anemia: antineoplastic chemotherapy Qualified Code(s): D64.81 - Anemia due to antineoplastic chemotherapy; T45.1X5A - Adverse effect of antineoplastic and immunosuppressive drugs, initial encounter; T45.1X5A - Adverse effect of antineoplastic and immunosuppressive drugs, initial encounter (5) History of atrial fibrillation Current visit: Yes Status: Chronic - Known long-term history of A-fib, currently on amiodarone. - Not on anticoagulation due history of GI bleed from duodenal ulcer. - Continue amiodarone. (6) History of duodenal ulcer Current visit: Yes Status: Chronic - Patient denies hematochezia or melena at this time. - Continue omeprazole. (7) DVT prophylaxis Current visit: No Status: Acute - SQ heparin. (8) Tachycardia Current visit: No Status: Acute - EKG showed sinus tachycardia. Likely related to current dehydration - Continue hydration with IV fluid. Internal Medicine - H&P: HPI Chief complaint: Hypotension Admitted From: Emergency Dept Plans for Post Hospital Care: Home History of present illness: Mr. Monroe is a 87 year old male with stage IV prostate cancer and metastatses to bones, on chemotherapy with last one three weeks ago, A-fib on amiodarone, CKD stage 3 and history of duodenal ulcer. Patient was sent by his home health aide to ED for hypotension. Patient's blood pressure was noted to be as low as 73/48. Patient received 1L of NS and blood pressure increased to 102/66. Patient denies having any lightheadedness/dizziness or vision change when his blood pressure was low this morning. Patient admits poor oral intake recently due to poor appetite and denies nausea/vomiting. Patient admits some dyspnea on exertion but not at rest nor orthopnea. Patient denies fever, chills, chest pain , abdominal pain, hematochezia, melena, easy bruising. Patient is full code. Patient is open to talk to palliative care. Past Med Surg Social Fam HX - Past Medical History Medical history: atrial fibrillation, cancer, hypertension Psychiatric history: no psych history - Past Surgical History Surgical History: cataract, orthopedic, other (right foot joint replacement) - Social History Smoking Status: Never smoker Smokeless Tobacco Status: No Alcohol use: none Drug use: none - Family History Mother Living Status: Still Living Hx Family Endocrine Disorder: Yes (DM) Internal Medicine - H&P: Meds Aspirin [Lo-Dose Aspirin EC] 162 mg PO DAILY 09/01/16 [History] Finasteride [Proscar] 5 mg PO DAILY 09/01/16 [History] Multivit-Min/FA/Lycopen/Lutein [Centrum Silver Men Tablet] 1 tab PO DAILY [History] Potassium Chloride [Klor-Con 10] 40 meq PO DAILY 09/01/16 [History] Pravastatin Sodium [Pravachol] 20 mg PO HS 09/01/16 [History] Vitamin E Acid Succinate [Vitamin E] 400 units PO BID #60 tab 04/18/17 [Rx] predniSONE [PredniSONE] 5 mg PO BIDWM #60 tablet 06/26/17 [Rx] Timolol Maleate 0.5% 1 drop RIGHT EYE BID 07/27/17 [History] Dexamethasone [Decadron] 8 mg PO BID 08/07/17 [History] Omeprazole [PriLOSEC] 40 mg PO BID #16 cap 08/15/17 [Rx] Amiodarone [Cordarone] 200 mg PO BID tablet 08/30/17 [Rx] Calcium Carbonate [Tums] 1,000 mg PO QID tab.chew 08/30/17 [Rx] Dronabinol [Marinol] 5 mg PO BIDLS 30 Days #60 capsule 08/30/17 [Rx] Furosemide [Lasix] 20 mg PO Q48H PRN #10 08/30/17 [Rx] Saliva Stimulant [Biotene Moisturizing Rinse] 1 spray PO Q2H PRN bottle [Rx] Tamsulosin [Flomax] 0.4 mg PO HS capsule 08/30/17 [Rx] Magnesium Hydroxide [Milk of Magnesia] 30 ml PO DAILY PRN 09/12/17 [History] Mirtazapine 7.5 mg PO HS 09/12/17 [History] Loperamide HCl [Imodium A-D] 2 mg PO Q4H PRN 10/02/17 [History] 3 Allergy/AdvReac Type Severity Reaction Status Date / Time terbinafine [From Lamisil] Allergy Rash Verified 10/02/17 12:00 All Systems PM: A 10-system review of systems was performed and is negative for pertinent findings except as documented above in the HPI. - Constitutional Constitutional: anorexia, no chills, no fever(s) - EENT Eyes: no change in vision Ears: no decreased hearing Nose, mouth and throat: no dysphagia - Cardiovascular Cardiovascular ROS IM: no chest pain, no edema, no lightheadedness - Respiratory Respiratory: dyspnea (on exertion), no cough - Gastrointestinal Gastrointestinal: loose stools, no abdominal pain, no nausea, no vomiting - Genitourinary Genitourinary ROS male: no difficulty urinating, no dysuria, no hematuria - Integumentary Integumentary IM: no erythema, no rash - Neurological Neurological ROS: no numbness, no tingling - Hematologic/Lymphatic Hematologic/Lymphatic: no easy bleeding, no easy bruising - Constitutional Vitals: Temp Pulse Resp BP Pulse Ox 98.5 F 106 20 102/66 98 10/02/17 11:55 10/02/17 16:00 10/02/17 17:38 10/02/17 17:38 10/02/17 16:00 General appearance: Present: cachectic, A&O X 3, answers questions appropriately - Head Head exam: Present: normal inspection - Eye Eye exam: Present: EOMI, sclera anicteric - Neck Neck exam general surgery: Present: normal inspection, supple, trachea midline - Respiratory Respiratory exam: Present: rales (bibasilar) - Cardiovascular Cardiovascular exam: Present: tachycardia - GI/Abdominal GI/Abdominal exam: Present: normal bowel sounds, soft. Absent: tenderness - Extremities Exam Extremities exam: Present: warm. Absent: cyanotic, pedal edema - Neurological Exam Neurological exam: Present: alert, no focal deficits, strengths equal and symetr throughout. Absent: facial droop, speech deficit - Skin Skin exam: Present: intact, rash, warm Internal Med - H&P Results - Labs CBC & Chem 7: 10/02/17 18:12 10/02/17 13:25 <Kang Blanco - Last Filed: 10/03/17 12:25> Date of Encounter: 10/03/17 Internal Medicine - H&P: HPI History of present illness: Mr. Monroe is a 87 year old male All Systems PM: A 10-system review of systems was performed and is negative for pertinent findings except as documented above in the HPI. - Constitutional Vitals: Temp Pulse Resp BP Pulse Ox 98.8 F 83 17 100/69 99 10/03/17 11:33 10/03/17 11:33 10/03/17 11:33 10/03/17 11:33 10/03/17 11:33 Internal Med - H&P Results - Labs CBC & Chem 7: 10/03/17 08:07 10/03/17 08:07 - Attending Attestation I examined this patient and my medical decision-making was reviewed with the Resident Physician. I agree with the documented findings, disposition and treatment plan as described except to the extent set forth below.
[2017-10-02 18:27] LABS: Basophils % 0.2 %; Hematocrit 25.1 % (37.5-50.1); Hemoglobin 7.8 g/dL (12.9-16.9); Immature Granulocytes % 1.8 % (0-4); Lymphocytes % 18.2 %; Mean Corpuscular HGB Conc 31.1 g/dL (31.6-35.5); Mean Corpuscular Hemoglobin 28.8 pg (28.0-33.3); Mean Corpuscular Volume 92.6 fL (83.0-100.0); Monocytes # 0.2 K/mcL (0.0-1.3); Monocytes % 3.7 %; Neutrophils # 4.3 K/mcL (1.6-8.9); Nucleated Red Blood Cells 0.4 /100 WBC (0); Platelet Count 181 K/mcL (140-400); Red Blood Count 2.71 M/mcL (4.19-5.50); Red Cell Distribution Width 20.1 % (11.5-14.5); Segmented Neutrophils % 76.1 %
[2017-10-02] MEDS: 0.9 % Sodium Chloride 1,000 ML IVC SCH (18:48)
--- NOTE | 2017-10-02 20:23 | Electrocardiograph Report ---
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
[2017-10-02] MEDS: *HR* Amiodarone 200 MG TABLET PO SCH (21:59)
[2017-10-03 05:08] LABS: Hematocrit 21.7 % (37.5-50.1); Hemoglobin 6.8 g/dL (12.9-16.9); Immature Granulocytes % 1.6 % (0-4); Lymphocytes # 0.8 K/mcL (0.6-4.6); Lymphocytes % 15.1 %; Mean Corpuscular HGB Conc 31.3 g/dL (31.6-35.5); Mean Corpuscular Hemoglobin 29.1 pg (28.0-33.3); Mean Corpuscular Volume 92.7 fL (83.0-100.0); Mean Platelet Volume 9.1 fL (9.4-12.4); Monocytes # 0.2 K/mcL (0.0-1.3); Monocytes % 4.8 %; Neutrophils # 3.9 K/mcL (1.6-8.9); Nucleated Red Blood Cells 0.4 /100 WBC (0); Platelet Count 181 K/mcL (140-400); Red Blood Count 2.34 M/mcL (4.19-5.50); Red Cell Distribution Width 20.2 % (11.5-14.5); Segmented Neutrophils % 78.5 %
[2017-10-03 05:13] LABS: Calcium 6.2 mg/dL (8.6-10.3); Potassium 5.7 mEq/L (3.5-5.1)
[2017-10-03] MEDS: *HR* Heparin 5,000 UNIT/ML VIAL SQ SCH ×2 (05:21→18:00)
[2017-10-03] MEDS: Aspirin Enteric Coated 81 MG Tablet PO SCH (07:44)
[2017-10-03] MEDS: *HR* Amiodarone 200 MG TABLET PO SCH ×2 (07:44→20:21)
[2017-10-03] MEDS: Finasteride 5 MG TABLET PO SCH (07:44)
[2017-10-03] MEDS: 0.9 % Sodium Chloride 1,000 ML IVC SCH (07:45)
[2017-10-03 08:53] LABS: Magnesium 1.8 mg/dL (1.6-2.6); Phosphorous 3.7 mg/dL (2.7-4.5)
--- NOTE | 2017-10-03 08:55 | Internal Med Progress Note ---
<Mike Adams - Last Filed: 10/03/17 13:43> Date of Encounter: 10/03/17 Time of Encounter: 08:30 - Assessment and plan (1) Hypotension Current Visit: Yes Status: Acute Assessment and plan: - Blood pressure as low 73/48 in ED. - Did response to 1L NS bolus received in ED with blood pressure 102/66. - Likely volume depletion secondary to poor oral intake. - Improves as blood pressure 95/67 this morning. - Continue hydration with IV fluid. - Continue dexamethasone for the questionable adrenal insufficiency. - Admit for IV hydration and close monitoring. Qualifiers: Hypotension type: other hypotension type Qualified Code(s): I95.89 - Other hypotension (2) Pmnww-tx-hbwqdgu kidney injury Current Visit: No Status: Acute Assessment and plan: - SCr 2.03 / eGFR 38 on admission, worse compared to SCr 1.14 / eGFR >60 on 09/14. - Likely pre-renal secondary to dehydration from poor oral intake. - Improves as SCr 1.82 / eGFR 43 today. - Hydrate with IV fluid. - Avoid nephrotoxin. - Continue to monitor renal function and electrolytes. 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 - [facility] had been notified about patient's hospitalization and will cancel scheduled chemotherapy today. - Palliative care consulted and appreciate discussion with patient regarding goal of care and other options. (4) Anemia Current Visit: Yes Status: Chronic Assessment and plan: - Hgb 7.6 on admission, which dropped from 8.2 on 09/14/17. - Likely due to decreased production secondary to bone marrow suppression from chemotherapy and CKD - No reported hematochezia or melena but given his history of duodenal ulcer, will check stool occult test. - Hgb 6.8 this morning but it's likely lab error given it's 7.6 on repeat. - Type & cross for potential need of pRBC transfusion. - Continue to monitor H&H closely. Consider pRBC transfusion if Hgb < 7. Qualifiers: Anemia type: other cause Other causes of anemia: antineoplastic chemotherapy Qualified Code(s): D64.81 - Anemia due to antineoplastic chemotherapy; T45.1X5A - Adverse effect of antineoplastic and immunosuppressive drugs, initial encounter; T45.1X5A - Adverse effect of antineoplastic and immunosuppressive drugs, initial encounter (5) History of atrial fibrillation Current Visit: Yes Status: Chronic Assessment and plan: - Known long-term history of A-fib, currently on amiodarone. - Not on anticoagulation give his history of GI bleed from duodenal ulcer. - Continue amiodarone. 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 - Continue omeprazole. (7) DVT prophylaxis Current Visit: No Status: Acute Assessment and plan: - SQ heparin. - Subjective Interval history: Patient was seen and examined this morning. Patient has no complaint except some dyspnea on exertion. Patient denies dyspnea at rest, chest pain, lightheadedness, fever, chills. Patient reports last bowel movement was yesterday morning and no visible blood. I informed patient that [facility] had been notified regarding his hospitalization and no chemotherapy today. Patient verbalized his understanding. - Constitutional Vitals: Temp Pulse Resp BP Pulse Ox 98.6 F 82 16 95/67 100 10/03/17 07:28 10/03/17 07:28 10/03/17 07:28 10/03/17 07:28 10/03/17 07:28 General appearance: Present: cachectic, A&O X 3, answers questions appropriately - Head Head exam: Present: normal inspection - Eye Eye exam: Present: EOMI - Neck Neck exam general surgery: Present: normal inspection, supple, trachea midline - Respiratory Respiratory exam: Present: CTAB - Cardiovascular Cardiovascular exam: Present: RRR, +S1, +S2 - GI/Abdominal GI/Abdominal exam: Present: normal bowel sounds, soft. Absent: tenderness - Extremities Exam Extremities exam: Absent: cyanotic, pedal edema - Neurological Exam Neurological exam: Present: alert, no focal deficits. Absent: facial droop, speech deficit - Skin Skin exam: Present: dry, warm Internal Medicine: Result - Labs CBC & Chem 7: 10/03/17 08:07 10/03/17 08:07 Labs: Short CBC 10/02/17 10/03/17 Range/Units 18:12 04:12 WBC 5.7 5.0 (4.3-11.1) K/mcL Hgb 7.8 L 6.8 L (12.9-16.9) g/dL Hct 25.1 L 21.7 L (37.5-50.1) % Plt Count 181 181 (140-400) K/mcL Neutrophils # 4.3 3.9 (1.6-8.9) K/mcL BMP 10/03/17 04:12 Sodium 143 Potassium 5.7 H Chloride 118 H Carbon Dioxide 15 L BUN 48 H Creatinine 1.88 H Glucose 171 H Calcium 6.2 L Consult Discharge Plan - Plan Referrals: Jimmy Crawford MD [Primary Care Provider] - (SENT WEB REQUEST ON 10-03-17 @ 1523) <Jono Corley - Last Filed: 10/03/17 14:40> Date of Encounter: 10/03/17 - Assessment and plan (1) Hypotension Current Visit: Yes Status: Acute Qualifiers: Hypotension type: other hypotension type Qualified Code(s): I95.89 - Other hypotension (2) Dokjq-yb-xksschc kidney injury Current Visit: No Status: Acute Qualifiers: Acute renal failure type: unspecified Chronic kidney disease stage: stage 3 (moderate) Qualified Code(s): N17.9 - Acute kidney failure, unspecified; N18.3 - Chronic kidney disease, stage 3 (moderate); N18.3 - Chronic kidney disease, stage 3 (moderate) (3) Prostate cancer metastatic to bone Current Visit: Yes Status: Chronic (4) Anemia Current Visit: Yes Status: Chronic Qualifiers: Anemia type: other cause Other causes of anemia: antineoplastic chemotherapy Qualified Code(s): D64.81 - Anemia due to antineoplastic chemotherapy; T45.1X5A - Adverse effect of antineoplastic and immunosuppressive drugs, initial encounter; T45.1X5A - Adverse effect of antineoplastic and immunosuppressive drugs, initial encounter (5) History of atrial fibrillation Current Visit: Yes Status: Chronic (6) History of duodenal ulcer Current Visit: Yes Status: Chronic (7) DVT prophylaxis Current Visit: No Status: Acute - Constitutional Vitals: Temp Pulse Resp BP Pulse Ox 98.8 F 83 17 100/69 99 10/03/17 11:33 10/03/17 11:33 10/03/17 11:33 10/03/17 11:33 10/03/17 11:33 Internal Medicine: Result - Labs CBC & Chem 7: 10/03/17 08:07 10/03/17 08:07 - Attending Attestation I have independently seen and examined this patient on 10/03 87 M admitted and being managed for hypotension and associated HOLLIE on CKD. He has a PMH of Afib, duondenal ulcer, CKD III, metastatic prostate CA and is on chemo. His blood pressure has been improving n IV fluid hydration He denies new complains and a bit worried about missing his chemo today Physical exam : AAOX3, atraumatic, conjunctiva is clear and anicteric, chest is CTAB, abdomen is soft and not tender, no pedal edema. Labs and imaging reviewed labs drawn at 4 AM shows acute drop in hemoglobin as well as worsening kidney function, suspect lab error, repeat labs done this afternoon shows hemoglobin is 7.6 which is around his baseline. Renal function is improving. Continue current care. Discontinue IV fluids later today and monitor blood pressure. Palliative care evaluation noted and appreciated. Rest as in the resident physician's documentation
[2017-10-03 09:11] LABS: Hematocrit 24.8 % (37.5-50.1); Hemoglobin 7.6 g/dL (12.9-16.9); Lymphocytes # 0.8 K/mcL (0.6-4.6); Lymphocytes % 14.9 %; Mean Corpuscular HGB Conc 30.6 g/dL (31.6-35.5); Mean Corpuscular Hemoglobin 28.8 pg (28.0-33.3); Mean Corpuscular Volume 93.9 fL (83.0-100.0); Mean Platelet Volume 8.9 fL (9.4-12.4); Monocytes # 0.2 K/mcL (0.0-1.3); Monocytes % 3.9 %; Neutrophils # 4.5 K/mcL (1.6-8.9); Platelet Count 205 K/mcL (140-400); Red Blood Count 2.64 M/mcL (4.19-5.50); Red Cell Distribution Width 20.2 % (11.5-14.5); Segmented Neutrophils % 79.2 %
[2017-10-03 09:30] LABS: Calcium 6.1 mg/dL (8.6-10.3)
--- NOTE | 2017-10-03 12:56 | Palliative - Consult Note ---
Date of Encounter: 10/03/17 Time of Encounter: 11:00 - Assessment and Plan (1) Goals of care, counseling/discussion Current Visit: Yes Status: Acute Assessment and plan: Evaluated patient for goals of care and code status. Patient wishes to remain full code and continue treatment regimen for prostate cancer. Wishes to return to [facility] for continued rehab on discharge. Patient has advanced directions , both living will and DPOA; to bring copies. Palliative care will sign off, as goals of consult met; re-consult if further services needed. (2) Anemia Current Visit: Yes Status: Chronic Assessment and plan: Serial H&H being performed. Most likely a result from chemotherapy. Follow recommendations from hospitalist regarding blood replacement as deemed necessary. Qualifiers: Anemia type: other cause Other causes of anemia: antineoplastic chemotherapy Qualified Code(s): D64.81 - Anemia due to antineoplastic chemotherapy; T45.1X5A - Adverse effect of antineoplastic and immunosuppressive drugs, initial encounter; T45.1X5A - Adverse effect of antineoplastic and immunosuppressive drugs, initial encounter (3) CKD (chronic kidney disease) stage 3, GFR 30-59 ml/min Current Visit: No Status: Chronic Assessment and plan: Renal function improving with hydration. Continue IV fluids as ordered. (4) Prostate cancer Current Visit: No Status: Chronic (5) Pain, cancer Current Visit: Yes Status: Acute Assessment and plan: Evaluated for pain, patient denies pain. Home medication was reviewed and takes no home pain medications. (6) Debility Current Visit: Yes Status: Acute Assessment and plan: Patient continues to have general weakness, recently had skill nursing rehabilitation, ambulating with cane and walker. Patient reports falling first day home from rehab. Wishes to return to rehab for continued therapy. Will consult PT/OT for evaluation and treatment. (7) Lack of appetite Current Visit: Yes Status: Acute Assessment and plan: Patient continues to report some lack of appetite. Swallowing well. Patient desires to continue personal control over management. May consider appetite enhancement as patient requests. Continue Ensure supplement with meals. Palliative-CN HPI - Data of Consult Patient: new to practice Consult date: 10/02/17 Requesting Physician: Jono Corley MD Primary Care Provider: Jimmy Crawford MD - Consult Narrative Palliative Care/Comfort Measures: Palliative care Reason for consult: Stage 4 prostate Cancer. Goals of care. History of present illness: Mr. Monroe is a 87 year old male arrived to ER for hypotension, BP 73/48, treated via a 1L NS bolus and BP stabilized to 90s/60s. Chest X-ray showed: Small right-sided pneumothorax, with no evidence for tension. CT showed: No pneumothorax. Features suggesting mild volume overload, including new small pericardial effusion, increased small bilateral pleural effusions and soft tissue anasarca. Indeterminate enlarged right axillary lymph node. Unchanged skeletal sclerotic metastatic disease. Tracheobronchial secretions and esophageal features. Mild basilar predominant bronchiectasis is nonspecific. Low -attenuation cardiac blood pool. Mild centrilobular and paraseptal emphysema. Mild pulmonary tear enlargement. Patient reports slight difficulty with swallowing potassium pills, but foods are tolerated well. PMH: Stage 4 Prostate Cancer, Atrial Fibrillation, Chronic Kidney Disease, COPD-emphysema, Duodenal cancer, and anemia. Sees Dr. Winslow for oncology treatment (chemotherapy for prostate cancer). Reports having a history of CPR and wishes to continue to be a full code. Denies pain, anxiety, and nausea. Has had issues with lack of appetite, but has improved through determination to eat more. Patient reports having advanced directives and confirmed was asked to bring in a copy. This palliative care consult is for goals of care/code status discussion. Mr. Monroe was quiet and dismissive on arrival. Remained distant during assessment. Patient laying in bed with eyes open watching baseball game upon entry, did agree to turn TV off and meet with Palliative care team. Did open up when discussing sons, Baudilio and Bola, whom live in [place]. , Lula, to be on way to visit. At end of visit, patient reconfirmed wishes to remain a full code and continue current treatment plan. CC: Jono Corley MD Past Med Surg Social Fam HX - Past Medical History Medical history: atrial fibrillation, cancer, hypertension Psychiatric history: no psych history - Past Surgical History Surgical History: cataract, orthopedic, other (right foot joint replacement) - Social History Smoking Status: Never smoker Smokeless Tobacco Status: No Alcohol use: none Drug use: none - Family History Mother Living Status: Still Living Hx Family Endocrine Disorder: Yes (DM) Medications and Allergies Aspirin [Lo-Dose Aspirin EC] 162 mg PO DAILY 09/01/16 [History] Finasteride [Proscar] 5 mg PO DAILY 09/01/16 [History] Multivit-Min/FA/Lycopen/Lutein [Centrum Silver Men Tablet] 1 tab PO DAILY [History] Potassium Chloride [Klor-Con 10] 40 meq PO DAILY 09/01/16 [History] Pravastatin Sodium [Pravachol] 20 mg PO HS 09/01/16 [History] Vitamin E Acid Succinate [Vitamin E] 400 units PO BID #60 tab 04/18/17 [Rx] predniSONE [PredniSONE] 5 mg PO BIDWM #60 tablet 06/26/17 [Rx] Timolol Maleate 0.5% 1 drop RIGHT EYE BID 07/27/17 [History] Dexamethasone [Decadron] 8 mg PO BID 08/07/17 [History] Omeprazole [PriLOSEC] 40 mg PO BID #16 cap 08/15/17 [Rx] Amiodarone [Cordarone] 200 mg PO BID tablet 08/30/17 [Rx] Calcium Carbonate [Tums] 1,000 mg PO QID tab.chew 08/30/17 [Rx] Dronabinol [Marinol] 5 mg PO BIDLS 30 Days #60 capsule 08/30/17 [Rx] Furosemide [Lasix] 20 mg PO Q48H PRN #10 08/30/17 [Rx] Saliva Stimulant [Biotene Moisturizing Rinse] 1 spray PO Q2H PRN bottle [Rx] Tamsulosin [Flomax] 0.4 mg PO HS capsule 08/30/17 [Rx] Magnesium Hydroxide [Milk of Magnesia] 30 ml PO DAILY PRN 09/12/17 [History] Mirtazapine 7.5 mg PO HS 09/12/17 [History] Loperamide HCl [Imodium A-D] 2 mg PO Q4H PRN 10/02/17 [History] 3 Allergy/AdvReac Type Severity Reaction Status Date / Time terbinafine [From Lamisil] Allergy Rash Verified 10/02/17 12:00 All systems: reviewed and no additional remarkable complaints except as stated ( reports some loss of appetite and recent falls.) - Constitutional Constitutional ROS PAL: decreased appetite, frequent falls Palliative Care-Exam - Constitutional Vitals: Temp Pulse Resp BP Pulse Ox 98.8 F 83 17 100/69 99 10/03/17 11:33 10/03/17 11:33 10/03/17 11:33 10/03/17 11:33 10/03/17 11:33 General appearance: Present: no acute distress - Head Head Exam: Present: normal inspection - Eye Eye exam: Present: normal appearance - ENT ENT exam: Present: mucous membranes dry - Neck Neck exam: Present: full ROM - Respiratory Respiratory exam: Present: CTAB - Cardiovascular Cardiovascular exam: Present: +S1, +S2 - Extremities Exam Extremities exam: Present: full ROM Internal Medicine - CN: Reslt - Labs CBC & Chem 7: 10/03/17 08:07 10/03/17 08:07 Consult Discharge Plan - Plan Referrals: Jimmy Crawford MD [Primary Care Provider] - (SENT WEB REQUEST ON 10-03-17 @ 1747) Palliative Quality Palliative Quality: Screen for Code Status: Yes, Screen for Goals of Care: Yes, Screen for Pain: Yes, If Pain Regimen Started, Initiate Bowel Regimen: NA, Screen for Nausea/Vomitting: Yes
[2017-10-04 03:52] LABS: Hematocrit 22.7 % (37.5-50.1); Mean Corpuscular HGB Conc 30.8 g/dL (31.6-35.5); Mean Corpuscular Hemoglobin 28.8 pg (28.0-33.3); Mean Corpuscular Volume 93.4 fL (83.0-100.0); Mean Platelet Volume 8.6 fL (9.4-12.4); Platelet Count 197 K/mcL (140-400); Red Blood Count 2.43 M/mcL (4.19-5.50)
[2017-10-04 05:25] LABS: Calcium 6.1 mg/dL (8.6-10.3); Potassium 5.1 mEq/L (3.5-5.1)
[2017-10-04] MEDS: *HR* Heparin 5,000 UNIT/ML VIAL SQ SCH (05:25)
[2017-10-04] MEDS: Finasteride 5 MG TABLET PO SCH (09:23)
[2017-10-04] MEDS: *HR* Amiodarone 200 MG TABLET PO SCH ×2 (09:23→20:45)
[2017-10-04] MEDS: Aspirin Enteric Coated 81 MG Tablet PO SCH (09:23)
--- NOTE | 2017-10-04 10:18 | Internal Med Progress Note ---
<Mike Adams - Last Filed: 10/04/17 12:37> Date of Encounter: 10/04/17 Time of Encounter: 10:00 - Assessment and plan (1) Anemia Current Visit: Yes Status: Chronic Assessment and plan: - Hgb 7.6 on admission, which dropped from 8.2 on 09/14/17. - Likely due to decreased production secondary to bone marrow suppression from chemotherapy and CKD - No reported hematochezia or melena but given his history of duodenal ulcer, will check stool occult test. - Hgb dropped to 7.0 this morning, raising the concern of active bleeding. - Will give one unit of pRBC transfusion. - Check stool occult test. - Continue to monitor H&H closely. Consider more pRBC transfusion if Hgb < 7. Qualifiers: Anemia type: other cause Other causes of anemia: antineoplastic chemotherapy Qualified Code(s): D64.81 - Anemia due to antineoplastic chemotherapy; T45.1X5A - Adverse effect of antineoplastic and immunosuppressive drugs, initial encounter; T45.1X5A - Adverse effect of antineoplastic and immunosuppressive drugs, initial encounter (2) Hypotension Current Visit: Yes Status: Acute Assessment and plan: - Blood pressure as low 73/48 in ED. - Did response to 1L NS bolus received in ED with blood pressure 102/66. - Likely volume depletion secondary to poor oral intake. - Improves as blood pressure 92/66 this morning. - Continue hydration with IV fluid. - Continue dexamethasone for the questionable adrenal insufficiency. - Continue IV hydration and close monitoring. Qualifiers: Hypotension type: other hypotension type Qualified Code(s): I95.89 - Other hypotension (3) Bamlm-pw-gxtizkr kidney injury Current Visit: No Status: Acute Assessment and plan: - SCr 2.03 / eGFR 38 on admission, worse compared to SCr 1.14 / eGFR >60 on 09/14. - Likely pre-renal secondary to dehydration from poor oral intake. - Improves as SCr 1.79 / eGFR 44 today. - Hydrate with IV fluid. - Avoid nephrotoxin. - Continue to monitor renal function and electrolytes. 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 - [facility] had been notified about patient's hospitalization and no chemotherapy at this time. (5) History of atrial fibrillation Current Visit: Yes Status: Chronic Assessment and plan: - Known long-term history of A-fib, currently on amiodarone. - Not on anticoagulation give his history of GI bleed from duodenal ulcer. - Continue amiodarone. 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 - Continue omeprazole. - Will check stool occult test. (7) DVT prophylaxis Current Visit: No Status: Acute Assessment and plan: - Given the concern of active bleeding, will hold SQ heparin and switch to AICP for mechanical prophylaxis.. - Subjective Interval history: Patient was seen and examined this morning. Patient reports no complaint. Patient denies fatigue, dyspnea, chest pain, lightheadedness, fever, chills. Patient reports last bowel movement was yesterday morning and no visible blood. - Constitutional Vitals: Temp Pulse Resp BP Pulse Ox 98.0 F 94 16 92/66 95 10/04/17 07:16 10/04/17 09:28 10/04/17 07:16 10/04/17 07:16 10/04/17 09:28 General appearance: Present: cachectic, A&O X 3, answers questions appropriately - Head Head exam: Present: normal inspection - Eye Eye exam: Present: EOMI - Neck Neck exam general surgery: Present: normal inspection, supple - Respiratory Respiratory exam: Present: CTAB - Cardiovascular Cardiovascular exam: Present: RRR, +S1, +S2 - GI/Abdominal GI/Abdominal exam: Present: normal bowel sounds, soft. Absent: tenderness - Extremities Exam Extremities exam: Absent: cyanotic, pedal edema - Neurological Exam Neurological exam: Present: alert, no focal deficits. Absent: facial droop, speech deficit - Skin Skin exam: Present: dry, warm Internal Medicine: Result - Labs CBC & Chem 7: 10/04/17 03:21 10/04/17 03:21 Labs: Short CBC 10/04/17 Range/Units 03:21 WBC 6.3 (4.3-11.1) K/mcL Hgb 7.0 L (12.9-16.9) g/dL Hct 22.7 L (37.5-50.1) % Plt Count 197 (140-400) K/mcL BMP 10/04/17 03:21 Sodium 141 Potassium 5.1 Chloride 115 H Carbon Dioxide 16 L BUN 53 H Creatinine 1.79 H Glucose 135 H Calcium 6.1 L Consult Discharge Plan - Plan Referrals: Jimmy Crawford MD [Primary Care Provider] - 10/11/17 1:15 pm () <Jono Corley - Last Filed: 10/04/17 14:34> Date of Encounter: 10/04/17 - Assessment and plan (1) Anemia Current Visit: Yes Status: Chronic Qualifiers: Anemia type: other cause Other causes of anemia: antineoplastic chemotherapy Qualified Code(s): D64.81 - Anemia due to antineoplastic chemotherapy; T45.1X5A - Adverse effect of antineoplastic and immunosuppressive drugs, initial encounter; T45.1X5A - Adverse effect of antineoplastic and immunosuppressive drugs, initial encounter (2) Hypotension Current Visit: Yes Status: Acute Qualifiers: Hypotension type: other hypotension type Qualified Code(s): I95.89 - Other hypotension (3) Zasqr-vz-pqmzael kidney injury Current Visit: No Status: Acute Qualifiers: Acute renal failure type: unspecified Chronic kidney disease stage: stage 3 (moderate) Qualified Code(s): N17.9 - Acute kidney failure, unspecified; N18.3 - Chronic kidney disease, stage 3 (moderate); N18.3 - Chronic kidney disease, stage 3 (moderate) (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 Current Visit: Yes Status: Chronic (5) History of atrial fibrillation Current Visit: Yes Status: Chronic (6) History of duodenal ulcer Current Visit: Yes Status: Chronic (7) DVT prophylaxis Current Visit: No Status: Acute - Constitutional Vitals: Temp Pulse Resp BP Pulse Ox 98.8 F 88 15 105/76 99 10/04/17 13:15 10/04/17 13:15 10/04/17 13:15 10/04/17 13:15 10/04/17 13:15 Internal Medicine: Result - Labs CBC & Chem 7: 10/04/17 03:21 10/04/17 03:21 Labs: Short CBC 10/04/17 Range/Units 03:21 WBC 6.3 (4.3-11.1) K/mcL Hgb 7.0 L (12.9-16.9) g/dL Hct 22.7 L (37.5-50.1) % Plt Count 197 (140-400) K/mcL BMP 10/04/17 03:21 Sodium 141 Potassium 5.1 Chloride 115 H Carbon Dioxide 16 L BUN 53 H Creatinine 1.79 H Glucose 135 H Calcium 6.1 L - Attending Attestation I examined this patient and my medical decision-making was reviewed with the Resident Physician. I agree with the documented findings, disposition and treatment plan as described except to the extent set forth below. 87 M admitted and being managed for hypotension and associated HOLLIE on CKD. He has a PMH of Afib, duondenal ulcer, CKD III, metastatic prostate CA and is on chemo. His blood pressure improved and sustained with IVF , IVF discontinued last evening He has no new complains today PTOT jacob noted, patient was seen post therapy, hb dop today to 7.0. FOBT not done yet Physical exam : AAOX3, atraumatic, conjunctiva is clear and anicteric, chest is CTAB, abdomen is soft and not tender, no pedal edema. Labs and Imaging reviewed GIve 1 unit RBC, obtain FOBT. PTOT evyadiel recommends SNF, SW is following Rest of details as in the resident physician's documentation
[2017-10-04] MEDS ORDERED: 0.9 % Sodium Chloride 250 ML ONE (11:08)
--- NOTE | 2017-10-04 16:31 | Electrocardiograph Report ---
[place] [id number] Test Date: 2017-10-03 Pat Name: Bola Fer Department: 110 Room: 2N13 Gender: M Technical Support Director: VALENTINE : 1930 Requested By: Mike Adams Order Number: [id number] Reading MD: Milton Ibrahim DO Measurements Intervals [place] Rate: 82 P: 6 WI: 152 QRS: 9 QRSD: 77 T: 14 QT: 400 QTc: 438 Interpretive Statements SINUS RHYTHM WITH OCCASIONAL SUPRAVENTRICULAR PREMATURE COMPLEXES LOW QRS VOLTAGE IN PRECORDIAL LEADS Electronically Signed On 10-04-2017 16:30:02 EDT by Milton Ibrahim DO
[2017-10-04] MEDS ORDERED: ZINC OXIDE 20% TP PRN (18:35)
[2017-10-04] MEDS ORDERED: MENTHOL TP PRN (18:35)
[2017-10-04 18:56] LABS: Hematocrit 28.6 % (37.5-50.1)
[2017-10-04 19:04] LABS: Hemoglobin 9.1 g/dL (12.9-16.9)
[2017-10-05 05:00] LABS: Hematocrit 26.3 % (37.5-50.1); Hemoglobin 8.3 g/dL (12.9-16.9); Immature Granulocytes % 2.6 % (0-4); Lymphocytes # 0.9 K/mcL (0.6-4.6); Lymphocytes % 15.8 %; Mean Corpuscular HGB Conc 31.6 g/dL (31.6-35.5); Mean Corpuscular Hemoglobin 28.5 pg (28.0-33.3); Mean Corpuscular Volume 90.4 fL (83.0-100.0); Mean Platelet Volume 8.6 fL (9.4-12.4); Monocytes # 0.3 K/mcL (0.0-1.3); Monocytes % 5.6 %; Neutrophils # 4.5 K/mcL (1.6-8.9); Nucleated Red Blood Cells 0.7 /100 WBC (0); Platelet Count 208 K/mcL (140-400); Red Blood Count 2.91 M/mcL (4.19-5.50); Red Cell Distribution Width 19.9 % (11.5-14.5)
[2017-10-05 05:21] LABS: Calcium 6.5 mg/dL (8.6-10.3)
[2017-10-05] MEDS: Aspirin Enteric Coated 81 MG Tablet PO SCH (08:45)
[2017-10-05] MEDS: Finasteride 5 MG TABLET PO SCH (08:46)
[2017-10-05] MEDS: *HR* Amiodarone 200 MG TABLET PO SCH ×2 (08:46→20:37)
--- NOTE | 2017-10-05 09:36 | Discharge Summary ---
<Mike Adams - Last Filed: 10/05/17 12:54> - NOTES TO OUTPATIENT PROVIDER Notes to Outpatient Provider: Mr. Monroe was hospitalized for HOLLIE and hypotension likely secondary to dehydration in the setting of poor oral intake. Patient's renal function and blood pressure improves with IV fluid hydration. Patient was received one unit of pRBC on 10/04/17 for Hgb 7.0. Latest Hgb is 8.3 on 10/05/17. Orders not resulted at time of discharge: Pending orders 10/04/17 08:08 Occult Blood,Stool [BF] Stat Date of Encounter: 10/05/17 Time of Encounter: 08:30 - Discharge Diagnosis (1) Hypotension Priority: Primary Status: Acute Qualifiers: Hypotension type: other hypotension type Qualified Code(s): I95.89 - Other hypotension (2) Anemia Priority: Secondary Status: Chronic Qualifiers: Anemia type: other cause Other causes of anemia: antineoplastic chemotherapy Qualified Code(s): D64.81 - Anemia due to antineoplastic chemotherapy; T45.1X5A - Adverse effect of antineoplastic and immunosuppressive drugs, initial encounter; T45.1X5A - Adverse effect of antineoplastic and immunosuppressive drugs, initial encounter (3) Hltgg-lf-sqfwbho kidney injury Priority: Secondary Status: Acute Qualifiers: Acute renal failure type: unspecified Chronic kidney disease stage: stage 3 (moderate) Qualified Code(s): N17.9 - Acute kidney failure, unspecified; N18.3 - Chronic kidney disease, stage 3 (moderate); N18.3 - Chronic kidney disease, stage 3 (moderate) (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 Priority: Secondary Status: Chronic (5) History of atrial fibrillation Priority: Secondary Status: Chronic (6) History of duodenal ulcer Priority: Secondary Status: Chronic Hospital course: Mr. Monroe is a 87 year old male with PMH of stage IV prostate cancer and metastatses to bones, on chemotherapy with last one three weeks ago, A-fib on amiodarone, CKD stage 3 and history of duodenal ulcer. Patient was admitted for 10/02/17 for hypotension (BP 73/48 in ED), which is likely secondary to dehydration given patient's poor oral intake along with HOLLIE (SCr 2.03 / eGFR 38 on admission). Patient received IV NS and was encouraged to increase oral intake. Patient received one unit of pRBC transfusion on 10/04/17 for Hgb 7.0. On 10/05/17, the Hgb increased to 8.3 with renal function and blood pressured improve (SCr 1.65 / eGFR 48 and BP 110s/70s). Palliative care was consulted during patient's hospital stay to discuss about his goal of care and patient likes to remain full code. Given patient improves clinically, tolerates oral intake and remains hemodynamically stable, patient can be discharged to SNF as recommended by PT/OT. recycle worker had contacted the SNF of patient's choice regarding placement. The SNF has short-term bed available but patient insists to have long-term bed and states he will not leave the hospital unless the long- term bed at that specific SNF becomes available. The situation was discussed with patient that his current medical condition does not justify the continuation of his hospitalization and insurance will likely not cover the cost after. Patient expressed his understanding and still insisted to stay in hospital. Medically, patient can be discharged and discharge order was placed. Discharge discussed with: patient - Time Spent with Patient Total time spent providing and/or coordinating discharge services: Greater than 30 minutes - Discharge Medications Home Medications: Aspirin [Lo-Dose Aspirin EC] 162 mg PO DAILY 09/01/16 [History] Finasteride [Proscar] 5 mg PO DAILY 09/01/16 [History] Multivit-Min/FA/Lycopen/Lutein [Centrum Silver Men Tablet] 1 tab PO DAILY [History] Potassium Chloride [Klor-Con 10] 40 meq PO DAILY 09/01/16 [History] Pravastatin Sodium [Pravachol] 20 mg PO HS 09/01/16 [History] Vitamin E Acid Succinate [Vitamin E] 400 units PO BID #60 tab 04/18/17 [Rx] predniSONE [PredniSONE] 5 mg PO BIDWM #60 tablet 06/26/17 [Rx] Timolol Maleate 0.5% 1 drop RIGHT EYE BID 07/27/17 [History] Dexamethasone [Decadron] 8 mg PO BID 08/07/17 [History] Omeprazole [PriLOSEC] 40 mg PO BID #16 cap 08/15/17 [Rx] Amiodarone [Cordarone] 200 mg PO BID tablet 08/30/17 [Rx] Calcium Carbonate [Tums] 1,000 mg PO QID tab.chew 08/30/17 [Rx] Dronabinol [Marinol] 5 mg PO BIDLS 30 Days #60 capsule 08/30/17 [Rx] Furosemide [Lasix] 20 mg PO Q48H PRN #10 08/30/17 [Rx] Saliva Stimulant [Biotene Moisturizing Rinse] 1 spray PO Q2H PRN bottle [Rx] Tamsulosin [Flomax] 0.4 mg PO HS capsule 08/30/17 [Rx] Magnesium Hydroxide [Milk of Magnesia] 30 ml PO DAILY PRN 09/12/17 [History] Mirtazapine 7.5 mg PO HS 09/12/17 [History] Loperamide HCl [Imodium A-D] 2 mg PO Q4H PRN 10/02/17 [History] Patient Taking Own Medication 0 each TP TID PRN each 10/05/17 [Rx] Allergies/Adverse Reactions: 3 Allergy/AdvReac Type Severity Reaction Status Date / Time terbinafine [From Lamisil] Allergy Rash Verified 10/02/17 12:00 Date of admission: 10/03/17 10:47 Primary care physician: Jimmy Crawford MD Consults: 10/03/17 13:51 Consult to Occupational Therapy [CONS] Routine Comment: Evaluate, develop and implement POC Reason for Consult: ECF placement. Does patient have active BEDREST order?: No Is patient medically & hemodynamically stable?: Yes Consult to Physical Therapy [CONS] Routine Comment: Evaluate, develop and implement POC Reason for Consult: ECF placement Does patient have active BEDREST order?: No Is patient medically & hemodynamically stable?: Yes Discharging clinician: Mike Adasm Anticipated date of discharge: 10/05/17 - Constitutional Vitals: Temp Pulse Resp BP Pulse Ox 98.1 F 95 16 118/72 99 10/05/17 07:29 10/05/17 09:07 10/05/17 09:07 10/05/17 07:29 10/05/17 09:07 General appearance: Present: cachectic, A&O X 3, answers questions appropriately - Head Head exam: Present: normal inspection - Eye Eye exam: Present: EOMI - Neck Neck exam general surgery: Present: normal inspection, trachea midline - Respiratory Respiratory exam: Present: CTAB - Cardiovascular Cardiovascular exam: Present: RRR, +S1, +S2 - GI/Abdominal GI/Abdominal exam: Present: normal bowel sounds, soft. Absent: tenderness - Extremities Exam Extremities exam: Absent: cyanotic, pedal edema - Neurological Exam Neurological exam: Present: alert, no focal deficits. Absent: facial droop, speech deficit - Skin Skin exam: Present: dry, warm - Patient Status Disposition: Transfer SNF Condition: Fair Functional capacity at discharge: uses cane/walker Overall status at discharge: patient is progressing back to baseline - Discharge Instructions Follow Up With: Jimmy Crawford MD [Primary Care Provider] - 10/11/17 1:15 pm () Additional Instructions: Please follow up with your primary care physician within a week after discharge. Please eat and drink as much as you can. - Diet and Activity Activity: as per physical therapy Diet: advance to your usual diet - VTE Documentation of Mechanical Device: Intermittent pneumatic compression device <Jono Corley - Last Filed: 10/05/17 14:31> Orders not resulted at time of discharge: Pending orders 10/04/17 08:08 Occult Blood,Stool [BF] Stat Date of Encounter: 10/05/17 - Discharge Diagnosis (1) Anemia Status: Chronic Qualifiers: Anemia type: other cause Other causes of anemia: antineoplastic chemotherapy Qualified Code(s): D64.81 - Anemia due to antineoplastic chemotherapy; T45.1X5A - Adverse effect of antineoplastic and immunosuppressive drugs, initial encounter; T45.1X5A - Adverse effect of antineoplastic and immunosuppressive drugs, initial encounter (2) Hypotension Status: Acute Qualifiers: Hypotension type: other hypotension type Qualified Code(s): I95.89 - Other hypotension (3) Hlfzs-kt-sfyhryg kidney injury Status: Acute Qualifiers: Acute renal failure type: unspecified Chronic kidney disease stage: stage 3 (moderate) Qualified Code(s): N17.9 - Acute kidney failure, unspecified; N18.3 - Chronic kidney disease, stage 3 (moderate); N18.3 - Chronic kidney disease, stage 3 (moderate) (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 Status: Chronic (5) History of atrial fibrillation Status: Chronic (6) History of duodenal ulcer Status: Chronic (7) DVT prophylaxis Status: Acute Hospital course: Mr. Monroe is a 87 year old male - Time Spent with Patient Total time spent providing and/or coordinating discharge services: Date of admission: 10/03/17 10:47 Primary care physician: Jimmy Crawford MD Consults: 10/03/17 13:51 Consult to Occupational Therapy [CONS] Routine Comment: Evaluate, develop and implement POC Reason for Consult: ECF placement. Does patient have active BEDREST order?: No Is patient medically & hemodynamically stable?: Yes Consult to Physical Therapy [CONS] Routine Comment: Evaluate, develop and implement POC Reason for Consult: ECF placement Does patient have active BEDREST order?: No Is patient medically & hemodynamically stable?: Yes - Constitutional Vitals: Temp Pulse Resp BP Pulse Ox 99.2 F 81 17 115/84 99 10/05/17 11:45 10/05/17 11:45 10/05/17 11:45 10/05/17 11:45 10/05/17 11:45 - Attending Attestation I examined this patient and my medical decision-making was reviewed with the Resident Physician. I agree with the documented findings, disposition and treatment plan as described except to the extent set forth below. Seen and examined at bedside Chronically ill-looking, not in distress, chest is CTAB, abdomen is bening, no pedal edema. Hb and BP stable Likely anemia is due to bone marrow suppression from chemo Other chronic medical problems are stable Patient is medically stable at this time, SW aware of challenges to get patient placed in SNF Rest as in resident physician's documentation
[2017-10-06 08:11] LABS: Hematocrit 26.6 % (37.5-50.1); Hemoglobin 8.3 g/dL (12.9-16.9); Immature Granulocytes % 4.6 % (0-4); Lymphocytes # 1.2 K/mcL (0.6-4.6); Lymphocytes % 18.9 %; Mean Corpuscular HGB Conc 31.2 g/dL (31.6-35.5); Mean Corpuscular Hemoglobin 28.7 pg (28.0-33.3); Mean Platelet Volume 8.6 fL (9.4-12.4); Monocytes # 0.5 K/mcL (0.0-1.3); Monocytes % 7.4 %; Neutrophils # 4.5 K/mcL (1.6-8.9); Nucleated Red Blood Cells 0.6 /100 WBC (0); Platelet Count 202 K/mcL (140-400); Red Blood Count 2.89 M/mcL (4.19-5.50); Red Cell Distribution Width 19.7 % (11.5-14.5); Segmented Neutrophils % 69.1 %
[2017-10-06 08:34] LABS: Calcium 6.5 mg/dL (8.6-10.3); Potassium 4.5 mEq/L (3.5-5.1)
[2017-10-06] MEDS: Finasteride 5 MG TABLET PO SCH (09:07)
[2017-10-06] MEDS: *HR* Amiodarone 200 MG TABLET PO SCH ×2 (09:07→21:09)
[2017-10-06] MEDS: Aspirin Enteric Coated 81 MG Tablet PO SCH (09:07)
--- NOTE | 2017-10-06 13:00 | Internal Med Progress Note ---
<Mike Adams - Last Filed: 10/06/17 12:57> Date of Encounter: 10/06/17 Time of Encounter: 09:00 - Assessment and plan (1) Anemia Current Visit: Yes Status: Chronic Assessment and plan: - Hgb 7.6 on admission, which dropped from 8.2 on 09/14/17. - Likely due to decreased production secondary to bone marrow suppression from chemotherapy and CKD - No reported hematochezia or melena. - Status post one unit of pRBC transfusion on 10/04/17. - Stool occult test positive but feel active bleeding at this time less likely given vital signs and Hgb remain stable as yesterday (Hgb 8.3). - Medically stable for discharge but patient is waiting for the SNF bed patient specifically requests to become available. Qualifiers: Anemia type: other cause Other causes of anemia: antineoplastic chemotherapy Qualified Code(s): D64.81 - Anemia due to antineoplastic chemotherapy; T45.1X5A - Adverse effect of antineoplastic and immunosuppressive drugs, initial encounter; T45.1X5A - Adverse effect of antineoplastic and immunosuppressive drugs, initial encounter (2) Hypotension Current Visit: Yes Status: Resolved Assessment and plan: - Blood pressure as low as 73/48 in ED. - Did response to 1L NS bolus received in ED with blood pressure 102/66. - Likely volume depletion secondary to poor oral intake. - Resolved as blood pressure 110s/70s this morning. - Encourage oral fluid intake. Qualifiers: Hypotension type: other hypotension type Qualified Code(s): I95.89 - Other hypotension (3) Bptqn-eh-zywicot kidney injury Current Visit: No Status: Acute Assessment and plan: - SCr 2.03 / eGFR 38 on admission, worse compared to SCr 1.14 / eGFR >60 on 09/14. - Likely pre-renal secondary to dehydration from poor oral intake. - Continues to improve as SCr 1.47 / eGFR 46 today. - Encourage oral fluid intake. - Avoid nephrotoxin. 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 - [facility] had been notified about patient's hospitalization and no chemotherapy at this time. (5) History of atrial fibrillation Current Visit: Yes Status: Chronic Assessment and plan: - Known long-term history of A-fib, currently on amiodarone. - Not on anticoagulation give his history of GI bleed from duodenal ulcer. - Continue amiodarone. 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 - Continue omeprazole. Okay to resume Tums as patient requests. (7) DVT prophylaxis Current Visit: No Status: Acute Assessment and plan: - Continue calf pump for mechanical prophylaxis.. - Subjective Interval history: Patient was seen and examined this morning. Patient reports feeling tired but admits not sleeping well last night. Patient denies fatigue, dyspnea, chest pain , lightheadedness, fever, chills. Patient reports last bowel movement was this morning and no visible blood noted. - Constitutional Vitals: Temp Pulse Resp BP Pulse Ox 98.0 F 80 14 118/70 97 10/06/17 08:00 10/06/17 08:00 10/06/17 08:00 10/06/17 08:00 10/06/17 08:00 General appearance: Present: cachectic, A&O X 3, answers questions appropriately - Head Head exam: Present: normal inspection - Eye Eye exam: Present: EOMI - Neck Neck exam general surgery: Present: normal inspection, trachea midline - Respiratory Respiratory exam: Present: CTAB - Cardiovascular Cardiovascular exam: Present: RRR, +S1, +S2 - GI/Abdominal GI/Abdominal exam: Present: normal bowel sounds, soft. Absent: tenderness - Extremities Exam Extremities exam: Absent: cyanotic, pedal edema - Neurological Exam Neurological exam: Present: alert, no focal deficits. Absent: facial droop, speech deficit - Skin Skin exam: Present: dry, warm Internal Medicine: Result - Labs CBC & Chem 7: 10/06/17 07:46 10/06/17 07:46 Labs: Short CBC 10/06/17 Range/Units 07:46 WBC 6.5 (4.3-11.1) K/mcL Hgb 8.3 L (12.9-16.9) g/dL Hct 26.6 L (37.5-50.1) % Plt Count 202 (140-400) K/mcL Neutrophils # 4.5 (1.6-8.9) K/mcL BMP 10/06/17 07:46 Sodium 141 Potassium 4.5 Chloride 113 H Carbon Dioxide 19 L BUN 52 H Creatinine 1.47 H Glucose 87 Calcium 6.5 L - VTE Documentation of Mechanical Device: Intermittent pneumatic compression device Consult Discharge Plan - Plan Additional Instructions: Please follow up with your primary care physician within a week after discharge. Please eat and drink as much as you can. Referrals: Jimmy Crawford MD [Primary Care Provider] - 10/11/17 1:15 pm () <Jono Corley - Last Filed: 10/06/17 13:38> Date of Encounter: 10/06/17 - Assessment and plan (1) Anemia Current Visit: Yes Status: Chronic Qualifiers: Anemia type: other cause Other causes of anemia: antineoplastic chemotherapy Qualified Code(s): D64.81 - Anemia due to antineoplastic chemotherapy; T45.1X5A - Adverse effect of antineoplastic and immunosuppressive drugs, initial encounter; T45.1X5A - Adverse effect of antineoplastic and immunosuppressive drugs, initial encounter (2) Hypotension Current Visit: Yes Status: Resolved Qualifiers: Hypotension type: other hypotension type Qualified Code(s): I95.89 - Other hypotension (3) Lclos-rc-ynsgwag kidney injury Current Visit: No Status: Acute Qualifiers: Acute renal failure type: unspecified Chronic kidney disease stage: stage 3 (moderate) Qualified Code(s): N17.9 - Acute kidney failure, unspecified; N18.3 - Chronic kidney disease, stage 3 (moderate); N18.3 - Chronic kidney disease, stage 3 (moderate) (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 Current Visit: Yes Status: Chronic (5) History of atrial fibrillation Current Visit: Yes Status: Chronic (6) History of duodenal ulcer Current Visit: Yes Status: Chronic (7) DVT prophylaxis Current Visit: No Status: Acute - Constitutional Vitals: Temp Pulse Resp BP Pulse Ox 98.0 F 80 14 118/70 97 10/06/17 08:00 10/06/17 08:00 10/06/17 08:00 10/06/17 08:00 10/06/17 08:00 Internal Medicine: Result - Labs CBC & Chem 7: 10/06/17 07:46 10/06/17 07:46 Labs: Short CBC 10/06/17 Range/Units 07:46 WBC 6.5 (4.3-11.1) K/mcL Hgb 8.3 L (12.9-16.9) g/dL Hct 26.6 L (37.5-50.1) % Plt Count 202 (140-400) K/mcL Neutrophils # 4.5 (1.6-8.9) K/mcL BMP 10/06/17 07:46 Sodium 141 Potassium 4.5 Chloride 113 H Carbon Dioxide 19 L BUN 52 H Creatinine 1.47 H Glucose 87 Calcium 6.5 L - Attending Attestation I examined this patient and my medical decision-making was reviewed with the Resident Physician. I agree with the documented findings, disposition and treatment plan as described except to the extent set forth below. Seen and examined at bedside Chronically ill-looking, not in distress, chest is CTAB, abdomen is bening, no pedal edema. Hb and BP stable Lab and Imaging reviewed, his hemoglobin is stable, no leukocytosis, patient is at baseline. Fecal occult blood test is positive. However, patient proposes to his problem no melena, no hematemesis no hematuria. And his hemoglobin is stable. Continue current management, there is currently no indication for gastroenterology review of endoscopy. We will check ECW to review patient's prior scopes Rest of details is as documented in the resident physician's progress note.
[2017-10-06] MEDS ORDERED: Simethicone 80 MG TAB.CHEW PO PRN (13:01)
[2017-10-07 05:34] LABS: Hematocrit 26.1 % (37.5-50.1); Hemoglobin 8.4 g/dL (12.9-16.9); Mean Corpuscular HGB Conc 32.2 g/dL (31.6-35.5); Mean Platelet Volume 8.6 fL (9.4-12.4); Platelet Count 181 K/mcL (140-400); Red Cell Distribution Width 19.4 % (11.5-14.5)
[2017-10-07 06:29] VITALS: BP 110/74
[2017-10-07] MEDS: *HR* Amiodarone 200 MG TABLET PO SCH (09:55)
[2017-10-07] MEDS: Aspirin Enteric Coated 81 MG Tablet PO SCH (09:56)
[2017-10-07] MEDS: Finasteride 5 MG TABLET PO SCH (09:56)
--- NOTE | 2017-10-07 11:38 | Physician Discharge Referral ---
ExtendedCare Referral Info Transfer To: [facility] Provider in Charge after Transfer: PCP Institutional Level of Care: Skilled - Diagnosis (1) Anemia Priority: Primary Status: Chronic (2) Hypotension Priority: Primary Status: Resolved (3) Cpbtu-wr-eqlhlsj kidney injury Priority: Primary Status: Acute (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 Priority: Secondary Status: Chronic (5) History of atrial fibrillation Priority: Secondary Status: Chronic (6) History of duodenal ulcer Priority: Secondary Status: Chronic (7) DVT prophylaxis Priority: Secondary Status: Acute Prognosis: Fair Aware of Diagnosis: Patient Aware of Prognosis: Patient - Transfer Medications Home Medications: Aspirin [Lo-Dose Aspirin EC] 162 mg PO DAILY 09/01/16 [History] Finasteride [Proscar] 5 mg PO DAILY 09/01/16 [History] Multivit-Min/FA/Lycopen/Lutein [Centrum Silver Men Tablet] 1 tab PO DAILY [History] Potassium Chloride [Klor-Con 10] 40 meq PO DAILY 09/01/16 [History] Pravastatin Sodium [Pravachol] 20 mg PO HS 09/01/16 [History] Vitamin E Acid Succinate [Vitamin E] 400 units PO BID #60 tab 04/18/17 [Rx] predniSONE [PredniSONE] 5 mg PO BIDWM #60 tablet 06/26/17 [Rx] Timolol Maleate 0.5% 1 drop RIGHT EYE BID 07/27/17 [History] Dexamethasone [Decadron] 8 mg PO BID 08/07/17 [History] Omeprazole [PriLOSEC] 40 mg PO BID #16 cap 08/15/17 [Rx] Amiodarone [Cordarone] 200 mg PO BID tablet 08/30/17 [Rx] Calcium Carbonate [Tums] 1,000 mg PO QID tab.chew 08/30/17 [Rx] Dronabinol [Marinol] 5 mg PO BIDLS 30 Days #60 capsule 08/30/17 [Rx] Furosemide [Lasix] 20 mg PO Q48H PRN #10 08/30/17 [Rx] Saliva Stimulant [Biotene Moisturizing Rinse] 1 spray PO Q2H PRN bottle [Rx] Tamsulosin [Flomax] 0.4 mg PO HS capsule 08/30/17 [Rx] Magnesium Hydroxide [Milk of Magnesia] 30 ml PO DAILY PRN 09/12/17 [History] Mirtazapine 7.5 mg PO HS 09/12/17 [History] Loperamide HCl [Imodium A-D] 2 mg PO Q4H PRN 10/02/17 [History] Patient Taking Own Medication 0 each TP TID PRN each 10/05/17 [Rx] Allergies/Adverse Reactions: 3 Allergy/AdvReac Type Severity Reaction Status Date / Time terbinafine [From Lamisil] Allergy Rash Verified 10/02/17 12:00 - Respiratory Orders Smoking Cessation: Smoking cessation has been advised. For more information, call the [place] Tobacco Quit Line at 5-971-ZWHUNOW. CERTIFICATION: I certify that the transfer of the above named patient to an Extended Care Facility is necessary for the continuing treatment of the diagnosis listed. The above information is true and accurate reflection of patient's current condition. Confidential - Redisclosure prohibited without a patient's written consent.
== END 2017-10-07 15:54 | DRG 683 ==
LOC: 2NNU 11:53 → EMEROO 11:53 → SUATTDRO 16:58 → 2NNU 17:50 → 2NENU 10-05 16:11
PROVIDERS: ADMIT Internal Medicine; ATTEND Internal Medicine